=== PATIENT | male | born 1945 | race Caucasian/White ===

== ENCOUNTER → 2017-10-18 | Outpatient (REF) | payer MEDICARE | LOC: M SMT 17:00 | DX: R97.20 Elevated prostate specific antigen [PSA] (principal); Z79.82 Long term (current) use of aspirin; Z79.899 Other long term (current) drug therapy | CPT/HCPCS: 87086 ==

== ENCOUNTER → 2017-10-29 | Outpatient (CLI) | payer MEDICARE | LOC: M SMT PRO 09:07 | DX: C61 Malignant neoplasm of prostate (principal) | CPT/HCPCS: G0416 ==

== ENCOUNTER → 2017-11-15 | Outpatient (CLI) | payer MEDICARE ==
[~2017-11-15] MED LIST: ISOVUE-370 76% 100ML VIAL (Q9967) As Ordered
== END ==
LOC: M RAD 09:08
DX: C61 Malignant neoplasm of prostate (principal)
CPT/HCPCS: Q9967

== ENCOUNTER 2018-01-08 06:01 | Inpatient (IN) | payer MEDICARE ==
[2018-01-08] MEDS ORDERED: LR 1,000 ML IV (06:15)
[2018-01-08] MEDS ORDERED: ROCURONIUM BROMIDE 50 MG/5 ML VIAL As Ordered ×2 (07:12→09:22)
[2018-01-08] MEDS ORDERED: LIDOCAINE 2% INJ 100 MG/5 ML SDV (FOR ANES.) As Ordered (07:12)
[2018-01-08] MEDS ORDERED: dexameTHASONE 4 MG/ML 1ML VIAL (J1100) As Ordered (07:12)
[2018-01-08] MEDS ORDERED: PROPOFOL 200 MG/20 ML VIAL As Ordered (07:12)
[2018-01-08] MEDS ORDERED: fentaNYL 250 MCG/5 ML INJECTION (J3010) As Ordered (07:13)
[2018-01-08] MEDS ORDERED: MIDAZOLAM INJ 2 MG/2 ML VIAL (J2250) As Ordered ×2 (07:15→08:55)
[2018-01-08] MEDS ORDERED: ETOMIDATE INJ 20MG/10ML VIAL As Ordered (07:26)
[2018-01-08] MEDS ORDERED: LABETALOL HCL 100 MG/20 ML VIAL As Ordered (07:41)
[2018-01-08] MEDS: HEPARIN SOD (PORCINE) 5000 UNITS/ML VIAL SQ (07:46)
[2018-01-08] MEDS ORDERED: PERCOCET 5MG/325MG TAB PO (08:00)
[2018-01-08] MEDS ORDERED: MORPHINE 4 MG/ML 1ML VIAL/SYRINGE (J2270) IV (08:00)
[2018-01-08] MEDS ORDERED: NITROGLYCERIN 0.4 MG SUBL TABLET SL (08:00)
[2018-01-08] MEDS ORDERED: ACETAMINOPHEN TAB 650MG DOSE (2X325MG) PO (08:00)
[2018-01-08] MEDS ORDERED: ONDANSETRON 4MG/2ML VIAL (J2405) IV ×2 (08:00→13:00)
[2018-01-08] MEDS ORDERED: GLYCOPYRROLATE INJ 0.2 MG/ML 2 ML VIAL As Ordered ×2 (08:17→10:06)
[2018-01-08] MEDS: LIDOCAINE 1% SDV INJ 30 ML VIAL As Ordered (08:20)
[2018-01-08] MEDS: BUPIVACAINE HCL 0.25% 30 ML VIAL As Ordered (08:20)
[2018-01-08] MEDS: OXYMETAZOLINE NASAL SPRAY (AFRIN) As Ordered (08:40)
[2018-01-08] MEDS: DOCUSATE SODIUM 100 MG CAP PO ×2 (09:00→20:24)
[2018-01-08] MEDS ORDERED: HYDROmorphone HCL 2 MG/ML 1ML VIAL (J1170) As Ordered (10:06)
[2018-01-08] MEDS ORDERED: NEOSTIGMINE 10 MG/10 ML VIAL (J2710) As Ordered (10:06)
[2018-01-08] MEDS ORDERED: MORPHINE 10 MG/ML 1ML VIAL (J2270) IV (13:00)
[2018-01-08] MEDS: LR 1,000 ML IV (13:00)
[2018-01-08] MEDS ORDERED: fentaNYL 100 MCG/2 ML INJECTION (J3010) IV (13:00)
[2018-01-08 13:21] LABS: HEMATOCRIT 36.9 % (42.0-52.0); HEMOGLOBIN 12.3 g/dl (13.5-17.5); MEAN CORPUSCULAR HEMOGLOBIN 31.9 pg (27.0-33.0); MEAN CORPUSCULAR HGB CONC 33.3 g/dl (32.0-36.5); MEAN CORPUSCULAR VOLUME 95.8 fl (80.0-96.0); PLATELET COUNT, AUTOMATED 324 10^3/uL (150-450); RED BLOOD COUNT 3.85 10^6/uL (4.30-6.10); RED CELL DISTRIBUTION WIDTH 13.3 % (11.5-14.5); WHITE BLOOD COUNT 19.6 10^3/uL (4.0-10.0)
[2018-01-08 13:40] LABS: ANION GAP 7 MEQ/L (8-16); BLOOD UREA NITROGEN 11 MG/DL (7-18); CALCIUM LEVEL 9.1 MG/DL (8.8-10.2); CARBON DIOXIDE LEVEL 24 MEQ/L (21-32); CHLORIDE LEVEL 106 MEQ/L (98-107); GLOMERULAR FILTRATION RATE > 60.0 (>42); GLUCOSE, FASTING 122 MG/DL (70-100); POTASSIUM SERUM 4.3 MEQ/L (3.5-5.1); SODIUM LEVEL 137 MEQ/L (136-145)
[2018-01-08] MEDS: NS 1,000 ML IV ×3 (15:48→23:41)
[2018-01-08] MEDS: CEFAZOLIN SOD 1 GM in APPROPRIATE DILUENT 1 EA IV ×2 (16:40→23:45)
[2018-01-08] MEDS: HEPARIN SOD (PORCINE) 5000 UNITS/ML VIAL SC ×2 (16:41→20:24)
[2018-01-08] MEDS: PERCOCET 5MG/325MG TAB PO (20:24)
[2018-01-09] MEDS: HEPARIN SOD (PORCINE) 5000 UNITS/ML VIAL SC ×2 (05:44→15:05)
[2018-01-09 06:43] LABS: MEAN CORPUSCULAR HEMOGLOBIN 31.3 pg (27.0-33.0); MEAN CORPUSCULAR HGB CONC 33.7 g/dl (32.0-36.5); MEAN CORPUSCULAR VOLUME 92.9 fl (80.0-96.0); PLATELET COUNT, AUTOMATED 280 10^3/uL (150-450); RED BLOOD COUNT 3.23 10^6/uL (4.30-6.10); RED CELL DISTRIBUTION WIDTH 13.3 % (11.5-14.5); WHITE BLOOD COUNT 14.4 10^3/uL (4.0-10.0)
[2018-01-09 06:49] LABS: HEMOGLOBIN 10.1 g/dl (13.5-17.5)
[2018-01-09 07:07] LABS: ANION GAP 7 MEQ/L (8-16); BLOOD UREA NITROGEN 10 MG/DL (7-18); CALCIUM LEVEL 7.8 MG/DL (8.8-10.2); CARBON DIOXIDE LEVEL 22 MEQ/L (21-32); CHLORIDE LEVEL 108 MEQ/L (98-107); CREATININE FOR GFR 0.73 MG/DL (0.70-1.30); GLOMERULAR FILTRATION RATE > 60.0 (>42); GLUCOSE, FASTING 105 MG/DL (70-100); SODIUM LEVEL 137 MEQ/L (136-145)
[2018-01-09] MEDS: NS 1,000 ML IV (07:32)
[2018-01-09] MEDS: ASPIRIN 81 MG ENTERIC TAB PO (08:56)
[2018-01-09] MEDS: LOSARTAN 50 MG TAB PO (08:57)
[2018-01-09] MEDS: amLODIPine 5 MG TAB PO (08:58)
[2018-01-09] MEDS: ATORVASTATIN 10 MG TAB PO (08:58)
[2018-01-09] MEDS: PANTOPRAZOLE 40MG TAB (PROTONIX) PO (08:59)
[2018-01-09] MEDS: hydroCHLOROthiazide 25 MG TAB PO (08:59)
[2018-01-09] MEDS: METOPROLOL TART 25 MG TABLET PO (08:59)
[2018-01-09] MEDS: DOCUSATE SODIUM 100 MG CAP PO (09:00)
== END 2018-01-09 15:50 | disposition home or self-care (01) | DRG 708 ==
LOC: M OR 06:01 → M MS5PR 15:39
PROC: 0VT04ZZ Resection of Prostate, Percutaneous Endoscopic Approach (ICD-10-PCS; principal; 2018-01-08 07:30)
PROC: 07BC4ZX Excision of Pelvis Lymphatic, Percutaneous Endoscopic Approach, Diagnostic (ICD-10-PCS; 2018-01-08 07:30)
PROC: 0VT34ZZ Resection of Bilateral Seminal Vesicles, Percutaneous Endoscopic Approach (ICD-10-PCS; 2018-01-08 07:30)
PROC: 8E0W4CZ Robotic Assisted Procedure of Trunk Region, Percutaneous Endoscopic Approach (ICD-10-PCS; 2018-01-08 07:30)
PROC: 0VBQ4ZZ Excision of Bilateral Vas Deferens, Percutaneous Endoscopic Approach (ICD-10-PCS; 2018-01-08 07:30)
DX: C61 Malignant neoplasm of prostate (principal); I10 Essential (primary) hypertension; E78.5 Hyperlipidemia, unspecified; M06.9 Rheumatoid arthritis, unspecified; Z79.82 Long term (current) use of aspirin; Z79.02 Long term (current) use of antithrombotics/antiplatelets; Z79.899 Other long term (current) drug therapy; Z95.9 Presence of cardiac and vascular implant and graft, unspecified; Z87.891 Personal history of nicotine dependence

== ENCOUNTER → 2018-02-13 | Outpatient (CLI) | payer MEDICARE ==
[2018-02-13 18:48] LABS: PROSTATIC SPECIFIC AG MONITOR 2.78 NG/ML (< 4.0)
== END ==
LOC: M SMT 13:39
DX: C61 Malignant neoplasm of prostate (principal)
CPT/HCPCS: 84153

== ENCOUNTER 2018-02-18 01:25 | Inpatient (IN) | payer MEDICARE ==
[2018-02-18 01:56] LABS: BASO # 0.1 10^3/uL (0.0-0.2); BASO % 0.2 % (0.0-1.0); EOS % 0.1 % (0.0-3.0); HEMATOCRIT 31.8 % (42.0-52.0); HEMOGLOBIN 10.8 g/dl (13.5-17.5); IMMATURE GRANULOCYTE % 2.8 % (0-3.0); LYMPH # 0.3 10^3/uL (1.5-4.5); LYMPH % 0.8 % (24.0-44.0); MEAN CORPUSCULAR HEMOGLOBIN 31.3 pg (27.0-33.0); MEAN CORPUSCULAR VOLUME 92.2 fl (80.0-96.0); NEUTROPHILS % 91.1 % (36.0-66.0); PLATELET COUNT, AUTOMATED 273 10^3/uL (150-450); RED BLOOD COUNT 3.45 10^6/uL (4.30-6.10); RED CELL DISTRIBUTION WIDTH 13.5 % (11.5-14.5)
[2018-02-18 02:25] LABS: ALBUMIN 2.9 GM/DL (3.2-5.2); ALKALINE PHOSPHATASE 55 U/L (45-117); ALT/SGPT 19 U/L (12-78); ANION GAP 10 MEQ/L (8-16); AST/SGOT 22 U/L (7-37); BILIRUBIN,DIRECT 0.7 MG/DL (0.0-0.2); BILIRUBIN,TOTAL 1.4 MG/DL (0.2-1.0); BLOOD UREA NITROGEN 16 MG/DL (7-18); CALCIUM LEVEL 8.5 MG/DL (8.8-10.2); CARBON DIOXIDE LEVEL 21 MEQ/L (21-32); CHLORIDE LEVEL 108 MEQ/L (98-107); CREATININE FOR GFR 0.99 MG/DL (0.70-1.30); GLOMERULAR FILTRATION RATE > 60.0 (>42); GLUCOSE, FASTING 96 MG/DL (70-100); POTASSIUM SERUM 3.2 MEQ/L (3.5-5.1); SODIUM LEVEL 139 MEQ/L (136-145); TOTAL PROTEIN 5.8 GM/DL (6.4-8.2)
[2018-02-18 02:30] LABS: NEUTROPHILS # 36.2 10^3/uL (1.8-7.7); POS COUNT POS FLAG; POSITIVE DIFF POS FLAG; WHITE BLOOD COUNT 39.8 10^3/uL (4.0-10.0)
[2018-02-18] MEDS: ACETAMINOPHEN TAB 650MG DOSE (2X325MG) PO ×4 (03:07→21:08)
[2018-02-18] MEDS: PIPERACILLIN/TAZOBACTAM SOD 3.375 GM in D5W MINI-BAG PLUS 50 ML IV ×4 (03:15→21:08)
[2018-02-18] MEDS ORDERED: ONDANSETRON 4MG/2ML VIAL (J2405) IV (04:30)
[2018-02-18] MEDS: NS 1,000 ML IV ×3 (05:35→14:57)
[2018-02-18 08:16] LABS: REASON FOR REVIEW WBC/LEUKEMIA/BLAST; SLIDE REVIEW Report; SOURCE PERIPHERAL SMEAR
[2018-02-18] MEDS: FOLIC ACID 1 MG TAB PO (09:32)
[2018-02-18] MEDS: VITAMIN D 1,000 INTERNATIONAL UNITS TABLET PO (09:32)
[2018-02-18] MEDS: PANTOPRAZOLE 40MG TAB (PROTONIX) PO (09:32)
[2018-02-18] MEDS ORDERED: PILL CRUSHER/CUTTER 1 EACH XX (10:30)
[2018-02-18] MEDS: traMADol 50 MG TAB PO (14:59)
[2018-02-18] MEDS ORDERED: LIDOCAINE 1% MDV 20ML VIAL As Ordered (15:11)
[2018-02-18] MEDS: ATORVASTATIN 10 MG TAB PO (17:11)
[2018-02-18] MEDS: POTASSIUM CHLORIDE 10 MEQ SR TABLET PO (21:44)
[2018-02-19] MEDS: NS 1,000 ML IV ×2 (01:16→11:58)
[2018-02-19] MEDS: PIPERACILLIN/TAZOBACTAM SOD 3.375 GM in D5W MINI-BAG PLUS 50 ML IV ×4 (03:32→20:56)
[2018-02-19 05:39] LABS: ALBUMIN 2.1 GM/DL (3.2-5.2); ALBUMIN/GLOBULIN RATIO 0.64 (1.00-1.93); ALKALINE PHOSPHATASE 63 U/L (45-117); ALT/SGPT 13 U/L (12-78); ANION GAP 8 MEQ/L (8-16); AST/SGOT 18 U/L (7-37); BILIRUBIN,TOTAL 0.8 MG/DL (0.2-1.0); BLOOD UREA NITROGEN 16 MG/DL (7-18); CARBON DIOXIDE LEVEL 23 MEQ/L (21-32); CHLORIDE LEVEL 108 MEQ/L (98-107); CREATININE FOR GFR 0.91 MG/DL (0.70-1.30); GLOMERULAR FILTRATION RATE > 60.0 (>42); GLUCOSE, FASTING 108 MG/DL (70-100); MAGNESIUM LEVEL 1.8 MG/DL (1.8-2.4); POTASSIUM SERUM 3.3 MEQ/L (3.5-5.1); SODIUM LEVEL 139 MEQ/L (136-145); TOTAL PROTEIN 5.4 GM/DL (6.4-8.2)
[2018-02-19 06:02] LABS: BASO # 0.1 10^3/uL (0.0-0.2); BASO % 0.2 % (0.0-1.0); EOS # 0.4 10^3/uL (0.0-0.50); EOS % 1.2 % (0.0-3.0); HEMATOCRIT 28.7 % (42.0-52.0); HEMOGLOBIN 9.8 g/dl (13.5-17.5); IMMATURE GRANULOCYTE % 4.9 % (0-3.0); LYMPH # 0.3 10^3/uL (1.5-4.5); LYMPH % 0.9 % (24.0-44.0); MEAN CORPUSCULAR HEMOGLOBIN 31.4 pg (27.0-33.0); MEAN CORPUSCULAR HGB CONC 34.1 g/dl (32.0-36.5); MONO # 0.8 10^3/uL (0.0-0.8); MONO % 2.4 % (0.0-5.0); NEUTROPHILS % 90.4 % (36.0-66.0); PLATELET COUNT, AUTOMATED 260 10^3/uL (150-450); RED BLOOD COUNT 3.12 10^6/uL (4.30-6.10); RED CELL DISTRIBUTION WIDTH 13.5 % (11.5-14.5)
[2018-02-19 06:03] LABS: NEUTROPHILS # 30.6 10^3/uL (1.8-7.7); POS COUNT POS FLAG; POSITIVE DIFF POS FLAG; WHITE BLOOD COUNT 33.8 10^3/uL (4.0-10.0)
[2018-02-19] MEDS: VITAMIN D 1,000 INTERNATIONAL UNITS TABLET PO (08:37)
[2018-02-19] MEDS: ACETAMINOPHEN TAB 650MG DOSE (2X325MG) PO (08:37)
[2018-02-19] MEDS: FOLIC ACID 1 MG TAB PO (08:37)
[2018-02-19] MEDS: POTASSIUM CHLORIDE 10 MEQ SR TABLET PO (08:38)
[2018-02-19] MEDS: PANTOPRAZOLE 40MG TAB (PROTONIX) PO (08:38)
[2018-02-19] MEDS: ATORVASTATIN 10 MG TAB PO (17:28)
[2018-02-20] MEDS ORDERED: SLF 3 ML SYR IV (01:30)
[2018-02-20] MEDS: PIPERACILLIN/TAZOBACTAM SOD 3.375 GM in D5W MINI-BAG PLUS 50 ML IV (03:08)
[2018-02-20 05:42] LABS: BASO % 0.2 % (0.0-1.0); EOS # 0.6 10^3/uL (0.0-0.50); EOS % 2.8 % (0.0-3.0); HEMATOCRIT 27.3 % (42.0-52.0); HEMOGLOBIN 9.4 g/dl (13.5-17.5); IMMATURE GRANULOCYTE % 1.8 % (0-3.0); LYMPH % 4.2 % (24.0-44.0); MEAN CORPUSCULAR HEMOGLOBIN 31.4 pg (27.0-33.0); MEAN CORPUSCULAR HGB CONC 34.4 g/dl (32.0-36.5); MEAN CORPUSCULAR VOLUME 91.3 fl (80.0-96.0); MONO # 1.1 10^3/uL (0.0-0.8); MONO % 4.7 % (0.0-5.0); NEUTROPHILS # 19.4 10^3/uL (1.8-7.7); NEUTROPHILS % 86.3 % (36.0-66.0); PLATELET COUNT, AUTOMATED 261 10^3/uL (150-450); RED BLOOD COUNT 2.99 10^6/uL (4.30-6.10); RED CELL DISTRIBUTION WIDTH 13.7 % (11.5-14.5); WHITE BLOOD COUNT 22.5 10^3/uL (4.0-10.0)
[2018-02-20] MEDS: SLF 3 ML SYR IV ×3 (05:51→21:09)
[2018-02-20 06:02] LABS: ALBUMIN 2.1 GM/DL (3.2-5.2); ALBUMIN/GLOBULIN RATIO 0.62 (1.00-1.93); ALKALINE PHOSPHATASE 70 U/L (45-117); ALT/SGPT 14 U/L (12-78); ANION GAP 7 MEQ/L (8-16); AST/SGOT 19 U/L (7-37); BILIRUBIN,TOTAL 0.8 MG/DL (0.2-1.0); BLOOD UREA NITROGEN 14 MG/DL (7-18); CALCIUM LEVEL 8.4 MG/DL (8.8-10.2); CARBON DIOXIDE LEVEL 21 MEQ/L (21-32); CHLORIDE LEVEL 112 MEQ/L (98-107); CREATININE FOR GFR 0.68 MG/DL (0.70-1.30); GLOMERULAR FILTRATION RATE > 60.0 (>42); GLUCOSE, FASTING 93 MG/DL (70-100); MAGNESIUM LEVEL 2.2 MG/DL (1.8-2.4); POTASSIUM SERUM 3.3 MEQ/L (3.5-5.1); SODIUM LEVEL 140 MEQ/L (136-145); TOTAL PROTEIN 5.5 GM/DL (6.4-8.2)
[2018-02-20] MEDS: VITAMIN D 1,000 INTERNATIONAL UNITS TABLET PO (08:55)
[2018-02-20] MEDS: PANTOPRAZOLE 40MG TAB (PROTONIX) PO (08:55)
[2018-02-20] MEDS: FOLIC ACID 1 MG TAB PO (08:55)
[2018-02-20] MEDS: VANCOMYCIN HCL 1,000 MG, VIAL MATE ADAPTER 1 EACH in D5W 250 ML IV ×3 (08:56→21:09)
[2018-02-20] MEDS: ASPIRIN 81 MG ENTERIC TAB PO (10:53)
[2018-02-20] MEDS: hydroCHLOROthiazide 25 MG TAB PO (10:53)
[2018-02-20] MEDS: ATORVASTATIN 10 MG TAB PO (17:07)
[2018-02-20] MEDS: METOPROLOL SUCC *XL* 25MG TAB (TopROL *XL*) PO (21:07)
[2018-02-20] MEDS: LOSARTAN 50 MG TAB PO (21:08)
[2018-02-20] MEDS: amLODIPine 5 MG TAB PO (21:08)
[2018-02-21] MEDS: SLF 3 ML SYR IV ×2 (05:00→13:44)
[2018-02-21 07:24] LABS: BASO # 0.1 10^3/uL (0.0-0.2); BASO % 0.3 % (0.0-1.0); EOS # 0.6 10^3/uL (0.0-0.50); EOS % 4.1 % (0.0-3.0); HEMATOCRIT 29.1 % (42.0-52.0); HEMOGLOBIN 9.9 g/dl (13.5-17.5); IMMATURE GRANULOCYTE % 0.9 % (0-3.0); LYMPH % 6.7 % (24.0-44.0); MEAN CORPUSCULAR HEMOGLOBIN 30.7 pg (27.0-33.0); MEAN CORPUSCULAR VOLUME 90.1 fl (80.0-96.0); MONO # 1.7 10^3/uL (0.0-0.8); MONO % 11.2 % (0.0-5.0); NEUTROPHILS # 11.4 10^3/uL (1.8-7.7); NEUTROPHILS % 76.8 % (36.0-66.0); PLATELET COUNT, AUTOMATED 324 10^3/uL (150-450); RED BLOOD COUNT 3.23 10^6/uL (4.30-6.10); RED CELL DISTRIBUTION WIDTH 13.7 % (11.5-14.5); WHITE BLOOD COUNT 14.8 10^3/uL (4.0-10.0)
[2018-02-21 07:48] LABS: ALBUMIN 2.2 GM/DL (3.2-5.2); ALBUMIN/GLOBULIN RATIO 0.58 (1.00-1.93); ALKALINE PHOSPHATASE 92 U/L (45-117); ALT/SGPT 21 U/L (12-78); ANION GAP 8 MEQ/L (8-16); AST/SGOT 23 U/L (7-37); BLOOD UREA NITROGEN 9 MG/DL (7-18); CALCIUM LEVEL 8.1 MG/DL (8.8-10.2); CARBON DIOXIDE LEVEL 23 MEQ/L (21-32); CHLORIDE LEVEL 108 MEQ/L (98-107); CREATININE FOR GFR 0.66 MG/DL (0.70-1.30); GLOMERULAR FILTRATION RATE > 60.0 (>42); GLUCOSE, FASTING 87 MG/DL (70-100); SODIUM LEVEL 139 MEQ/L (136-145)
[2018-02-21] MEDS: ASPIRIN 81 MG ENTERIC TAB PO (08:09)
[2018-02-21] MEDS: FOLIC ACID 1 MG TAB PO (08:09)
[2018-02-21] MEDS: PANTOPRAZOLE 40MG TAB (PROTONIX) PO (08:09)
[2018-02-21] MEDS: hydroCHLOROthiazide 25 MG TAB PO (08:09)
[2018-02-21] MEDS: VITAMIN D 1,000 INTERNATIONAL UNITS TABLET PO (08:10)
[2018-02-21] MEDS: VANCOMYCIN HCL 1,000 MG, VIAL MATE ADAPTER 1 EACH in D5W 250 ML IV (08:36)
[2018-02-21] MEDS: POTASSIUM CHLORIDE 10 MEQ SR TABLET PO ×2 (11:13→14:32)
== END 2018-02-21 14:50 | disposition home or self-care (01) | DRG 872 ==
LOC: M MSPAV 02-20 14:05 → M ED 01:25 → M ED INP 03:08 → M PCU 13:50
PROVIDERS: Urology
PROC: 079 Lymphatic and Hemic Systems, Drainage (ICD-10-PCS; principal; 2018-02-18)
DX: A41.9 Sepsis, unspecified organism (principal); L04.8 Acute lymphadenitis of other sites; B95.62 Methicillin resistant Staphylococcus aureus infection as the cause of diseases classified elsewhere; E78.5 Hyperlipidemia, unspecified; M06.9 Rheumatoid arthritis, unspecified; I10 Essential (primary) hypertension; Z79.02 Long term (current) use of antithrombotics/antiplatelets; Z79.899 Other long term (current) drug therapy; Z95.9 Presence of cardiac and vascular implant and graft, unspecified; Z98.41 Cataract extraction status, right eye; Z87.891 Personal history of nicotine dependence; Z85.46 Personal history of malignant neoplasm of prostate; I25.2 Old myocardial infarction

== ENCOUNTER 2018-03-14 22:22 | Inpatient (IN) | payer MEDICARE ==
[2018-03-14] MEDS: NS 1,000 ML IV (20:00)
[2018-03-14 20:26] LABS: BASO % 0.3 % (0.0-1.0); EOS # 0.2 10^3/uL (0.0-0.50); HEMATOCRIT 32.7 % (42.0-52.0); HEMOGLOBIN 10.7 g/dl (13.5-17.5); IMMATURE GRANULOCYTE % 0.6 % (0-3.0); LYMPH # 0.6 10^3/uL (1.5-4.5); LYMPH % 3.7 % (24.0-44.0); MEAN CORPUSCULAR HEMOGLOBIN 30.1 pg (27.0-33.0); MEAN CORPUSCULAR HGB CONC 32.7 g/dl (32.0-36.5); MEAN CORPUSCULAR VOLUME 92.1 fl (80.0-96.0); MONO # 1.1 10^3/uL (0.0-0.8); MONO % 7.1 % (0.0-5.0); NEUTROPHILS # 13.8 10^3/uL (1.8-7.7); NEUTROPHILS % 87.3 % (36.0-66.0); PLATELET COUNT, AUTOMATED 354 10^3/uL (150-450); RED BLOOD COUNT 3.55 10^6/uL (4.30-6.10); RED CELL DISTRIBUTION WIDTH 14.8 % (11.5-14.5); WHITE BLOOD COUNT 15.8 10^3/uL (4.0-10.0)
[2018-03-14 20:41] LABS: LACTIC ACID SEPSIS PROTOCOL 0.8 MMOL/L (0.4-2.0)
[2018-03-14 20:42] LABS: ALBUMIN/GLOBULIN RATIO 0.68 (1.00-1.93); ALKALINE PHOSPHATASE 103 U/L (45-117); ALT/SGPT 19 U/L (12-78); ANION GAP 11 MEQ/L (8-16); AST/SGOT 19 U/L (7-37); BILIRUBIN,DIRECT 0.4 MG/DL (0.0-0.2); BILIRUBIN,TOTAL 0.9 MG/DL (0.2-1.0); BLOOD UREA NITROGEN 16 MG/DL (7-18); CALCIUM LEVEL 9.3 MG/DL (8.8-10.2); CARBON DIOXIDE LEVEL 25 MEQ/L (21-32); CHLORIDE LEVEL 101 MEQ/L (98-107); CREATININE FOR GFR 0.74 MG/DL (0.70-1.30); GLOMERULAR FILTRATION RATE > 60.0 (>42); GLUCOSE, FASTING 95 MG/DL (70-100); LIPASE 105 U/L (73-393); POTASSIUM SERUM 3.5 MEQ/L (3.5-5.1); SODIUM LEVEL 137 MEQ/L (136-145); TOTAL PROTEIN 7.4 GM/DL (6.4-8.2)
[2018-03-14 20:43] LABS: INR 1.06; PROTHROMBIN TIME 13.9 SECONDS (12.1-14.4)
[2018-03-14 20:44] LABS: PARTIAL THROMBOPLASTIN TIME 32.6 SECONDS (25.4-37.6)
[2018-03-14 22:04] LABS: KETONE, URINE AUTO RFX TRACE mg/dL (NEGATIVE); LEUKOCYTE ESTERASE UR AUTO RFX NEGATIVE (NEGATIVE); NITRITE, URINE AUTO RFX NEGATIVE (NEGATIVE); RBC, URINE AUTO RFX 3 /HPF (0-3); SPECIFIC GRAVITY UR AUTO RFX 1.039 (1.002-1.035); SQUAM EPITHELIAL CELL UR AURFX 0 /HPF (0-6); WBC, URINE AUTO RFX 3 /HPF (0-3)
[2018-03-14] MEDS: ACETAMINOPHEN TAB 650MG DOSE (2X325MG) PO (22:53)
[2018-03-15] MEDS: LOSARTAN 50 MG TAB PO ×2 (01:11→20:46)
[2018-03-15] MEDS: NS 1,000 ML IV ×2 (01:11→15:36)
[2018-03-15] MEDS: METOPROLOL TART 25 MG TABLET PO ×2 (01:11→20:46)
[2018-03-15] MEDS: VANCOMYCIN HCL 1,000 MG, VIAL MATE ADAPTER 1 EACH in D5W 250 ML IV ×3 (01:11→20:45)
[2018-03-15] MEDS: ATORVASTATIN 10 MG TAB PO ×2 (01:12→20:46)
[2018-03-15] MEDS: amLODIPine 5 MG TAB PO ×2 (01:12→20:46)
[2018-03-15 06:05] LABS: BASO % 0.3 % (0.0-1.0); EOS # 0.3 10^3/uL (0.0-0.50); EOS % 2.7 % (0.0-3.0); HEMATOCRIT 29.7 % (42.0-52.0); HEMOGLOBIN 9.9 g/dl (13.5-17.5); IMMATURE GRANULOCYTE % 0.5 % (0-3.0); LYMPH # 0.8 10^3/uL (1.5-4.5); LYMPH % 6.4 % (24.0-44.0); MEAN CORPUSCULAR HEMOGLOBIN 30.7 pg (27.0-33.0); MEAN CORPUSCULAR HGB CONC 33.3 g/dl (32.0-36.5); MONO # 1.2 10^3/uL (0.0-0.8); MONO % 9.1 % (0.0-5.0); NEUTROPHILS # 10.3 10^3/uL (1.8-7.7); PLATELET COUNT, AUTOMATED 326 10^3/uL (150-450); RED BLOOD COUNT 3.23 10^6/uL (4.30-6.10); RED CELL DISTRIBUTION WIDTH 14.8 % (11.5-14.5); WHITE BLOOD COUNT 12.8 10^3/uL (4.0-10.0)
[2018-03-15 06:29] LABS: ANION GAP 11 MEQ/L (8-16); BLOOD UREA NITROGEN 11 MG/DL (7-18); CALCIUM LEVEL 8.9 MG/DL (8.8-10.2); CARBON DIOXIDE LEVEL 24 MEQ/L (21-32); CHLORIDE LEVEL 103 MEQ/L (98-107); GLOMERULAR FILTRATION RATE > 60.0 (>42); GLUCOSE, FASTING 84 MG/DL (70-100); POTASSIUM SERUM 3.5 MEQ/L (3.5-5.1); SODIUM LEVEL 138 MEQ/L (136-145)
[2018-03-15] MEDS ORDERED: LACTASE ENZYME 9000 UNIT PO (07:00)
[2018-03-15] MEDS: MULTIVITAMINS/MINERALS THERAP 1 TAB PO (09:04)
[2018-03-15] MEDS: hydroCHLOROthiazide 25 MG TAB PO (09:04)
[2018-03-15] MEDS: ENOXAPARIN 40 MG/0.4 ML SYRINGE (J1650) SC (09:04)
[2018-03-15] MEDS: ASCORBIC ACID 500 MG TAB PO (09:04)
[2018-03-15] MEDS: PANTOPRAZOLE 40MG TAB (PROTONIX) PO (09:05)
[2018-03-15] MEDS: VITAMIN D 1,000 INTERNATIONAL UNITS TABLET PO (09:05)
[2018-03-15] MEDS: FOLIC ACID 1 MG TAB PO (09:05)
[2018-03-15] MEDS: ASPIRIN 81 MG ENTERIC TAB PO (09:05)
[2018-03-15] MEDS: ACETAMINOPHEN TAB 650MG DOSE (2X325MG) PO ×2 (14:07→20:50)
[2018-03-16] MEDS: NS 1,000 ML IV (00:25)
[2018-03-16 07:09] LABS: BASO % 0.2 % (0.0-1.0); EOS # 0.5 10^3/uL (0.0-0.50); EOS % 4.6 % (0.0-3.0); HEMATOCRIT 29.4 % (42.0-52.0); HEMOGLOBIN 9.8 g/dl (13.5-17.5); IMMATURE GRANULOCYTE % 0.5 % (0-3.0); LYMPH # 0.9 10^3/uL (1.5-4.5); LYMPH % 7.9 % (24.0-44.0); MEAN CORPUSCULAR HEMOGLOBIN 30.5 pg (27.0-33.0); MEAN CORPUSCULAR HGB CONC 33.3 g/dl (32.0-36.5); MEAN CORPUSCULAR VOLUME 91.6 fl (80.0-96.0); MONO # 1.2 10^3/uL (0.0-0.8); MONO % 11.2 % (0.0-5.0); NEUTROPHILS # 8.3 10^3/uL (1.8-7.7); NEUTROPHILS % 75.6 % (36.0-66.0); PLATELET COUNT, AUTOMATED 371 10^3/uL (150-450); RED BLOOD COUNT 3.21 10^6/uL (4.30-6.10); RED CELL DISTRIBUTION WIDTH 14.8 % (11.5-14.5)
[2018-03-16 07:33] LABS: ANION GAP 10 MEQ/L (8-16); BLOOD UREA NITROGEN 10 MG/DL (7-18); CALCIUM LEVEL 8.7 MG/DL (8.8-10.2); CARBON DIOXIDE LEVEL 23 MEQ/L (21-32); CHLORIDE LEVEL 108 MEQ/L (98-107); GLOMERULAR FILTRATION RATE > 60.0 (>42); GLUCOSE, FASTING 85 MG/DL (70-100); POTASSIUM SERUM 3.2 MEQ/L (3.5-5.1); SODIUM LEVEL 141 MEQ/L (136-145)
[2018-03-16] MEDS: PANTOPRAZOLE 40MG TAB (PROTONIX) PO (09:22)
[2018-03-16] MEDS: VITAMIN D 1,000 INTERNATIONAL UNITS TABLET PO (09:22)
[2018-03-16] MEDS: FOLIC ACID 1 MG TAB PO (09:22)
[2018-03-16] MEDS: VANCOMYCIN HCL 1,000 MG, VIAL MATE ADAPTER 1 EACH in D5W 250 ML IV ×2 (09:22→20:17)
[2018-03-16] MEDS: ASCORBIC ACID 500 MG TAB PO (09:22)
[2018-03-16] MEDS: hydroCHLOROthiazide 25 MG TAB PO (09:23)
[2018-03-16] MEDS: MULTIVITAMINS/MINERALS THERAP 1 TAB PO (09:24)
[2018-03-16] MEDS: POTASSIUM CHLORIDE 10 MEQ SR TABLET PO (14:43)
[2018-03-16] MEDS: ATORVASTATIN 10 MG TAB PO (21:54)
[2018-03-16] MEDS: LOSARTAN 50 MG TAB PO (21:54)
[2018-03-16] MEDS: METOPROLOL TART 25 MG TABLET PO (21:54)
[2018-03-16] MEDS: amLODIPine 5 MG TAB PO (21:55)
[2018-03-17 07:07] LABS: BASO % 0.2 % (0.0-1.0); EOS # 0.4 10^3/uL (0.0-0.50); EOS % 4.3 % (0.0-3.0); HEMATOCRIT 28.3 % (42.0-52.0); HEMOGLOBIN 9.5 g/dl (13.5-17.5); IMMATURE GRANULOCYTE % 0.5 % (0-3.0); LYMPH % 10.7 % (24.0-44.0); MEAN CORPUSCULAR HEMOGLOBIN 30.1 pg (27.0-33.0); MEAN CORPUSCULAR HGB CONC 33.6 g/dl (32.0-36.5); MEAN CORPUSCULAR VOLUME 89.6 fl (80.0-96.0); MONO # 1.5 10^3/uL (0.0-0.8); MONO % 16.4 % (0.0-5.0); NEUTROPHILS % 67.9 % (36.0-66.0); PLATELET COUNT, AUTOMATED 401 10^3/uL (150-450); RED BLOOD COUNT 3.16 10^6/uL (4.30-6.10); RED CELL DISTRIBUTION WIDTH 14.7 % (11.5-14.5); WHITE BLOOD COUNT 8.9 10^3/uL (4.0-10.0)
[2018-03-17 07:29] LABS: ANION GAP 9 MEQ/L (8-16); BLOOD UREA NITROGEN 7 MG/DL (7-18); CALCIUM LEVEL 8.6 MG/DL (8.8-10.2); CARBON DIOXIDE LEVEL 25 MEQ/L (21-32); CHLORIDE LEVEL 106 MEQ/L (98-107); CREATININE FOR GFR 0.68 MG/DL (0.70-1.30); GLOMERULAR FILTRATION RATE > 60.0 (>42); GLUCOSE, FASTING 85 MG/DL (70-100); POTASSIUM SERUM 3.1 MEQ/L (3.5-5.1); SODIUM LEVEL 140 MEQ/L (136-145)
[2018-03-17] MEDS: VANCOMYCIN HCL 1,000 MG, VIAL MATE ADAPTER 1 EACH in D5W 250 ML IV ×2 (08:54→20:51)
[2018-03-17] MEDS: ASCORBIC ACID 500 MG TAB PO (09:08)
[2018-03-17] MEDS: MULTIVITAMINS/MINERALS THERAP 1 TAB PO (09:08)
[2018-03-17] MEDS: VITAMIN D 1,000 INTERNATIONAL UNITS TABLET PO (09:09)
[2018-03-17] MEDS: FOLIC ACID 1 MG TAB PO (09:09)
[2018-03-17] MEDS: PANTOPRAZOLE 40MG TAB (PROTONIX) PO (09:09)
[2018-03-17] MEDS: hydroCHLOROthiazide 25 MG TAB PO (10:11)
[2018-03-17] MEDS: POTASSIUM CHLORIDE 10 MEQ SR TABLET PO (10:11)
[2018-03-17] MEDS ORDERED: LIDOCAINE 1% MDV 20ML VIAL As Ordered ×2 (13:52→15:18)
[2018-03-17] MEDS: METOPROLOL TART 25 MG TABLET PO (21:35)
[2018-03-17] MEDS: LOSARTAN 50 MG TAB PO (21:35)
[2018-03-17] MEDS: amLODIPine 5 MG TAB PO (21:35)
[2018-03-17] MEDS: ATORVASTATIN 10 MG TAB PO (21:35)
[2018-03-18 07:42] LABS: HEMATOCRIT 30.4 % (42.0-52.0); MEAN CORPUSCULAR HEMOGLOBIN 29.9 pg (27.0-33.0); MEAN CORPUSCULAR HGB CONC 32.9 g/dl (32.0-36.5); PLATELET COUNT, AUTOMATED 499 10^3/uL (150-450); RED BLOOD COUNT 3.34 10^6/uL (4.30-6.10); RED CELL DISTRIBUTION WIDTH 14.7 % (11.5-14.5)
[2018-03-18 08:12] LABS: ANION GAP 6 MEQ/L (8-16); BLOOD UREA NITROGEN 7 MG/DL (7-18); CALCIUM LEVEL 9.2 MG/DL (8.8-10.2); CARBON DIOXIDE LEVEL 28 MEQ/L (21-32); CHLORIDE LEVEL 105 MEQ/L (98-107); CREATININE FOR GFR 0.61 MG/DL (0.70-1.30); GLOMERULAR FILTRATION RATE > 60.0 (>42); GLUCOSE, FASTING 81 MG/DL (70-100); SODIUM LEVEL 139 MEQ/L (136-145)
[2018-03-18] MEDS: VANCOMYCIN HCL 1,000 MG, VIAL MATE ADAPTER 1 EACH in D5W 250 ML IV (08:44)
[2018-03-18] MEDS: MULTIVITAMINS/MINERALS THERAP 1 TAB PO (08:45)
[2018-03-18] MEDS: hydroCHLOROthiazide 25 MG TAB PO (08:45)
[2018-03-18] MEDS: PANTOPRAZOLE 40MG TAB (PROTONIX) PO (08:45)
[2018-03-18] MEDS: ASCORBIC ACID 500 MG TAB PO (08:45)
[2018-03-18] MEDS: VITAMIN D 1,000 INTERNATIONAL UNITS TABLET PO (08:45)
[2018-03-18] MEDS: FOLIC ACID 1 MG TAB PO (08:45)
== END 2018-03-18 11:45 | disposition home or self-care (01) | DRG 862 ==
LOC: M ED INP 23:50 → M MS5PR 03-15 00:44 → M ED 22:22
PROC: 0W9J3ZZ Drainage of Pelvic Cavity, Percutaneous Approach (ICD-10-PCS; principal; 2018-03-17)
DX: T81.4XXA Infection following a procedure, initial encounter (principal); K65.1 Peritoneal abscess; E87.6 Hypokalemia; I10 Essential (primary) hypertension; I25.10 Atherosclerotic heart disease of native coronary artery without angina pectoris; E55.9 Vitamin D deficiency, unspecified; M06.9 Rheumatoid arthritis, unspecified; C61 Malignant neoplasm of prostate; Z79.899 Other long term (current) drug therapy; E78.5 Hyperlipidemia, unspecified; I73.9 Peripheral vascular disease, unspecified; Z95.2 Presence of prosthetic heart valve; I88.0 Nonspecific mesenteric lymphadenitis; Y83.8 Other surgical procedures as the cause of abnormal reaction of the patient, or of later complication, without mention of misadventure at the time of the procedure

== ENCOUNTER → 2018-03-26 | Outpatient (CLI) | payer MEDICARE ==
[2018-03-26 18:37] LABS: ANION GAP 7 MEQ/L (8-16); BLOOD UREA NITROGEN 15 MG/DL (7-18); CALCIUM LEVEL 9.7 MG/DL (8.8-10.2); CARBON DIOXIDE LEVEL 27 MEQ/L (21-32); CHLORIDE LEVEL 104 MEQ/L (98-107); CREATININE FOR GFR 0.98 MG/DL (0.70-1.30); GLOMERULAR FILTRATION RATE > 60.0 (>42); GLUCOSE, FASTING 87 MG/DL (70-100); SODIUM LEVEL 138 MEQ/L (136-145)
[2018-03-26 18:40] LABS: HEMATOCRIT 34.3 % (42.0-52.0); MEAN CORPUSCULAR HEMOGLOBIN 30.2 pg (27.0-33.0); MEAN CORPUSCULAR HGB CONC 32.1 g/dl (32.0-36.5); MEAN CORPUSCULAR VOLUME 94.2 fl (80.0-96.0); PLATELET COUNT, AUTOMATED 596 10^3/uL (150-450); RED BLOOD COUNT 3.64 10^6/uL (4.30-6.10); RED CELL DISTRIBUTION WIDTH 15.9 % (11.5-14.5); WHITE BLOOD COUNT 5.7 10^3/uL (4.0-10.0)
== END ==
LOC: M SMT 14:52
DX: Z01.818 Encounter for other preprocedural examination (principal); I89.8 Other specified noninfective disorders of lymphatic vessels and lymph nodes
CPT/HCPCS: 80048

== ENCOUNTER 2018-04-02 10:20 | Inpatient (IN) | payer MEDICARE ==
[2018-04-02] MEDS: ASPIRIN 81 MG ENTERIC TAB PO (09:00)
[2018-04-02] MEDS: LR 1,000 ML IV ×2 (11:55→18:15)
[2018-04-02] MEDS: VANCOMYCIN HCL 1,000 MG, VIAL MATE ADAPTER 1 EACH in D5W 250 ML IV (14:20)
[2018-04-02] MEDS ORDERED: ONDANSETRON 4MG/2ML VIAL (J2405) As Ordered (15:28)
[2018-04-02] MEDS ORDERED: PROPOFOL 200 MG/20 ML VIAL As Ordered (15:28)
[2018-04-02] MEDS ORDERED: dexameTHASONE 4 MG/ML 1ML VIAL (J1100) As Ordered (15:28)
[2018-04-02] MEDS ORDERED: LIDOCAINE 2% INJ 100 MG/5 ML SDV (FOR ANES.) As Ordered (15:28)
[2018-04-02] MEDS ORDERED: KETOROLAC 60 MG/2 ML VIAL (J1885) As Ordered (15:28)
[2018-04-02] MEDS ORDERED: NEOSTIGMINE 10 MG/10 ML VIAL (J2710) As Ordered (15:28)
[2018-04-02] MEDS ORDERED: GLYCOPYRROLATE INJ 0.2 MG/ML 2 ML VIAL As Ordered (15:28)
[2018-04-02] MEDS ORDERED: ROCURONIUM BROMIDE 50 MG/5 ML VIAL As Ordered (15:28)
[2018-04-02] MEDS ORDERED: MIDAZOLAM INJ 2 MG/2 ML VIAL (J2250) As Ordered (15:29)
[2018-04-02] MEDS ORDERED: fentaNYL 100 MCG/2 ML INJECTION (J3010) As Ordered ×2 (15:29→16:46)
[2018-04-02] MEDS: GENTAMICIN 80 MG in APPROPRIATE DILUENT 1 EA IV (15:54)
[2018-04-02] MEDS: HEPARIN SOD (PORCINE) 5000 UNITS/ML VIAL SQ (16:07)
[2018-04-02] MEDS ORDERED: MORPHINE 4 MG/ML 1ML VIAL/SYRINGE (J2270) IV (16:15)
[2018-04-02] MEDS ORDERED: ACETAMINOPHEN TAB 650MG DOSE (2X325MG) PO (16:15)
[2018-04-02] MEDS ORDERED: PERCOCET 5MG/325MG TAB PO (16:15)
[2018-04-02] MEDS ORDERED: ONDANSETRON 4MG/2ML VIAL (J2405) IV ×2 (16:15→18:15)
[2018-04-02] MEDS: BUPIVACAINE HCL 0.25% 30 ML VIAL As Ordered (16:45)
[2018-04-02] MEDS: LIDOCAINE 1% SDV INJ 30 ML VIAL As Ordered (16:45)
[2018-04-02] MEDS ORDERED: HYDROMORPHONE HCL 0.5 MG/ 0.5 ML SYRINGE (J1170 PER 1) IV (18:15)
[2018-04-02] MEDS ORDERED: fentaNYL 100 MCG/2 ML INJECTION (J3010) IV (18:15)
[2018-04-02 18:27] LABS: HEMATOCRIT 33.1 % (42.0-52.0); HEMOGLOBIN 10.9 g/dl (13.5-17.5); MEAN CORPUSCULAR HEMOGLOBIN 30.8 pg (27.0-33.0); MEAN CORPUSCULAR HGB CONC 32.9 g/dl (32.0-36.5); MEAN CORPUSCULAR VOLUME 93.5 fl (80.0-96.0); PLATELET COUNT, AUTOMATED 319 10^3/uL (150-450); RED BLOOD COUNT 3.54 10^6/uL (4.30-6.10); RED CELL DISTRIBUTION WIDTH 16.3 % (11.5-14.5)
[2018-04-02] MEDS: PERCOCET 5MG/325MG TAB PO ×2 (18:37→20:05)
[2018-04-02 18:46] LABS: ANION GAP 9 MEQ/L (8-16); BLOOD UREA NITROGEN 11 MG/DL (7-18); CALCIUM LEVEL 9.6 MG/DL (8.8-10.2); CARBON DIOXIDE LEVEL 26 MEQ/L (21-32); CHLORIDE LEVEL 105 MEQ/L (98-107); CREATININE FOR GFR 0.91 MG/DL (0.70-1.30); GLOMERULAR FILTRATION RATE > 60.0 (>42); GLUCOSE, FASTING 91 MG/DL (70-100); POTASSIUM SERUM 4.6 MEQ/L (3.5-5.1); SODIUM LEVEL 140 MEQ/L (136-145)
[2018-04-02] MEDS: DOCUSATE SODIUM 100 MG CAP PO (22:05)
[2018-04-02] MEDS: NS 1,000 ML IV (22:05)
[2018-04-02] MEDS: amLODIPine 5 MG TAB PO (22:06)
[2018-04-02] MEDS: HEPARIN SOD (PORCINE) 5000 UNITS/ML VIAL SC (22:06)
[2018-04-02] MEDS: ATORVASTATIN 10 MG TAB PO (22:06)
[2018-04-03] MEDS: GENTAMICIN 80 MG in APPROPRIATE DILUENT 1 EA IV ×2 (00:42→07:51)
[2018-04-03] MEDS: VANCOMYCIN HCL 1,000 MG, VIAL MATE ADAPTER 1 EACH in D5W 250 ML IV (03:18)
[2018-04-03] MEDS: HEPARIN SOD (PORCINE) 5000 UNITS/ML VIAL SC (05:26)
[2018-04-03] MEDS: PERCOCET 5MG/325MG TAB PO (05:26)
[2018-04-03 06:19] LABS: HEMATOCRIT 30.1 % (42.0-52.0); HEMOGLOBIN 9.9 g/dl (13.5-17.5); MEAN CORPUSCULAR HEMOGLOBIN 30.4 pg (27.0-33.0); MEAN CORPUSCULAR HGB CONC 32.9 g/dl (32.0-36.5); MEAN CORPUSCULAR VOLUME 92.3 fl (80.0-96.0); PLATELET COUNT, AUTOMATED 283 10^3/uL (150-450); RED BLOOD COUNT 3.26 10^6/uL (4.30-6.10); RED CELL DISTRIBUTION WIDTH 16.2 % (11.5-14.5); WHITE BLOOD COUNT 6.8 10^3/uL (4.0-10.0)
[2018-04-03 06:37] LABS: ANION GAP 9 MEQ/L (8-16); BLOOD UREA NITROGEN 17 MG/DL (7-18); CALCIUM LEVEL 8.9 MG/DL (8.8-10.2); CARBON DIOXIDE LEVEL 23 MEQ/L (21-32); CHLORIDE LEVEL 103 MEQ/L (98-107); CREATININE FOR GFR 0.87 MG/DL (0.70-1.30); GLOMERULAR FILTRATION RATE > 60.0 (>42); GLUCOSE, FASTING 114 MG/DL (70-100); POTASSIUM SERUM 4.7 MEQ/L (3.5-5.1); SODIUM LEVEL 135 MEQ/L (136-145)
[2018-04-03] MEDS: DOCUSATE SODIUM 100 MG CAP PO (09:47)
[2018-04-03] MEDS: PANTOPRAZOLE 40MG TAB (PROTONIX) PO (09:48)
[2018-04-03] MEDS: METOPROLOL SUCC *XL* 25MG TAB (TopROL *XL*) PO (09:48)
[2018-04-03] MEDS: LOSARTAN 50 MG TAB PO (09:49)
[2018-04-03] MEDS: ASPIRIN 81 MG ENTERIC TAB PO (09:49)
[2018-04-03] MEDS: hydroCHLOROthiazide 25 MG TAB PO (09:50)
== END 2018-04-03 14:31 | disposition home or self-care (01) | DRG 862 ==
LOC: M OR 10:20 → M MS5PR 21:06
PROC: 0W9J3ZZ Drainage of Pelvic Cavity, Percutaneous Approach (ICD-10-PCS; principal; 2018-04-02 12:00)
DX: T81.4XXA Infection following a procedure, initial encounter (principal); K65.1 Peritoneal abscess; Z85.46 Personal history of malignant neoplasm of prostate; I89.8 Other specified noninfective disorders of lymphatic vessels and lymph nodes; Y82.9 Unspecified medical devices associated with adverse incidents

== ENCOUNTER → 2018-04-24 | Outpatient (CLI) | payer MEDICARE ==
[2018-04-24 16:02] LABS: PROSTATIC SPECIFIC AG MONITOR 1.05 NG/ML (< 4.0)
== END ==
LOC: M ONCR 13:06
DX: C61 Malignant neoplasm of prostate (principal)
CPT/HCPCS: 84153

== ENCOUNTER 2018-05-28 10:45 | Day surgery (SDC) | payer MEDICARE ==
[~2018-05-28 10:45] MED LIST changes: +ACETAMINOPHEN 325 MG TAB PO; -ISOVUE-370 76% 100ML VIAL (Q9967) As Ordered; +PHENYLEPHRINE HCL 10 % OPHTH. SOL 5ML OS
[2018-05-28] MEDS: TROPICAMIDE 1% OPHTH SOLN 2ML OS (11:56)
[2018-05-28] MEDS: CYCLOPENTOLATE 2% OPHTH SOLN 2ML BTL OS (11:56)
[2018-05-28] MEDS: PHENYLEPHRINE 2.5% OPHTH SOL 2ML OS (11:56)
[2018-05-28] MEDS: OFLOXACIN 0.3 % (OCUFLOX) OPTH SOL 5ML OS (11:56)
[2018-05-28] MEDS: LIDOCAINE 3.5 % 1ML OPHTH TOPICAL GEL OU (11:56)
[2018-05-28] MEDS ORDERED: METOPROLOL SUCC *XL* 25MG TAB (TopROL *XL*) As Ordered (12:51)
[2018-05-28] MEDS: METOPROLOL SUCC *XL* 25MG TAB (TopROL *XL*) PO (12:54)
[2018-05-28] MEDS ORDERED: MIDAZOLAM INJ 2 MG/2 ML VIAL (J2250) As Ordered (13:14)
[2018-05-28] MEDS ORDERED: fentaNYL 100 MCG/2 ML INJECTION (J3010) As Ordered (13:14)
[2018-05-28] MEDS: POVIDONE-IODINE 5% OPHTH PREP SOL 30ML As Ordered (13:16)
[2018-05-28] MEDS: HEALON DUET (HEALON 10MG/ML 0.55ML & HEALON ENDOCOAT 30MG/ML 0.85ML) As Ordered (13:17)
[2018-05-28] MEDS: LIDOCAINE 2% W/EPIN INJ 20ML **PRES FREE XX (13:18)
[2018-05-28] MEDS: LIDOCAINE 1% SDV 5 ML VIAL As Ordered (13:18)
[2018-05-28] MEDS: MOXIFLOXACIN IN BSS 0.25MG/0.25ML INTRACAMERAL INJ (OR EYE ONLY)(J2280) As Ordered (13:18)
[2018-05-28] MEDS: BSS with VANC/TOB/EPI for EYE CASES IR (13:18)
[2018-05-28] MEDS: TRIAMCINOLONE PRES FR 40 MG/ML 1ML(TRIESENCE)(OR EYE ONLY)(J3300 PER 1MG) As Ordered (13:18)
[2018-05-28] MEDS ORDERED: TRIMETHOBENZAMIDE 300 MG CAP PO (13:45)
[2018-05-28] MEDS: AcetaZOLAMIDE 500 MG ER CAP PO (13:48)
== END 2018-05-28 13:56 | disposition home or self-care (01) ==
LOC: M SDC 10:45
DX: H25.9 Unspecified age-related cataract (principal); I25.10 Atherosclerotic heart disease of native coronary artery without angina pectoris; I10 Essential (primary) hypertension; E78.5 Hyperlipidemia, unspecified; M81.0 Age-related osteoporosis without current pathological fracture; Z85.46 Personal history of malignant neoplasm of prostate; Z79.899 Other long term (current) drug therapy; Z79.02 Long term (current) use of antithrombotics/antiplatelets; Z98.61 Coronary angioplasty status
CPT/HCPCS: 66984

== ENCOUNTER → 2018-06-10 | Outpatient (CLI) | payer MEDICARE | LOC: M ONCR 13:03 | DX: C61 Malignant neoplasm of prostate (principal) | CPT/HCPCS: G0463 ==

== ENCOUNTER → 2018-07-28 | Outpatient (CLI) | payer MEDICARE ==
[2018-07-28 13:42] LABS: PROSTATIC SPECIFIC AG MONITOR < 0.0 NG/ML (< 4.0)
== END ==
LOC: M SMT 10:28
DX: C61 Malignant neoplasm of prostate (principal)
CPT/HCPCS: 84153

== ENCOUNTER → 2018-08-05 | Outpatient (CLI) | payer MEDICARE | LOC: M ONCR 13:25 | DX: C61 Malignant neoplasm of prostate (principal) | CPT/HCPCS: G0463 ==

== ENCOUNTER → 2018-08-27 | Outpatient (CLI) | payer MEDICARE ==
[2018-08-27 13:34] LABS: BASO % 0.3 % (0.0-1.0); EOS # 0.2 10^3/uL (0.0-0.50); EOS % 1.7 % (0.0-3.0); HEMATOCRIT 36.8 % (42.0-52.0); HEMOGLOBIN 12.1 g/dl (13.5-17.5); IMMATURE GRANULOCYTE % 0.5 % (0-3.0); LYMPH # 1.1 10^3/uL (1.5-4.5); LYMPH % 12.3 % (24.0-44.0); MEAN CORPUSCULAR HEMOGLOBIN 31.8 pg (27.0-33.0); MEAN CORPUSCULAR HGB CONC 32.9 g/dl (32.0-36.5); MEAN CORPUSCULAR VOLUME 96.6 fl (80.0-96.0); MONO # 0.9 10^3/uL (0.0-0.8); MONO % 10.1 % (0.0-5.0); NEUTROPHILS # 6.5 10^3/uL (1.8-7.7); NEUTROPHILS % 75.1 % (36.0-66.0); PLATELET COUNT, AUTOMATED 336 10^3/uL (150-450); RED BLOOD COUNT 3.81 10^6/uL (4.30-6.10); RED CELL DISTRIBUTION WIDTH 13.9 % (11.5-14.5); WHITE BLOOD COUNT 8.7 10^3/uL (4.0-10.0)
[2018-08-27 14:29] LABS: ERYTHROCYTE SEDIMENTATION RATE 12 mm/hr (0-20)
[2018-08-27 15:04] LABS: ALBUMIN 3.8 GM/DL (3.2-5.2); ALBUMIN/GLOBULIN RATIO 1.15 (1.00-1.93); ALKALINE PHOSPHATASE 54 U/L (45-117); ALT/SGPT 35 U/L (12-78); ANION GAP 8 MEQ/L (8-16); AST/SGOT 40 U/L (7-37); BILIRUBIN,TOTAL 0.7 MG/DL (0.2-1.0); BLOOD UREA NITROGEN 20 MG/DL (7-18); C REACTIVE PROTEIN QUANTITATIV < 0.30 MG/DL (0.00-0.30); CALCIUM LEVEL 9.7 MG/DL (8.8-10.2); CARBON DIOXIDE LEVEL 25 MEQ/L (21-32); CHLORIDE LEVEL 108 MEQ/L (98-107); CREATININE FOR GFR 0.88 MG/DL (0.70-1.30); FERRITIN 320 NG/ML (26-388); FOLATE > 24.0 NG/ML (>5.4); GLOMERULAR FILTRATION RATE > 60.0 (>42); GLUCOSE, FASTING 87 MG/DL (70-100); HEPATITIS B SURFACE ANTIBODY NEGATIVE (POSITIVE); HEPATITIS B SURFACE ANTIGEN NEGATIVE (NEGATIVE); HEPATITIS C VIRUS ABY INDEX 0.1 INDEX (<0.8); IRON (FE) 126 UG/DL (65-175); PERCENT SATURATION 45.3 % (19.7-50.0); POTASSIUM SERUM 4.3 MEQ/L (3.5-5.1); SODIUM LEVEL 141 MEQ/L (136-145); TOTAL IRON BINDING CAPACITY 278 UG/DL (250-450); TOTAL PROTEIN 7.1 GM/DL (6.4-8.2); VITAMIN B12 LEVEL 954 PG/ML (247-911)
[2018-08-28 08:06] LABS: HEPATITIS B CORE ANTIBODY IGG Negative (Negative)
[2018-08-30 00:07] LABS: QuantiFERON-TB Gold Plus Negative (Negative)
== END ==
LOC: M SMT 11:01
DX: M06.9 Rheumatoid arthritis, unspecified (principal)
CPT/HCPCS: 82746

== ENCOUNTER → 2018-11-11 | Outpatient (CLI) | payer MEDICARE ==
[~2018-11-11] MED LIST changes: +ACET650T3 PO; -ACETAMINOPHEN 325 MG TAB PO; +ASPI1TAB PO; +CALC600T57 PO; +CALCTAB88 PO; +CHON150C PO; +CIPR-249 PO; +CLOP75TA2 PO; +COLA100C5 PO; +COZA100T2 PO; +FISH1200 PO; +FISH120012 PO; +FLAX10008 PO; +FOLI1TAB11 PO; +FOLI400T PO; +FOLI800C PO; +GLUC15009 PO; +GLUC1CAP10 PO; +HYDR25TAB PO; +LACT3000 PO; +LEFL1TAB4 PO; +LIPI10TA PO; +METH5INJ SC; +METO1TAB32 PO; +METO1TAB87 PO; +NITR4TASL SL; +NORV5TAB PO; +OMEG100011 PO; +OXYC1TAB23 PO; +PERC5TAB12 PO; -PHENYLEPHRINE HCL 10 % OPHTH. SOL 5ML OS; +PLAV1TAB2 PO; +PROB250C PO; +PROT1TAB2 PO; +TYLE325T5 PO; +VITA-112 PO; +VITA10006 PO; +VITA200016 PO; +VITMTA PO; +ZYVO1TAB PO; +[UNRECOGNIZED DRUG - CODE] INJ; +[UNRECOGNIZED DRUG - CODE] PO; +[UNRECOGNIZED DRUG - CODE] SC
== END ==
LOC: M LAB 13:29
PROVIDERS: ATTEND Urology
DX: C61 Malignant neoplasm of prostate (principal)

== ENCOUNTER → 2018-12-03 | Outpatient (CLI) | payer MEDICARE ==
--- NOTE | 2018-12-04 10:02 | RADONC ---
RADIATION ONCOLOGY PROGRESS NOTE DATE: 12/03/2018 CHART NUMBER: [id number] DIAGNOSIS: Prostate cancer. STAGE: Stage III C, [id number], poorly differentiated [place] score 9 (4+5), grade group 5, PSA 6.77. ECOG PERFORMANCE STATUS: 0. PROGRESS NOTE: Mr. Renee is a 72-year-old white male with the diagnosis of a stage III C, [id number], [place] score 9 (4+5) grade group 5 with initial PSA of 6.77 prostatic adenocarcinoma who initially presented to us back on April 24, 2018 for a lengthy discussion with the possibility of postoperative radiation therapy. At that time, I spent an extensive amount of time with him answering multiple questions, and the patient has continued to have great hesitancy and was concerned with his urinary incontinence. We spent well over an hour going through pluses and minuses of radiation, its potential side effects, and other issues. The patient then could not make up his mind and after speaking with his urologist on multiple occasions, made another appointment with me on 06/10/2018. At that time, once again we spent an extensive period of time talking about the pluses and minuses of radiation and once again going through all the issues exhaustively. The patient was still concerned and wanted to continue doing his Kegel exercises. Two months later on 08/05/2018 the patient once again returned for another consultation and once again we spent well over an hour going through the pluses and minuses of radiation, the logic behind the treatment, the reasoning to offer the treatment, the risks of no treatment, etc., etc., etc. The patient once again wanted to wait until after the winter to consider radiation. We therefore set him up with an appointment to return today to give me his final decision on radiation one way or the other. The patient presented today and began asking the same questions that we have discussed to exhaustion on all his previous visit. I made clear to this gentleman at this point he has one question the needs to be answered, Do you want radiation or not? I noted that on the previous visit he was going to see Dr. Telles and discuss all these issues as well. I asked him if he did so and he did say yes. I let him know that I do not think I can answer any further questions or be of any further assistance than we have already done at this point and that it is either time for a decision or he can continue his followup and management with his urologist. After that short discussion, the patient still had questions and did not make up his mind yet. In light of this, I have discharged him from my followup. I let him know specifically and repeatedly that I am available to him at anytime. If he decides he wishes to undergo radiation we are more than glad to see him at any time whatsoever. If Dr. Telles or one of his other physicians wishes to refer him back for radiation, we are more than glad to see him then if he could make a decision. At this point, I do not think further hours of discussion will help. Indeed the few general questions I asked him today clearly led me to believe that he is not able to make a decision at this time either. He was quite hesitant to began asking about is urinary incontinence all over again. Once again, I have discharge this gentleman from our followup. He cannot apparently commit even after all these months to a treatment decision. He will continue his follow up with his urologist Dr. Telles and continue with hormonal therapy there. cc: MD Edin Staples MD MTDD
== END ==
LOC: M ONCR 12:59
PROVIDERS: ATTEND Radiology Radiation Oncology
DX: C61 Malignant neoplasm of prostate (principal)

== ENCOUNTER → 2019-01-20 | Outpatient (CLI) | payer MEDICARE ==
[~2019-01-20] MED LIST changes: -ASPI1TAB PO; +ASPI81TA26 PO
[2019-01-20 13:54] LABS: HEMATOCRIT 35.1 % (42.0-52.0); HEMOGLOBIN 11.5 g/dl (13.5-17.5); LYMPH % 20.7 % (24.0-44.0); MEAN CORPUSCULAR HEMOGLOBIN 32.3 pg (27.0-33.0); MEAN CORPUSCULAR HGB CONC 32.8 g/dl (32.0-36.5); MEAN CORPUSCULAR VOLUME 98.5 fl (80.0-96.0); NEUTROPHILS # 13.8 10^3/uL (1.8-7.7); NEUTROPHILS % 70.3 % (36.0-66.0); RED BLOOD COUNT 3.56 10^6/uL (4.30-6.10)
[2019-01-20 14:00] LABS: WHITE BLOOD COUNT 19.6 10^3/uL (4.0-10.0)
--- NOTE | 2019-01-20 19:26 | RADONC ---
RADIATION ONCOLOGY CONSULTATION NOTE DATE: 01/20/2019 CHART NUMBER: [id number] DIAGNOSIS: Prostate cancer. STAGE: IIIC, T3a, N0, M0, Shara score 9 (4-5), grade group 5, PSA 6.77. ECOG PERFORMANCE STATUS: 0 CONSULTATION NOTE: Mr. Renee is a 73-year-old white male with a diagnosis of a stage IIIC, T3a, N0, M0, poorly differentiated, [place] score 9 (4-5) adenocarcinoma of the prostate who initially presented to me on April 24, 2018 for consideration of postoperative radiation therapy in attempt to increase the likelihood of achieving local control and cure. After spending a very lengthy amount of time going over his questions at that time, he could not make up his mind. He represented on multiple occasions for re-consultation, including in May of that year as well as July, and again in November of this year. I had not set up any more consultations with this gentleman, but we received a phone call within the last few days as he is saying he changed his mind and he does wish to undergo radiation. In light of this, we are now seeing him again for another discussion and initiation of treatment. At this time, the patient does say he wishes to undergo radiation, and we, therefore, will be scheduling his treatments. For his history, please see my multiple previous history and physical notes on this patient. REVIEW OF SYSTEMS: The patient's review of systems continues to be positive for urinary incontinency, which is unchanged basically since surgery. He also has impotency. His review of systems is otherwise noncontributory. He denies nausea, vomiting, fevers, chills, night sweats, diplopia, headaches, anxiety or depression, anorexia, weight loss, visual disturbances, chest pain, urinary or bowel difficulties, bone pain, or neurological problems. PHYSICAL EXAMINATION: The patient is a well-developed, well-nourished male in no acute distress. HEENT exam is normocephalic, atraumatic. Extraocular movements are intact. There is no palpable cervical, supraclavicular, infraclavicular, axillary, or inguinal lymphadenopathy present. Lungs are clear to auscultation and percussion. Heart has a regular rate and rhythm. Abdomen is benign with no hepatosplenomegaly, masses, or tenderness. The patient has a normal anal sphincter tone. His prostate bed is smooth with no evidence of nodularity. Skeletal examination reveals no tenderness to pressure or percussion of the bony skeleton. Extremities reveal no clubbing, cyanosis, or edema. Neurologic exam is grossly intact, as is the remainder of the physical examination. The patient has now decided that he does wish to undergo radiation. I did discuss with him in detail the potential benefits as well as possible acute and chronic sequelae of external beam radiation therapy. We discussed the logistics of treatment planning, simulation and subsequent fractionated daily radiation treatments. I have scheduled the patient for the next available simulation slot and radiation treatments will begin subsequently. Thank you for allowing us to participate in the care of this very pleasant gentleman. Hopefully the patient will come back to us as scheduled for radiation treatments. cc: MD Edin Staples MD
== END ==
LOC: M ONCR 12:39
PROVIDERS: ATTEND Radiology Radiation Oncology
DX: C61 Malignant neoplasm of prostate (principal)
CPT/HCPCS: 36415; 84153; 85027; G0463

== ENCOUNTER → 2019-02-06 | Outpatient (CLI) | payer MEDICARE | LOC: M SMT 12:59 | PROVIDERS: ATTEND Urology | DX: C61 Malignant neoplasm of prostate (principal) ==

== ENCOUNTER → 2019-02-13 | Outpatient (RCR) | payer MEDICARE ==
--- NOTE | 2019-01-22 16:31 | RADONC ---
RADIATION ONCOLOGY SIMULATION NOTE DATE: 01/22/2019 CHART NUMBER: [id number] SIMULATION NOTE: Mr. Renee was taken to the CT scan for CT simulation of his prostate bed field. CT was accomplished without difficulty or discomfort. Radiation treatment planning is underway and radiation treatments will begin subsequently. An immobilization device was created and used throughout the course of treatment. It was created without difficulty or discomfort. I was physically present throughout the course CT simulation.
--- NOTE | 2019-02-10 15:23 | RADONC ---
RADIATION ONCOLOGY PROGRESS NOTE DATE: 02/10/2019 CHART NUMBER: [id number] Mr. Renee is presently at a dose of 720 cGy to his prostate bed and is tolerating treatments quite well at this point with no complaints related to his radiation therapy. He is having no urinary or bowel difficulties. No bone pain. REVIEW OF SYSTEMS: The patient's review of systems is noncontributory. Denies nausea, vomiting, fevers, chills, night sweats, diplopia, headaches, anxiety or depression, anorexia, weight loss, visual disturbances, chest pain, urinary or bowel difficulties, bone pain, or neurological problems. PHYSICAL EXAMINATION: The patient's skin is in good condition with no evidence of radiation change present. There is no moist or dry desquamation. The remainder of his physical exam remains unchanged. Mr. Renee is tolerating treatments quite well, and radiation will continue as scheduled.
== END ==
LOC: M ONCR 01-22 12:43
PROVIDERS: ATTEND Radiology Radiation Oncology
DX: C61 Malignant neoplasm of prostate (principal)

== ENCOUNTER → 2019-02-23 | Outpatient (CLI) | payer MEDICARE ==
[2019-02-23 15:58] LABS: BASO % 0.4 % (0.0-1.0); EOS # 0.4 10^3/uL (0.0-0.50); EOS % 4.6 % (0.0-3.0); HEMATOCRIT 32.9 % (42.0-52.0); HEMOGLOBIN 11.1 g/dl (13.5-17.5); LYMPH # 0.9 10^3/uL (1.5-4.5); MEAN CORPUSCULAR HEMOGLOBIN 32.5 pg (27.0-33.0); MEAN CORPUSCULAR HGB CONC 33.7 g/dl (32.0-36.5); MEAN CORPUSCULAR VOLUME 96.2 fl (80.0-96.0); MONO # 0.8 10^3/uL (0.0-0.8); MONO % 9.6 % (0.0-5.0); NEUTROPHILS # 6.2 10^3/uL (1.8-7.7); NEUTROPHILS % 73.8 % (36.0-66.0); PLATELET COUNT, AUTOMATED 266 10^3/uL (150-450); RED BLOOD COUNT 3.42 10^6/uL (4.30-6.10); WHITE BLOOD COUNT 8.3 10^3/uL (4.0-10.0)
[2019-02-23 16:09] LABS: BLOOD UREA NITROGEN 11 MG/DL (7-18); CALCIUM LEVEL 9.8 MG/DL (8.8-10.2); CARBON DIOXIDE LEVEL 27 MEQ/L (21-32); CHLORIDE LEVEL 96 MEQ/L (98-107); CREATININE FOR GFR 0.82 MG/DL (0.70-1.30); GLOMERULAR FILTRATION RATE > 60.0 (>42); GLUCOSE, FASTING 89 MG/DL (70-100); POTASSIUM SERUM 4.4 MEQ/L (3.5-5.1); SODIUM LEVEL 131 MEQ/L (136-145)
== END ==
LOC: M LAB 15:14
PROVIDERS: ATTEND Surgery Vascular Surgery
DX: I70.213 Atherosclerosis of native arteries of extremities with intermittent claudication, bilateral legs (principal)

== ENCOUNTER 2019-03-13 12:58 | Outpatient (RCR) | payer MEDICARE ==
--- NOTE | 2019-02-16 14:04 | RADONC ---
RADIATION ONCOLOGY PROGRESS NOTE: DATE: 02/16/2019 CHART NUMBER: [id number] Mr. Renee, with a diagnosis of adenocarcinoma of the prostate, is currently receiving local regional radiotherapy to the prostate bed. He is currently at a dose of 1440 cGy 1440 of an anticipated 6660 cGy and treatments are going well. REVIEW OF SYSTEMS: He denies any nausea, vomiting, diarrhea, dysuria, hematuria or blood per rectum. His energy level is such that he is able to maintain many day-to-day activities without any alteration of his lifestyle. Skin irritation is denied. EXAMINATION FINDINGS: Skin within the irradiated volume shows no evidence of erythema and certainly no focal desquamation. Lymphatics: No palpable peripheral lymphadenopathy is appreciated. The remainder of the physical examination is unchanged. IMPRESSION: Tolerating therapy well. PLAN: Treatment is to continue.
--- NOTE | 2019-02-24 07:00 | RADONC ---
RADIATION ONCOLOGY PROGRESS NOTE DATE: 02/23/2019 CHART NUMBER: [id number] Mr. Renee is presently at a dose of 2160 cGy to his prostate bed and is tolerating treatments quite well at this point with no complaints related to his radiation therapy. He is having no urinary or bowel difficulties, other than his normal urinary incontinence. REVIEW OF SYSTEMS: The patient's review of systems is unchanged. He continues to have urinary incontinence, but it is otherwise unremarkable. He denies nausea, vomiting, fevers, chills, night sweats, diplopia, headaches, anxiety or depression, anorexia, weight loss, visual disturbances, chest pain, urinary or bowel difficulties, bone pain or neurological problems. PHYSICAL EXAMINATION: The patient's skin is in good condition with no evidence of radiation change present. There is no moist or dry desquamation. The remainder of his physical exam remains unchanged. Mr. Renee is tolerating treatments quite well and radiation will continue as scheduled.
--- NOTE | 2019-03-03 07:34 | RADONC ---
RADIATION ONCOLOGY PROGRESS NOTE DATE: 03/02/2019 CHART #: [id number] Mr. Renee is presently at a dose of 3060 cGy to his prostate bed and is tolerating treatments quite well at this point with no significant difficulties related to his radiation therapy. He did tell me he had some loose bowel movements, but upon further questioning he is taking laxatives daily. REVIEW OF SYSTEMS: The patient's review of systems is noncontributory. Denies nausea, vomiting, fevers, chills, night sweats, diplopia, headaches, anxiety or depression, anorexia, weight loss, visual disturbances, chest pain, urinary or bowel difficulties, bone pain, or neurological problems. PHYSICAL EXAMINATION: The patient's skin is in good condition with no evidence of radiation change present. There is no moist or dry desquamation. The remainder of his physical exam remains unchanged. Mr. Renee is tolerating treatments quite well and radiation will continue as scheduled.
--- NOTE | 2019-03-10 12:01 | RADONC ---
RADIATION ONCOLOGY PROGRESS NOTE: DATE OF SERVICE: 03/09/2019 CHART NUMBER: [id number] Mr. Renee with a diagnosis of prostate cancer is currently receiving local regional radiotherapy to the prostate bed to prevent a local regional recurrence. Thus far he has achieved a dose of 3960 cGy of an anticipated 4500 cGy. After the completion of 4500 cGy he is scheduled to receive a field reduction and an additional 2160 cGy bringing the ultimate dose to 6660 cGy. Thus far he has no complaints referable to his disease or to his treatments. He is complaining of a great deal of generalized pain. The patient has rheumatoid arthritis and has generalized pains as he was most recently taken off of his methotrexate. He has been placed on oral steroids as well as Plaquenil. REVIEW OF SYSTEMS: He denies any nausea, vomiting, diarrhea, dysuria, hematuria or blood per rectum. His energy level is significantly diminished as he finds it hard to sleep secondary to his arthritic pain. The remainder of the review of systems is unchanged. PHYSICAL EXAMINATION: Skin within the irradiated volume shows no evidence of erythema and certainly no focal desquamation. There is no palpable peripheral lymphadenopathy. The remainder of the physical examination is unchanged. IMPRESSION: Tolerating therapy reasonably well. PLAN: Treatments to continue.
== END 2019-03-15 ==
LOC: M ONCR 12:58
PROVIDERS: ATTEND Radiology Radiation Oncology
DX: C61 Malignant neoplasm of prostate (principal)

== ENCOUNTER → 2019-03-17 | Outpatient (CLI) | payer MEDICARE ==
[~2019-03-17] MED LIST changes: +ACET650T15 PO; +AUGM875T28 PO; +BORAGE OIL PO; +BUPIVACAINE HCL 0.5% 10 ML VIAL As Ordered ONE; +CALC1TAB9 PO; +COQ-100C5 PO; +CVS1500T PO; +CVS1CAP2 PO; +HEPARIN 1,000 UNITS/ML 10ML VIAL (FOR RADIOLOGY& DIALYSIS ONLY) As Ordered ONE; +ISOVUE-300 61% 50ML VIAL (Q9967) As Ordered ONE; +LEVO500T3 PO; +LIDOCAINE 2% MDV 20 ML VIAL As Ordered ONE; +METH5INJ IJ; +MIDAZOLAM INJ 2 MG/2 ML VIAL (J2250) As Ordered ONE; +MIRA3350 PO; +OPTI400C PO; +PLAQ200T4 PO; +PRED10TA2 PO; +PRED5PAK PO; +VALS1TAB68 PO; +VITA500T PO; +diphenhydrAMINE INJ 50MG/ML VIAL (J1200) As Ordered ONE; +fentaNYL 100 MCG/2 ML INJECTION (J3010) As Ordered ONE
--- NOTE | 2019-03-17 10:44 | ROOPDOC ---
[facility] Report Of Operation Report of Operation Shun Treviño MD Mar 17, 2019 10:44
--- NOTE | 2019-03-25 14:52 | REPIR ---
DATE OF PROCEDURE: 03/17/2019 ATTENDING SURGEON: Dr. Bhavya Treviño ASSISTANTS: Quynh Rice and Brenda Monae. PREOPERATIVE DIAGNOSIS: Left foot discoloration and pain. POSTOPERATIVE DIAGNOSIS: Left foot discoloration and pain. PROCEDURE: Aortogram, iliofemoral angiogram, selective left common femoral artery catheter placement with left lower extremity angiogram, Mynx closure of the right common femoral arteriotomy. INDICATION: The patient is a 73-year-old male with left foot pain and nonpalpable pulses who will undergo an angiogram with possible angioplasty stent and/or atherectomy. ANESTHESIA: Local sedation. FLUOROSCOPY TIME: 2.0 minutes. CONTRAST: 16.5 mL. HEPARIN: None. COMPLICATIONS: None. DRAINS: None. SPECIMENS: None. IMPLANTS: None. DESCRIPTION OF PROCEDURE: The patient was taken to the angiography suite, placed supine on the angiography table, and then prepped and draped in a standard surgical fashion. The right common femoral artery was cannulated. A catheter placed in the aorta and aortogram performed. Catheter was pulled down level of the bifurcation iliac arteries and an iliofemoral angiogram was performed. Catheter was directed over the bifurcation iliac arteries and a left lower extremity angiogram was performed. Catheter was then removed and a Mynx closure was used close the arteriotomy in the right common femoral artery with an additional 10 minutes of adjunctive pressure applied for hemostasis. Dressings were then applied. The patient tolerated procedure well. All instrument, sponge, and needle counts were correct at the end the case. There were no complications. Dr. Treviño was present for and directed the entire case. The patient was transferred to the holding area and subsequently discharged in stable condition.
== END ==
LOC: M IRPRO 09:00
PROVIDERS: ATTEND Surgery Vascular Surgery
DX: M79.672 Pain in left foot (principal); L81.9 Disorder of pigmentation, unspecified; I10 Essential (primary) hypertension; E78.5 Hyperlipidemia, unspecified; M06.9 Rheumatoid arthritis, unspecified; C61 Malignant neoplasm of prostate; H40.9 Unspecified glaucoma
CPT/HCPCS: 36246; C1760; C1769; C1887; C1894; G0269; J1200; J2250; J3010; Q9967

== ENCOUNTER 2019-04-02 13:04 | Outpatient (RCR) | payer MEDICARE ==
--- NOTE | 2019-03-16 17:22 | RADONC ---
RADIATION ONCOLOGY PROGRESS NOTE DATE OF SERVICE: 03/16/2019 CHART NUMBER: [id number] Mr. Renee with a diagnosis of adenocarcinoma of prostate is currently receiving local regional radiotherapy to the prostate bed to prevent a local regional recurrence. Thus far, he has achieved a dose of 4860 CGY of an anticipated 6660 CGY. He has no problems related to his disease or to his treatment as he denies any nausea, vomiting, diarrhea, dysuria, hematuria or blood per rectum. He has intermittent diarrhea and intermittent constipation. His energy level is diminished but primarily because of the multiple array of rheumatoid medicines he is taking. He has generalized pains when he was removed from his methotrexate. REVIEW OF SYSTEMS: He denies any nausea, vomiting, diarrhea, dysuria, hematuria or blood per rectum. His energy level is diminished as stated above. The remainder of the review of systems is unchanged. EXAMINATION FINDINGS: He is a well-nourished, well-developed male in no acute distress. Skin within the irradiated volume shows no changes. There is no palpable peripheral lymphadenopathy. The remainder of the physical examination is unchanged. IMPRESSION: Tolerating therapy reasonably well. PLAN: Treatments to continue. MTDD
--- NOTE | 2019-03-23 16:26 | RADONC ---
RADIATION ONCOLOGY PROGRESS NOTE DATE: 03/23/2019 CHART NUMBER: [id number] PROGRESS NOTE: Mr. Renee is presently at a dose of 5220 cGy to his prostate bed and is tolerating treatments quite well at this point with no significant difficulties related to his radiation therapy other than some rectal bleeding. He does not know whether or not there are clots in the toilet. He reports that the bleeding, however is worse than it was last week. He has otherwise no significant complaints related to his radiation therapy. PHYSICAL EXAMINATION: The patient's skin is in good condition with no evidence of moist or dry desquamation. The remainder of his physical exam remains unchanged. Mr. Renee is tolerating his treatments quite well. I have ordered a CBC to further evaluate his bleeding issue.
[2019-03-24 11:01] LABS: APPEARANCE, URINE CLEAR (CLEAR); BACTERIA, URINE AUTO NEGATIVE (NEGATIVE); BILIRUBIN, URINE AUTO NEGATIVE (NEGATIVE); BLOOD, URINE BLOOD NEGATIVE (NEGATIVE); COLOR, URINE YELLOW (YELLOW); GLUCOSE, URINE (UA) AUTO NEGATIVE (NEGATIVE); KETONE, URINE AUTO NEGATIVE (NEGATIVE); LEUKOCYTE ESTERASE, URINE AUTO NEGATIVE (NEGATIVE); NITRITE, URINE AUTO NEGATIVE (NEGATIVE); PROTEIN, URINE AUTO NEGATIVE (NEGATIVE); RBC, URINE AUTO 1 /HPF (0-3); SPECIFIC GRAVITY URINE AUTO 1.013 (1.002-1.035); SQUAMOUS EPITHELIAL CELL UR AU 0 /HPF (0-6); UROBILINOGEN, URINE AUTO 0.2 mg/dL (0.0-2.0); WBC, URINE AUTO 0 /HPF (0-3)
--- NOTE | 2019-03-25 10:09 | RADONC ---
RADIATION ONCOLOGY PROGRESS NOTE DATE: 03/24/2019 CHART NUMBER: [id number] PROGRESS NOTE: Mr. Renee had complaints yesterday about some rectal bleeding and I ordered a CBC to be undertaken. The CBC did show an elevated white count and some slight anemia. The white count was 14.6. The patient has been under care for an infection involving his left foot and is scheduled to see his physician who has been managing this today. I gave the patient a copy of the new blood test. Apparently, he had been on antibiotics which he reported that he completed on Saturday. In addition, I ordered a urinalysis and culture and sensitivity. The urinalysis came back with no signs of infection at this time. We await the culture and sensitivity, however. We will continue to follow and I have recommended a repeat blood test next week to see if there is any change in his low grade anemia. His hemoglobin is 12.1 and his hematocrit is 36.5.
--- NOTE | 2019-03-31 08:56 | RADONC ---
RADIATION ONCOLOGY PROGRESS NOTE DATE OF SERVICE: 03/30/2019 CHART NUMBER: [id number]. PROGRESS NOTE: Mr. Renee is presently at a dose of 6120 cGy to his prostate bed and is tolerating treatments quite well at this point with no significant complaints related to his radiation therapy. Overall, he has been doing quite well throughout the course of treatment. REVIEW OF SYSTEMS: The patient's review of systems is largely noncontributory. He denies nausea, vomiting, fevers, chills, night sweats, diplopia, headaches, anxiety or depression, anorexia, weight loss, visual disturbances, chest pain, urinary or bowel difficulties, bone pain, or neurological problems. PHYSICAL EXAMINATION: The patient's skin is in good condition with no evidence of moist or dry desquamation. The remainder of his physical exam remains unchanged. Mr. Renee is tolerating treatments quite well, and radiation will continue as scheduled.
[~2019-04-02 13:04] MED LIST changes: -ACET650T15 PO; -AUGM875T28 PO; -BORAGE OIL PO; -BUPIVACAINE HCL 0.5% 10 ML VIAL As Ordered ONE; -CALC1TAB9 PO; -COQ-100C5 PO; -CVS1500T PO; -CVS1CAP2 PO; -HEPARIN 1,000 UNITS/ML 10ML VIAL (FOR RADIOLOGY& DIALYSIS ONLY) As Ordered ONE; -ISOVUE-300 61% 50ML VIAL (Q9967) As Ordered ONE; -LEVO500T3 PO; -LIDOCAINE 2% MDV 20 ML VIAL As Ordered ONE; -METH5INJ IJ; -MIDAZOLAM INJ 2 MG/2 ML VIAL (J2250) As Ordered ONE; -MIRA3350 PO; -OPTI400C PO; -PLAQ200T4 PO; -PRED10TA2 PO; -PRED5PAK PO; -VALS1TAB68 PO; -VITA500T PO; -diphenhydrAMINE INJ 50MG/ML VIAL (J1200) As Ordered ONE; -fentaNYL 100 MCG/2 ML INJECTION (J3010) As Ordered ONE
--- NOTE | 2019-04-06 15:25 | RADONC ---
RADIATION ONCOLOGY TREATMENT SUMMARY DATE: 04/02/2019 CHART NUMBER: [id number] DIAGNOSIS: Prostate cancer. STAGE: Stage III C, [id number] [place] score 9 (4+5), grade group 5, PSA 6.77. ECOG performance status 0. TREATMENT SUMMARY: Mr. Renee is a 73-year-old white male with the diagnosis of a stage III C, [id number] poorly differentiated [place] score 9 (4+5) adenocarcinoma of prostate who presented to me for consideration of postoperative radiation therapy in an attempt to increase the likelihood of achieving local control and cure. We treated the patient to his prostate bed for a dose of 6660 cGy delivered in 37 fractions of 180 cGy each over 56 elapsed days from 02/04/2019 through 04/02/2019. The patient's prostate bed was treated on the linear accelerator utilizing a 15 MV photon beam. We initially treated larger lawrence with a dose of 4500 cGy and subsequently coned down to deliver the remaining 2160 cGy in order to maintain the small bowel and other structures within their tolerance limits. Mr. Renee tolerated his treatments fairly well and was able complete therapy as prescribed. I have scheduled the patient to see me again in 1 month for further followup. He will also continue to be followed by his other physicians as well. cc: MD Edin Staples MD
== END 2019-04-15 ==
LOC: M ONCR 13:04
PROVIDERS: ATTEND Radiology Radiation Oncology
DX: C61 Malignant neoplasm of prostate (principal)

== ENCOUNTER 2019-04-14 12:00 | Outpatient (CLI) | payer MEDICARE ==
[~2019-04-14 12:00] MED LIST changes: +BUPIVACAINE HCL 0.5% 10 ML VIAL As Ordered ONE; +HEPARIN 1,000 UNITS/ML 10ML VIAL (FOR RADIOLOGY& DIALYSIS ONLY) As Ordered ONE; +ISOVUE-300 61% 50ML VIAL (Q9967) As Ordered ONE; +LIDOCAINE 2% INJ 100 MG/5 ML SDV (FOR ANES.) As Ordered ONE; +LIDOCAINE 2% MDV 20 ML VIAL As Ordered ONE; +MIDAZOLAM INJ 2 MG/2 ML VIAL (J2250) As Ordered ONE; +PROPOFOL 200 MG/20 ML VIAL As Ordered ONE; +fentaNYL 100 MCG/2 ML INJECTION (J3010) As Ordered ONE
[2019-04-14 12:18] LABS: HEMATOCRIT 33.7 % (42.0-52.0); HEMOGLOBIN 11.4 g/dl (13.5-17.5); MEAN CORPUSCULAR HEMOGLOBIN 32.1 pg (27.0-33.0); MEAN CORPUSCULAR HGB CONC 33.8 g/dl (32.0-36.5); MEAN CORPUSCULAR VOLUME 94.9 fl (80.0-96.0); PLATELET COUNT, AUTOMATED 409 10^3/uL (150-450); RED BLOOD COUNT 3.55 10^6/uL (4.30-6.10); WHITE BLOOD COUNT 10.6 10^3/uL (4.0-10.0)
[2019-04-14 12:43] LABS: BLOOD UREA NITROGEN 12 MG/DL (7-18); CARBON DIOXIDE LEVEL 26 MEQ/L (21-32); CHLORIDE LEVEL 96 MEQ/L (98-107); CREATININE FOR GFR 0.76 MG/DL (0.70-1.30); GLOMERULAR FILTRATION RATE > 60.0 (>42); GLUCOSE, FASTING 77 MG/DL (70-100); POTASSIUM SERUM 4.6 MEQ/L (3.5-5.1); SODIUM LEVEL 129 MEQ/L (136-145)
[2019-04-14] MEDS ORDERED: PROTAMINE SULF INJ 50 MG/5 ML VIAL (J2720) As Ordered ONE (13:17)
[2019-04-14] MEDS ORDERED: ONDANSETRON 4MG/2ML VIAL (J2405) IV PRN (14:15)
[2019-04-14] MEDS ORDERED: LR 1,000 ML IV SCH (14:15)
[2019-04-14] MEDS ORDERED: PERCOCET 5MG/325MG TAB PO PRN (14:15)
[2019-04-14] MEDS ORDERED: fentaNYL 100 MCG/2 ML INJECTION (J3010) IV PRN (14:15)
[2019-04-14 17:20] VITALS: BP 128/62
--- NOTE | 2019-04-30 13:20 | REPIR ---
DATE OF PROCEDURE: 04/14/2019 ATTENDING SURGEON: Dr. Raya Treviño REFINERY TECHNICIAN: Brenda Phillips and Quynh Rice PREOPERATIVE DIAGNOSES: Left foot pain. Left first toe pain. Left first toe nonhealing ulcer. POSTOPERATIVE DIAGNOSES: Left foot pain. Left first toe pain. Left first toe nonhealing ulcer. PROCEDURE: Right common femoral arterial cannulation. Selective left common femoral artery catheter placement with left lower extremity angiogram. Selective left superficial femoral artery catheter placement with left lower extremity angiogram. Selective left popliteal artery catheter placement with left lower extremity angiogram. Selective left anterior tibial artery catheter placement with left lower extremity angiogram. Selective left tibioperoneal trunk catheter placement with angiogram. MYNX closure of the right common femoral arteriotomy. INDICATION: Patient is a 73-year-old male with left toe and foot pain and left toe ulceration who will undergo angiogram and possible angioplasty, stent and/or atherectomy. Risks, benefits and alternative options were discussed with the patient. ANESTHESIA: Local monitored anesthesia care (MAC). ESTIMATED BLOOD LOSS: Minimal. IV FLUIDS: 150 mL. FLUORO TIME: 8.7 minutes. CONTRAST: 17 mL. HEPARIN: None. SPECIMENS: None. IMPLANT: Right common femoral arteriotomy closure with a MYNX closure device. PROCEDURE: Patient was taken to the angiography suite, placed supine on the angiography room table and then prepped and draped in a standard surgical fashion. The right common femoral artery was cannulated, catheter was placed in the left common femoral artery and a left lower extremity angiogram was performed. Catheter was advanced in the superficial femoral artery with angiography performed. Catheter was advanced in the popliteal artery with angiography performed. This showed occlusion of the anterior tibial and tibioperoneal trunk. The left anterior tibial artery was selectively cannulated with attempts at recanalization without success. The left tibioperoneal trunk was selectively cannulated with angiography and attempts at recanalization without success. Catheters and wires were removed. The sheath was removed and a MYNX closure device used to close the arteriotomy in the right common femoral artery with an additional 10 minutes of adjunctive pressure applied for hemostasis. Dressings were then applied. The patient tolerated the procedure well. All instrument, sponge, and needle counts were correct at the end of the case. There were no complications. Dr. Treviño was present for and directed the entire case. The patient was transferred to the holding area and subsequently discharged in stable condition.
== END 2019-04-14 17:05 ==
LOC: EDSTATUS 12:00 → M IRPOV 12:00
PROVIDERS: ATTEND Surgery Vascular Surgery
DX: I70.202 Unspecified atherosclerosis of native arteries of extremities, left leg (principal); M79.672 Pain in left foot; M79.675 Pain in left toe(s); L97.529 Non-pressure chronic ulcer of other part of left foot with unspecified severity; I10 Essential (primary) hypertension; I25.10 Atherosclerotic heart disease of native coronary artery without angina pectoris; E78.5 Hyperlipidemia, unspecified; M06.9 Rheumatoid arthritis, unspecified; C61 Malignant neoplasm of prostate; Z72.0 Tobacco use
CPT/HCPCS: 36247; 75710; 80048; 85027; C1760; C1769; C1887; C1894; G0269; J2250; J2720; J3010; Q9967

== ENCOUNTER 2019-04-19 00:13 | Inpatient (IN) | payer MEDICARE ==
[~2019-04-19] VITALS: Ht 182.9 cm; Wt 84.9 kg
[~2019-04-19 00:13] MED LIST changes: -BUPIVACAINE HCL 0.5% 10 ML VIAL As Ordered ONE; -HEPARIN 1,000 UNITS/ML 10ML VIAL (FOR RADIOLOGY& DIALYSIS ONLY) As Ordered ONE; -ISOVUE-300 61% 50ML VIAL (Q9967) As Ordered ONE; -LIDOCAINE 2% INJ 100 MG/5 ML SDV (FOR ANES.) As Ordered ONE; -LIDOCAINE 2% MDV 20 ML VIAL As Ordered ONE; -MIDAZOLAM INJ 2 MG/2 ML VIAL (J2250) As Ordered ONE; -PROPOFOL 200 MG/20 ML VIAL As Ordered ONE; -fentaNYL 100 MCG/2 ML INJECTION (J3010) As Ordered ONE
[2019-04-19] MEDS ORDERED: METH5INJ SC (00:48)
[2019-04-19] MEDS ORDERED: PLAQ200T4 PO (00:48)
[2019-04-19] MEDS ORDERED: CVS1CAP2 PO (00:48)
[2019-04-19] MEDS ORDERED: PRED5PAK PO (00:48)
[2019-04-19] MEDS ORDERED: VALS1TAB68 PO (00:48)
[2019-04-19] MEDS ORDERED: METH5INJ IJ (00:48)
[2019-04-19] MEDS ORDERED: ISOVUE-370 76% 100ML VIAL (Q9967) As Ordered ONE (01:49)
--- NOTE | 2019-04-19 03:58 | REPVR ---
EXAM: CT Angiography Pelvis With Contrast EXAM DATE/TIME: 04/19/2019 2:12 AM CLINICAL HISTORY: 73 years old, male; Other: Extensive bruising; Prior surgery; Surgery date: <1 month; Surgery type: Right sided catheterization of fem art; Additional info: Recent right sided catheterization of fem art, R/O pseudo an TECHNIQUE: Imaging protocol: Axial computed tomographic angiography images of the pelvis with intravenous contrast material, including non-contrast images if performed. Coronal and sagittal reformatted images were created and reviewed. 3D rendering: MIP reconstructed images were created and reviewed. Radiation optimization: All CT scans at this facility use at least one of these dose optimization techniques: automated exposure control; mA and/or kV adjustment per patient size (includes targeted exams where dose is matched to clinical indication); or iterative reconstruction. Contrast material: ISOVUE 370;Contrast volume: 100 ml;Contrast route: IV; COMPARISON: CT ABD/PEL W/IV CONTRAST ONLY 03/14/2018 8:42 PM FINDINGS: VASCULATURE: Aorta: Visualized aorta is unremarkable. Renal arteries: Suggestion of mild stenosis of the proximal right renal artery. Right iliac arteries: No occlusion or significant stenosis. Right femoral/popliteal arteries: There is anterior extension of contrast from the right common femoral artery into an area of confluence consistent with pseudoaneurysm. Active bleeding is not excluded. Left iliac arteries: No occlusion or significant stenosis. PELVIS: Stomach and bowel: Visualized small bowel and colon are unremarkable. Appendix: A normal appendix is seen. Bladder: Normal. No mass. Reproductive: Unremarkable as visualized. Intraperitoneal space: Unremarkable. No free air. No significant fluid collection. Bones/joints: Unremarkable. No acute fracture. No dislocation. Soft tissues: Right inguinal subcutaneous infiltration which extends across midline in the mons pubis. There are some localized areas of confluence in the right inguinal region. Lymph nodes: Unremarkable. No enlarged lymph nodes. IMPRESSION: 1. Subcutaneous infiltration centered in the right inguinal region with some focal areas of confluence which may reflect areas of subcutaneous hematoma. 2. Anterior extension of vascular contrast from the right common femoral artery into one of the small areas of confluence consistent with a pseudoaneurysm. Active bleeding is not excluded. Electronically signed by: Chaz Garcia On 04/19/2019 03:58:12 AM
[2019-04-19] MEDS ORDERED: BORAGE OIL PO (05:36)
[2019-04-19] MEDS ORDERED: VITA500T PO (05:36)
[2019-04-19] MEDS ORDERED: OPTI400C PO (05:36)
[2019-04-19] MEDS ORDERED: CVS1500T PO (05:36)
[2019-04-19] MEDS ORDERED: COQ-100C5 PO (05:36)
[2019-04-19] MEDS ORDERED: CALC1TAB9 PO (05:36)
[2019-04-19] MEDS ORDERED: MIRA3350 PO (05:36)
[2019-04-19] MEDS ORDERED: PRED10TA2 PO (05:36)
[2019-04-19] MEDS ORDERED: D5W/0.9% SODIUM CHLORIDE 1,000 ML IV SCH (05:45)
--- NOTE | 2019-04-19 05:58 | HPEPDOC ---
General Date of Admission 04/19/19 Date of Service: Apr 19, 2019 Chief Complaint The patient is a 73-year-old male admitted with a reason for visit of General Medical Complaint. History of Present Illness 73 year old male with PMH of CAD s/p stenting, PAD with blockage in the left lower leg, Metastatic prostate cancer s/p surgery and RT, Rheumatoid arthritis, hypertension, hyperlipidemia, Glaucoma, presented to the ED with complaints of swelling , bruising of the right groin which he noticed beginning yesterday afternoon and spread rapidly to the lower abdomen and laterally to the right buttock with flucualant swelling of the area. He had a lower extremity a ngiography x 2 done over a period of 3 weeks both were accessed through the right femoral artery. The second one was done of 04/14/19. In ED he had CT angiography of pelvis which shows 1. Subcutaneous infiltration centered in the right inguinal region with some focal areas of confluence which may reflect areas of subcutaneous hematoma. 2. Anterior extension of vascular contrast from the right common femoral artery into one of the small areas of confluence consistent with a pseudoaneurysm. Active bleeding is not excluded. 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 Vascular was contacted and his is planned for a procedure later in the day for repair of the aneurysm. He denied any pain or discomfort in the area. Home Medications Scheduled Ascorbic Acid (Vitamin C) 500 Mg Tablet, 1,000 MG PO DAILY, (Reported) Aspirin (Aspirin EC) 81 Mg Tab, 81 MG PO DAILY, (Reported) Atorvastatin Calcium (Lipitor) 10 Mg Tab, 10 MG PO QHS, (Reported) Calcium Citrate (Calcitrate) 200 Mg Tablet, 315 MG PO BID, (Reported) Cholecalciferol (Vitamin D3) (Vitamin D3) 2,000 Unit Cap, 2,000 UNIT PO DAILY, (Reported) Chondroitin Sulfate A Sodium (Optiflex-C) 400 Mg Capsule, 1,200 MG PO BID, (Reported) Flaxseed Oil (Flaxseed Oil) 1,000 Mg Cap, 540 MG PO BID, (Reported) Folic Acid (Folic Acid) 1 Mg Tab, 2 MG PO DAILY, (Reported) Glucosamine HCl (Glucosamine HCl) 1,500 Mg Tablet, 1,500 MG PO BID, (Reported) Hydrochlorothiazide (Hydrochlorothiazide) 25 Mg Tab, 25 MG PO DAILY, (Reported) Hydroxychloroquine Sulfate (Plaquenil) 200 Mg Tablet, 200 MG PO BID, (Reported) Lactase (Lactaid) 3,000 Unit Tab, 3,000 UNIT PO PRN, (Reported) [facility] DAIRY Lactobacillus Combo No.10 (Probiotic) 1 Each Capsule, 1 CAP PO DAILY, (Reported) Methotrexate Sodium (Methotrexate) 25 Mg/1 Ml Vial, 0.7 ML SC QWEEK, (Reported) TUESDAYS Metoprolol Succinate (Metoprolol Succinate) 25 Mg Tab, 25 MG PO QPM, (Reported) Multivitamins (Thera M Plus Tablet) 1 Tab Tab, 1 TAB PO DAILY, (Reported) [place]-3 Fatty Acids/Fish Oil (Fish Oil 1,200 mg Softgel) 1 Cap Cap, 1 CAP PO BID, (Reported) Pantoprazole Sodium (Protonix) 40 Mg Tab, 40 MG PO DAILY, (Reported) Prednisone (Prednisone) 10 Mg Tablet, 5 MG PO DAILY, (Reported) Ubidecarenone (Coq-10) 100 Mg Capsule, 100 MG PO DAILY, (Reported) Valsartan (Valsartan) 320 Mg Tablet, 320 MG PO QPM, (Reported) [Borage Oil] 1,000 MG CAP, 1,000 MG PO BID, (Reported) Scheduled PRN Acetaminophen (Pain Reliever) 650 Mg Tab, 1,300 MG PO TID PRN for PAIN, (Reported) Nitroglycerin (Nitrostat) 0.4 Mg Subl, 0.4 MG SL NITRO PRN for CHEST PAIN, (Reported) Polyethylene Glycol 3350 (Miralax) 119 Gm Powder, 17 GM PO DAILY PRN for CONSTIPATION, (Reported) Allergies Coded Allergies: No Known Allergies (Unverified , 05/16/18) Past Medical History Medical History CAD s/p stenting, Metastatic prostate cancer s/p surgery and RT, Rheumatoid arthritis, hypertension, hyperlipidemia, Glaucoma Surgical History STENT PLACED IN CIRCUMFLEX ARTERY 05/29/2017 CATARACT RIGHT EYE 2007 WRIST RIGHT SX DUE TO INJURY 1986 TONSILLECTOMY 1950S PROSTATECTOMY - RALP W/ BPLND 01/08/2018 LAP PERITONEAL DRAINAGE 04/02/2018 LEFT CATARACT SURGERY 05/2018 Family History Significant Family History: Cancer FATHER: , PROSTATE CA MOTHER: SIBLINGS: BROTHER: PROSTATE CA AND HAD PROTATECTOMY. 1 BROTHER(S) , 1 SISTER(S) . 1 SON(S) , 1 DAUGHTER(S) - HEALTHY. MOTHER- RA SISTER- RA. Social History * Smoker: former Smoker Alcohol: Denies Drugs: denies A-FIB/CHADSVASC A-FIB History Current/History of A-Fib/PAF?: No Review of Systems Constitutional: Denies: Chills, Fever, Night Sweats Eyes: Denies: Pain, Vision change ENT: Denies: Head Aches, Ear Pain, Dysphagia Skin: Reports: Bruising; Denies: Rash, Lesions, Breakdown Pulmonary: Denies: Dyspnea, Cough Cardiovascular: Denies: Chest Pain, Palpitations, Orthopnea, Paroxysmal Noc. Dyspnea, Lt Headedness Gastrointestinal: Reports: Diarrhea (from RT), Constipation (From RT); Denies: Nausea, Vomiting, Abdominal Pain Genitourinary: Reports: Frequency (from RT) Hematologic: Reports: Bruising (in the right groin) Musculoskeletal: Denies: Neck Pain, Back Pain, Joint Pain, Muscle Pain, Spasms Neurological: Denies: Weakness, Numbness, Change in speech, Confusion Physical Examination General Exam: Positive: Alert, Cooperative, No Acute Distress Eye Exam: Positive: PERRLA, Conjunctiva & lids normal, EOMI; Negative: Sclera icteric ENT Exam: Positive: Atraumatic, Mucous membr. moist/pink, Pharynx Normal Neck Exam: Positive: Supple; Negative: JVD, thyromegaly Chest Exam: Positive: Clear to auscultation, Normal air movement Heart Exam: Positive: Rate Normal, Regular Rhythm, Normal S1, Normal S2; Negative: Murmurs, Rubs Telemetry: Positive: No significant arrhythmia Abdomen Exam: Positive: Normal bowel sounds, Soft; Negative: Tenderness, Hepatospenomegaly Extremity Exam: Negative: Clubbing, Cyanosis, Edema Skin Exam: Positive: Other skin issue (huge hematoma in paige right groin involving the lower abdomen an dlateral thigh.) Vital Signs Vital Signs Date Time Temp Pulse Resp B/P (MAP) Pulse Ox O2 Delivery O2 Flow Rate FiO2 04/19/19 04:43 68 18 98 Room Air 04/19/19 04:03 119/59 (79) 04/19/19 00:14 98.6 Laboratory Data Labs 24H Laboratory Tests 2 04/19/19 01:50: POC Glucose (Misc Panel) 92, POC Sodium (Misc Panel) 129L, POC Potassium (Misc Panel) 3.8, POC Chloride (Misc Panel) 94L, POC Total CO2 (Misc Panel) 26.0, POC Blood Urea Nitrogen (Misc Panel 10, POC Ionized Calcium (Misc Panel) 5.1, POC Creatinine (Misc Panel) 0.8, POC Hematocrit (Misc Panel) 30.0L Assessment/Plan 73 year old male with PMH of CAD s/p stenting, PAD with blockage in the left lower leg, Metastatic prostate cancer s/p surgery and RT, Rheumatoid arthritis, hypertension, hyperlipidemia, Glaucoma, presented to the ED with complaints of swelling , bruising of the right groin which he noticed beginning yesterday afternoon and spread rapidly to the lower abdomen and laterally to the right buttock with flucualant swelling of the area. He had a lower extremity angiography x 2 done over a period of 3 weeks both were accessed through the right femoral artery. The second one was done of 04/14/19. In ED he had CT angiography of pelvis which shows 1. Subcutaneous infiltration centered in the right inguinal region with some focal areas of confluence which may reflect areas of subcutaneous hematoma. 2. Anterior extension of vascular contrast from the right common femoral artery into one of the small areas of confluence consistent with a pseudoaneurysm. Active bleeding is not excluded. 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 Vascular was contacted and his is planned for a procedure later in the day for repair of the aneurysm. right femoral pseudoaneurysm s/p angiography planned for OR today NPO IVF. Vascular CAD s/p stenting, continue ASA will continue statin and betablocker Metastatic prostate cancer s/p surgery and RT, just finished RT about 2 weeks ago Rheumatoid arthritis continue methotrexate, prednisone and HCQS Chronic hyponatremia could be related to HCTZ will hold hypertension continue valsartan but hold HCTZ hyperlipidemia continue statin Glaucoma continue eye drops. Plan / VTE VTE Prophylaxis Ordered?: Yes SHERRY PEDERSON MD Apr 19, 2019 05:17
[2019-04-19 06:20] VITALS: BP 132/66
[2019-04-19 07:34] VITALS: BP 160/74
[2019-04-19] MEDS ORDERED: ASPIRIN 81 MG ENTERIC TAB PO SCH (09:00)
[2019-04-19] MEDS ORDERED: HYDROXYCHLOROQUINE 200 MG TAB PO SCH (09:00)
[2019-04-19] MEDS ORDERED: predniSONE 10 MG TAB PO SCH (09:00)
[2019-04-19] MEDS ORDERED: PANTOPRAZOLE 40MG TAB (PROTONIX) PO SCH (09:00)
[2019-04-19 09:01] LABS: BASO # 0.1 10^3/uL (0.0-0.2); BASO % 0.7 % (0.0-1.0); EOS # 0.2 10^3/uL (0.0-0.50); EOS % 1.6 % (0.0-3.0); HEMATOCRIT 28.6 % (42.0-52.0); HEMOGLOBIN 9.8 g/dl (13.5-17.5); LYMPH # 0.7 10^3/uL (1.5-4.5); LYMPH % 6.6 % (24.0-44.0); MEAN CORPUSCULAR HEMOGLOBIN 32.6 pg (27.0-33.0); MEAN CORPUSCULAR HGB CONC 34.3 g/dl (32.0-36.5); MONO # 0.9 10^3/uL (0.0-0.8); MONO % 8.4 % (0.0-5.0); NEUTROPHILS % 77.9 % (36.0-66.0); PLATELET COUNT, AUTOMATED 316 10^3/uL (150-450); RED BLOOD COUNT 3.01 10^6/uL (4.30-6.10); WHITE BLOOD COUNT 10.3 10^3/uL (4.0-10.0)
[2019-04-19 09:26] LABS: BLOOD UREA NITROGEN 9 MG/DL (7-18); CALCIUM LEVEL 9.2 MG/DL (8.8-10.2); CARBON DIOXIDE LEVEL 25 MEQ/L (21-32); CHLORIDE LEVEL 100 MEQ/L (98-107); CREATININE FOR GFR 0.78 MG/DL (0.70-1.30); GLOMERULAR FILTRATION RATE > 60.0 (>42); GLUCOSE, FASTING 88 MG/DL (70-100); MAGNESIUM LEVEL 2.3 MG/DL (1.8-2.4); POTASSIUM SERUM 4.5 MEQ/L (3.5-5.1); SODIUM LEVEL 134 MEQ/L (136-145)
--- NOTE | 2019-04-19 10:12 | IPNPDOC ---
Text Note Date of Service The patient was seen on 04/19/19. NOTE Subjective: Patient is a 73-year-old male with a PMHx of HTN, CAD s/p stent, PAD w/ blockage in LLE, DLP, Metastatic Prostate CA s/p Surgery / Radiation, Rheumatoid Arthritis, Glaucoma who presented to the ER with complaints of right groin swelling, redness/bruising that started 1 day prior. Patient reported that he recently received an angiogram with Dr. Treviño for his left lower extremity peripheral by surgical evaluation on April 14. Imaging via CT angiogram completed in the emergency room was consistent with a right femoral pseudoaneurysm. Patient was admitted to hospitalist service for further evaluation/treatment, and vascular surgery was called on consultation. Patient was seen and examined at the bedside. Currently, patient reports some tenderness of his right groin. He reports that area of demarcation has not changed. Overall redness has become darker. Denies chest pain, shortness of breath or palpitations. Patient denies nausea, vomiting, abdominal pain, constipation, diarrhea, or urinary discomfort. Objective: Vitals (See below) General: Lying in bed, no acute distress, comfortable, AAOx3 HEENT: NC, AT CVS: RRR, +S1S2 Lungs: Fair air entry b/l, -w/r/r Abdomen: Soft, ND, NT Inguina: R inguinal area with area of redness / tenderness, no significant warmth / no drainage Extremities: - Edema, - Calf tenderness Assessment and plan: Right groin redness / tenderness - likely 2/2 right femoral pseudoaneurysm - CTA Pelvis 04/19: 1. Subcutaneous infiltration centered in the right inguinal region with some focal areas of confluence which may reflect areas of subcutaneous hematoma. 2. Anterior extension of vascular contrast from the right common femoral artery into one of the small areas of confluence consistent with a pseudoaneurysm. Active bleeding is not excluded. - s/p angiography recently on 04/14/[address] Zamora - Will be going to OR today - c/w NPO and IV fluids - Vascular surgery on consultation CAD s/p stenting - c/w ASA, Atorvastatin, Metoprolol Metastatic Prostate CA - s/p surgery and radiation - Completed radiation therapy 2 weeks ago RA - No complaints of joint pain at this time - Hold Hydroxychloroquine / Methotrexate; will resume within 24 hours - c/w Prednisone Hyponatremia (Mild) - Sodium appears to be improving - Trending closer toward normal HTN - BP moderately elevated - HCTZ on hold - c/w Valsartan - Will re-evaluate throughout the day DLP - c/w Atorvastatin Glaucoma - c/w eye drops GI prophylaxis - c/w Protonix DVT prophylaxis - c/w [place]/Sequentials VS,Fishbone, I+O VS, Fishbone, I+O Laboratory Tests 04/19/19 08:41 Red Blood Count 3.01 L, Mean Corpuscular Volume 95.0, Mean Corpuscular Hemoglobin 32.6, Mean Corpuscular Hemoglobin Concent 34.3, Red Cell Distribution Width 14.3, Neutrophils (%) (Auto) 77.9 H, Lymphocytes (%) (Auto) 6.6 L, Monocytes (%) (Auto) 8.4 H, Eosinophils (%) (Auto) 1.6, Basophils (%) (Auto) 0.7, Neutrophils # (Auto) 8.0 H, Lymphocytes # (Auto) 0.7 L, Monocytes # (Auto) 0.9 H, Eosinophils # (Auto) 0.2, Basophils # (Auto) 0.1, Calcium Level 9.2 Vital Signs Date Time Temp Pulse Resp B/P (MAP) Pulse Ox O2 Delivery O2 Flow Rate FiO2 04/19/19 07:34 97.4 58 18 160/74 (102) 98 04/19/19 06:01 Room Air BARTOLO WEIR MD Apr 19, 2019 10:12
[2019-04-19] MEDS ORDERED: MIDAZOLAM INJ 2 MG/2 ML VIAL (J2250) As Ordered ONE (11:10)
[2019-04-19] MEDS ORDERED: LIDOCAINE 2% INJ 100 MG/5 ML SDV (FOR ANES.) As Ordered ONE (11:10)
[2019-04-19] MEDS ORDERED: fentaNYL 100 MCG/2 ML INJECTION (J3010) As Ordered ONE (11:10)
[2019-04-19] MEDS ORDERED: propofoL 200 MG/20 ML VIAL As Ordered ONE (11:10)
[2019-04-19] MEDS ORDERED: LIDOCAINE 1% SDV INJ 30 ML VIAL As Ordered ONE (11:18)
[2019-04-19] MEDS ORDERED: BUPIVACAINE HCL 0.5% 30 ML VIAL As Ordered ONE (11:18)
[2019-04-19] MEDS ORDERED: THROMBIN SOLN 5,000 UNITS VIAL As Ordered ONE (11:24)
[2019-04-19] MEDS ORDERED: METOCLOPRAMIDE INJ 10MG/2ML VIAL (J2765) IV PRN (12:15)
[2019-04-19] MEDS ORDERED: fentaNYL 100 MCG/2 ML INJECTION (J3010) IV PRN (12:15)
[2019-04-19] MEDS ORDERED: LR 1,000 ML IV SCH (12:15)
[2019-04-19] MEDS ORDERED: PERCOCET 5MG/325MG TAB PO PRN (12:15)
[2019-04-19] MEDS ORDERED: ONDANSETRON 4MG/2ML VIAL (J2405) IV PRN (12:15)
[2019-04-19 12:36] VITALS: BP 135/69
[2019-04-19 15:21] VITALS: BP 158/69
--- NOTE | 2019-04-19 18:23 | DS.PDOC ---
Discharge Summary General Date of Admission Apr 19, 2019 at 05:33 Date of Discharge 04/19/2019 Discharge Summary PROCEDURES PERFORMED DURING STAY: Right femoral pseudoaneurysm repair with Dr. Treviño 04/19/2019 ADMITTING DIAGNOSES / DISCHARGE DIAGNOSES: Right groin redness / tenderness - likely 2/2 right femoral pseudoaneurysm CAD s/p stenting Metastatic Prostate CA RA Hyponatremia (Mild) HTN DLP Glaucoma GI prophylaxis DVT prophylaxis COMPLICATIONS/CHIEF COMPLAINT: Right groin pain HISTORY OF PRESENT ILLNESS: Patient is a 73-year-old male with a PMHx of HTN, CAD s/p stent, PAD w/ blockage in LLE, DLP, Metastatic Prostate CA s/p Surgery / Radiation, Rheumatoid Arthritis, Glaucoma who presented to the ER with complaints of right groin swelling, redness/bruising that started 1 day prior. Patient reported that he recently received an angiogram with Dr. Treviño for his left lower extremity peripheral by surgical evaluation on April 14. Imaging via CT angiogram completed in the emergency room was consistent with a right femoral pseudoaneurysm. Patient was admitted to hospitalist service for further evaluation/treatment, and vascular surgery was called on consultation. HOSPITAL COURSE: Right groin redness / tenderness - likely 2/2 right femoral pseudoaneurysm - CTA Pelvis 04/19: 1. Subcutaneous infiltration centered in the right inguinal region with some focal areas of confluence which may reflect areas of subcutaneous hematoma. 2. Anterior extension of vascular contrast from the right common femoral artery into one of the small areas of confluence consistent with a pseudoaneurysm. Active bleeding is not excluded. - s/p angiography recently on 04/14/[address] Zamora - Patient has received repair of his right femoral pseudoaneurysm with Dr. Treviño on 04/19/2019 - Subsequent ultrasound was acquired post procedure to ensure adequate repair - Vascular surgery on consultation - Patient has been advised to follow up with his primary care provider as well as Dr. Treviño within the next 7 days CAD s/p stenting - c/w ASA, Atorvastatin, Metoprolol Metastatic Prostate CA - s/p surgery and radiation - Completed radiation therapy 2 weeks ago RA - No complaints of joint pain at this time - Hold Hydroxychloroquine / Methotrexate; will resume within 24 hours - c/w Prednisone Hyponatremia (Mild) - Sodium appears to be improving - Trending closer toward normal HTN - BP moderately elevated - HCTZ on hold - c/w Valsartan - Will re-evaluate throughout the day DLP - c/w Atorvastatin Glaucoma - c/w eye drops GI prophylaxis - c/w Protonix DVT prophylaxis - c/w [place]/Sequentials DISCHARGE MEDICATIONS: Please see below. ALLERGIES: Please see below. PHYSICAL EXAMINATION ON DISCHARGE: Vitals (See below) General: Lying in bed, no acute distress, comfortable, AAOx3 HEENT: NC, AT CVS: +S1S2 Lungs: Fair air entry b/l, -w/r/r Abdomen: Soft, ND, NT Inguina: R inguinal area with area of redness / tenderness, no significant warmth / no drainage Extremities: - Edema, - Calf tenderness LABORATORY DATA: Please see below. ACTIVITY: [As tolerated]. DISCHARGE PLAN: Follow-up with Dr. Martinez and Dr. Treviño within 7 days Remain compliant with treatment plan and medications Return to the ER if you experience any problems DISPOSITION: Home DISCHARGE CONDITION: [Stable]. TIME SPENT ON DISCHARGE: 37 minutes Vital Signs/I&Os Vital Signs Date Time Temp Pulse Resp B/P (MAP) Pulse Ox O2 Delivery O2 Flow Rate FiO2 04/19/19 15:21 97.6 54 18 158/69 (98) 99 04/19/19 06:01 Room Air Laboratory Data Labs 24H Laboratory Tests 2 04/19/19 01:50: POC Glucose (Misc Panel) 92, POC Sodium (Misc Panel) 129L, POC Potassium (Misc Panel) 3.8, POC Chloride (Misc Panel) 94L, POC Total CO2 (Misc Panel) 26.0, POC Blood Urea Nitrogen (Misc Panel 10, POC Ionized Calcium (Misc Panel) 5.1, POC Creatinine (Misc Panel) 0.8, POC Hematocrit (Misc Panel) 30.0L 04/19/19 08:41: Immature Granulocyte % (Auto) 4.8H, White Blood Count 10.3H, Red Blood Count 3.01L, Hemoglobin 9.8L, Hematocrit 28.6L, Mean Corpuscular Volume 95.0, Mean Corpuscular Hemoglobin 32.6, Mean Corpuscular Hemoglobin Concent 34.3, Red Cell Distribution Width 14.3, Platelet Count 316, Neutrophils (%) (Auto) 77.9H, Lymphocytes (%) (Auto) 6.6L, Monocytes (%) (Auto) 8.4H, Eosinophils (%) (Auto) 1.6, Basophils (%) (Auto) 0.7, Neutrophils # (Auto) 8.0H, Lymphocytes # (Auto) 0.7L, Monocytes # (Auto) 0.9H, Eosinophils # (Auto) 0.2, Basophils # (Auto) 0.1, Nucleated Red Blood Cells % (auto) 0.0, Anion Gap 9, Glomerular Filtration Rate > 60.0, Blood Urea Nitrogen 9, Creatinine 0.78, Sodium Level 134L, Potassium Level 4.5, Chloride Level 100, Carbon Dioxide Level 25, Calcium Level 9.2, Magnesium Level 2.3 CBC/BMP Laboratory Tests 04/19/19 08:41 Red Blood Count 3.01 L, Mean Corpuscular Volume 95.0, Mean Corpuscular Hemoglobin 32.6, Mean Corpuscular Hemoglobin Concent 34.3, Red Cell Distribution Width 14.3, Neutrophils (%) (Auto) 77.9 H, Lymphocytes (%) (Auto) 6.6 L, Monocytes (%) (Auto) 8.4 H, Eosinophils (%) (Auto) 1.6, Basophils (%) (Auto) 0.7, Neutrophils # (Auto) 8.0 H, Lymphocytes # (Auto) 0.7 L, Monocytes # (Auto) 0.9 H, Eosinophils # (Auto) 0.2, Basophils # (Auto) 0.1, Calcium Level 9.2 Discharge Medications Scheduled Ascorbic Acid (Vitamin C) 500 Mg Tablet, 1,000 MG PO DAILY, (Reported) Aspirin (Aspirin EC) 81 Mg Tab, 81 MG PO DAILY, (Reported) Atorvastatin Calcium (Lipitor) 10 Mg Tab, 10 MG PO QHS, (Reported) Calcium Citrate (Calcitrate) 200 Mg Tablet, 315 MG PO BID, (Reported) Cholecalciferol (Vitamin D3) (Vitamin D3) 2,000 Unit Cap, 2,000 UNIT PO DAILY, (Reported) Chondroitin Sulfate A Sodium (Optiflex-C) 400 Mg Capsule, 1,200 MG PO BID, (Reported) Flaxseed Oil (Flaxseed Oil) 1,000 Mg Cap, 540 MG PO BID, (Reported) Folic Acid (Folic Acid) 1 Mg Tab, 2 MG PO DAILY, (Reported) Glucosamine HCl (Glucosamine HCl) 1,500 Mg Tablet, 1,500 MG PO BID, (Reported) Hydrochlorothiazide (Hydrochlorothiazide) 25 Mg Tab, 25 MG PO DAILY, (Reported) Hydroxychloroquine Sulfate (Plaquenil) 200 Mg Tablet, 200 MG PO BID, (Reported) Lactase (Lactaid) 3,000 Unit Tab, 3,000 UNIT PO PRN, (Reported) [facility] DAIRY Lactobacillus Combo No.10 (Probiotic) 1 Each Capsule, 1 CAP PO DAILY, (Reported) Methotrexate Sodium (Methotrexate) 25 Mg/1 Ml Vial, 0.7 ML SC QWEEK, (Reported) TUESDAYS Metoprolol Succinate (Metoprolol Succinate) 25 Mg Tab, 25 MG PO QPM, (Reported) Multivitamins (Thera M Plus Tablet) 1 Tab Tab, 1 TAB PO DAILY, (Reported) [place]-3 Fatty Acids/Fish Oil (Fish Oil 1,200 mg Softgel) 1 Cap Cap, 1 CAP PO BID, (Reported) Pantoprazole Sodium (Protonix) 40 Mg Tab, 40 MG PO DAILY, (Reported) Prednisone (Prednisone) 10 Mg Tablet, 5 MG PO DAILY, (Reported) Ubidecarenone (Coq-10) 100 Mg Capsule, 100 MG PO DAILY, (Reported) Valsartan (Valsartan) 320 Mg Tablet, 320 MG PO QPM, (Reported) [Borage Oil] 1,000 MG CAP, 1,000 MG PO BID, (Reported) Scheduled PRN Acetaminophen (Pain Reliever) 650 Mg Tab, 1,300 MG PO TID PRN for PAIN, (Reported) Nitroglycerin (Nitrostat) 0.4 Mg Subl, 0.4 MG SL NITRO PRN for CHEST PAIN, (Reported) Polyethylene Glycol 3350 (Miralax) 119 Gm Powder, 17 GM PO DAILY PRN for CONSTIPATION, (Reported) Allergies Coded Allergies: No Known Allergies (Unverified , 05/16/18) BARTOLO WEIR MD Apr 19, 2019 18:23
--- NOTE | 2019-04-19 18:50 | REPVR ---
EXAM: US Right Non-Vascular Joint or Other Extremity Structure, Limited Lower Extremity EXAM DATE/TIME: 04/19/2019 5:31 PM CLINICAL HISTORY: 73 years old, male; Injury or trauma; Injury history: Procedure; Follow-up exam; Swelling (edema); Upper leg; Right; Prior surgery; Surgery date: Post-operative (0-2 days); Additional info: Right psa S/P thrombin injection TECHNIQUE: Imaging protocol: Right US Non-Vascular Joint or Other Extremity Structure. Limited exam of the lower extremity. COMPARISON: No relevant prior studies available. FINDINGS: Soft tissues: At the right groin, an ill-defined hypoechoic area, 3.3 x 1.4 x 1.9 cm, is consistent with a hematoma (images 2 and 9). Its volume is ~5 mL. On the color Doppler images, a central area of the blood flow is consistent with a pseudoaneurysm (image 13). An ill-defined more superficial hematoma is 3.9 x 2.6 x 2.3 cm (images 18 and 22). Its volume is ~12 mL. Vasculature: The right common femoral and superficial femoral arteries are patent. IMPRESSION: 1. At the right groin, an ill-defined hypoechoic area, 3.3 x 1.4 x 1.9 cm, is consistent with a hematoma (images 2 and 9). Its volume is approximately ~5 mL. On the color Doppler images, a central area of the blood flow is consistent with a pseudoaneurysm (image 13). 2. An ill-defined more superficial hematoma is 3.9 x 2.6 x 2.3 cm (images 18 and 22). Its volume is ~12 mL. Electronically signed by: Devante De Leon On 04/19/2019 18:49:36 PM
[2019-04-19] MEDS ORDERED: VALSARTAN 80 MG TAB (DIOVAN) PO SCH (21:00)
[2019-04-19] MEDS ORDERED: ATORVASTATIN 10 MG TAB PO SCH (21:00)
[2019-04-19] MEDS ORDERED: METOPROLOL SUCC *XL* 25MG TAB (TopROL *XL*) PO SCH (21:00)
--- NOTE | 2019-04-30 13:21 | RO ---
DATE OF PROCEDURE: 04/19/2019 ATTENDING SURGEON: Dr. Bhavya Treviño GRANULATOR MACHINE OPERATOR: None. PREOPERATIVE DIAGNOSIS: Right femoral pseudoaneurysm. POSTOPERATIVE DIAGNOSIS: Right femoral pseudoaneurysm. PROCEDURE: Ultrasound-guided right femoral pseudoaneurysm thrombin injection. INDICATION: The patient is a 73-year-old male who underwent an angiogram of the left lower extremity through a right femoral approach and then developed swelling and pain in the right groin and underwent CT angiogram which showed right femoral pseudoaneurysm. The patient will undergo ultrasound-guided right femoral pseudoaneurysm injection. ANESTHESIA: Local MAC. ESTIMATED BLOOD LOSS: Minimal. IV FLUIDS: None. COMPLICATIONS: DRAINS: None. SPECIMENS: None. IMPLANTS: DESCRIPTION OF PROCEDURE: The patient was taken to the operating room, placed supine on the operating room table and then prepped and draped in a standard surgical fashion. Ultrasound was used to evaluate the right femoral pseudoaneurysm which was identified and a spinal needle was inserted into the pseudoaneurysm and 1 mL of thrombus injected with no further flow noted in the pseudoaneurysm. The needle was removed and manual compression applied for hemostasis. Dressings were then applied. The patient tolerated the procedure well. All instrument, sponge and needle counts were correct at the end of case. There were no complications. Dr. Treviño was present for and directed the entire case. The patient was transferred to the recovery room and to the floor in stable condition.
== END 2019-04-19 19:41 | disposition home or self-care (01) | DRG 300 ==
LOC: M ED 00:13 → M ED INP 05:33 → M PCU 06:18
PROVIDERS: ADMIT Internal Medicine Nephrology; ATTEND Internal Medicine
PROC: 3E053GC Introduction of Other Therapeutic Substance into Peripheral Artery, Percutaneous Approach (ICD-10-PCS; principal; 2019-04-19 11:04)
DX: T81.718A Complication of other artery following a procedure, not elsewhere classified, initial encounter (principal); I97.89 Other postprocedural complications and disorders of the circulatory system, not elsewhere classified; L76.32 Postprocedural hematoma of skin and subcutaneous tissue following other procedure; E87.1 Hypo-osmolality and hyponatremia; I72.4 Aneurysm of artery of lower extremity; I25.10 Atherosclerotic heart disease of native coronary artery without angina pectoris; Z95.2 Presence of prosthetic heart valve; I10 Essential (primary) hypertension; M06.9 Rheumatoid arthritis, unspecified; H40.9 Unspecified glaucoma; Z79.82 Long term (current) use of aspirin; Z79.899 Other long term (current) drug therapy; E78.5 Hyperlipidemia, unspecified; Z87.891 Personal history of nicotine dependence; Y84.8 Other medical procedures as the cause of abnormal reaction of the patient, or of later complication, without mention of misadventure at the time of the procedure

== ENCOUNTER 2019-04-25 17:49 | Inpatient (IN) | payer MEDICARE ==
[~2019-04-25] VITALS: Ht 182.9 cm; Wt 79.9 kg
[~2019-04-25 17:49] MED LIST changes: +BORAGE OIL PO; +CALC1TAB9 PO; +COQ-100C5 PO; +CVS1500T PO; +CVS1CAP2 PO; +METH5INJ IJ; +MIRA3350 PO; +OPTI400C PO; +PLAQ200T4 PO; +PRED10TA2 PO; +PRED5PAK PO; +VALS1TAB68 PO; +VITA500T PO
[2019-04-25] MEDS ORDERED: ACETAMINOPHEN 325 MG TAB PO ONE (18:15)
[2019-04-25] MEDS ORDERED: NS 1,000 ML IV ONE (18:15)
[2019-04-25 18:42] LABS: BASO % 0.1 % (0.0-1.0); HEMATOCRIT 28.7 % (42.0-52.0); HEMOGLOBIN 9.8 g/dl (13.5-17.5); LYMPH # 0.4 10^3/uL (1.5-4.5); MEAN CORPUSCULAR HEMOGLOBIN 31.9 pg (27.0-33.0); MEAN CORPUSCULAR HGB CONC 34.1 g/dl (32.0-36.5); MEAN CORPUSCULAR VOLUME 93.5 fl (80.0-96.0); MONO % 6.9 % (0.0-5.0); NEUTROPHILS # 12.9 10^3/uL (1.8-7.7); NEUTROPHILS % 89.2 % (36.0-66.0); PLATELET COUNT, AUTOMATED 328 10^3/uL (150-450); RED BLOOD COUNT 3.07 10^6/uL (4.30-6.10); WHITE BLOOD COUNT 14.4 10^3/uL (4.0-10.0)
[2019-04-25 18:45] LABS: VENOUS BASE EXCESS -1.4 (-2.0-2.0); VENOUS HCO3 22.5 MEQ/L (23.0-27.0); VENOUS O2 SATURATION 90.6 % (60.0-80.0); VENOUS PARTIAL PRESSURE CO2 34.7 mmHg (38.0-50.0); VENOUS PARTIAL PRESSURE O2 57.9 mmHg (30.0-50.0); VENOUS PH 7.429 UNITS (7.330-7.430); VENOUS STANDARD HCO3 23.2 MEQ/L; VENOUS TOTAL CO2 23.5 MEQ/L (24.0-28.0)
[2019-04-25 18:47] LABS: APPEARANCE, URINE CLEAR (CLEAR); BACTERIA, URINE AUTO NEGATIVE (NEGATIVE); BILIRUBIN, URINE AUTO NEGATIVE (NEGATIVE); BLOOD, URINE BLOOD 1+ (NEGATIVE); COLOR, URINE YELLOW (YELLOW); GLUCOSE, URINE (UA) AUTO NEGATIVE (NEGATIVE); KETONE, URINE AUTO TRACE mg/dL (NEGATIVE); LEUKOCYTE ESTERASE, URINE AUTO NEGATIVE (NEGATIVE); MUCUS, URINE SMALL (NEGATIVE); NITRITE, URINE AUTO NEGATIVE (NEGATIVE); PROTEIN, URINE AUTO 1+ mg/dL (NEGATIVE); RBC, URINE AUTO 9 /HPF (0-3); SPECIFIC GRAVITY URINE AUTO 1.018 (1.002-1.035); SQUAMOUS EPITHELIAL CELL UR AU 0 /HPF (0-6); UROBILINOGEN, URINE AUTO 0.2 mg/dL (0.0-2.0); WBC, URINE AUTO 2 /HPF (0-3)
[2019-04-25 18:53] LABS: INR 1.1; PROTHROMBIN TIME 13.9 SECONDS (11.8-14.0)
[2019-04-25 18:54] LABS: PARTIAL THROMBOPLASTIN TIME 23.9 SECONDS (25.0-38.4)
[2019-04-25 19:04] LABS: ALBUMIN 3.2 GM/DL (3.2-5.2); ALT/SGPT 22 U/L (12-78); AMYLASE 46 U/L (25-115); BILIRUBIN,DIRECT 0.2 MG/DL (0.0-0.2); BILIRUBIN,TOTAL 0.6 MG/DL (0.2-1.0); BLOOD UREA NITROGEN 11 MG/DL (7-18); CALCIUM LEVEL 9.4 MG/DL (8.8-10.2); CARBON DIOXIDE LEVEL 23 MEQ/L (21-32); CHLORIDE LEVEL 93 MEQ/L (98-107); CK-MB VALUE MASS 1.8 NG/ML (<3.6); CPK CREATINE PHOSPHOKINASE 101 U/L (39-308); GLOMERULAR FILTRATION RATE > 60.0 (>42); GLUCOSE, FASTING 96 MG/DL (70-100); MB/CK RELATIVE INDEX 1.78 (< OR =4); POTASSIUM SERUM 3.9 MEQ/L (3.5-5.1); SODIUM LEVEL 126 MEQ/L (136-145); TOTAL PROTEIN 6.8 GM/DL (6.4-8.2); TROPONIN I 0.05 NG/ML (< 0.10)
[2019-04-25] MEDS ORDERED: VANCOMYCIN HCL 1,000 MG in IV FLUID PLACE HOLDER 1 EA IV ONE (19:15)
--- NOTE | 2019-04-25 19:23 | HPEPDOC ---
[facility] Medical History & Physical Date of Admission Apr 25, 2019 Date of Service: Apr 25, 2019 Primary Care Physician: Adalid Martinez MD Attending Physician: VERNA BURGOS MD History and Physical TIME OF SERVICE 745PM CHIEF COMPLAINT: Rash HISTORY OF PRESENT ILLNESS: Mr. Renee is a 73-year-old male who presented today with complaints of rash. Initially it started out with a red, raised lesion at the mid upper left leg that was about 2 inches in diameter, a few days ago. Over the last few days, he also developed redness , warmth and swelling involving the left anterior and lateral aspect of the upper leg. Associated symptoms include nausea, non-bloody, emesis one time today, fever, chills, and poor appetite. According to his he has lost a lot of weight over the last few weeks. Of note, on April 19 he had left lower extremity angiogram gram without stenting; the entry point was at the right femoral artery. The procedure was complicated by development of a right sided pseudoaneurysm which is healing well. Per discussion with the ED attending his temperature was 101.0 and WBC count was 14; Dr. Treviño vascular surgeon was consulted and he recommended vancomycin and Zosyn. REVIEW OF SYSTEMS: 12 point review systems negative except as listed in HPI PAST MEDICAL / SURGICAL HISTORY: 1. Chronic HTN 2. Chronic CAD status post stenting to the left circumflex in May 2017 /Dyslipidemia 3. Left lower extremity PAD, status post angiogram in April 2019 4. Metastatic prostate cancer s/p prostatectomy in 2018 (last session of radiation therapy was 2.5- 3 weeks ago) 5. Rheumatoid arthritis 6. Glaucoma 7. Bilateral cataract surgery 8. Right wrist surgery. 9. Tonsillectomy SOCIAL HISTORY: Smoking Denies alcohol use. Denies alcohol use FAMILY HISTORY: Prostate cancer affecting his father, and brother ALLERGIES: Please see below. HOME MEDICATIONS: Please see below. PHYSICAL EXAMINATION: VITAL SIGNS: Temperature 101.0, pulse 91, respiratory rate 16, blood pressure 191/88, pulse oximetry 99% on room air GENERAL APPEARANCE: Well-nourished, well-developed, does not appear toxic HEENT: Normocephalic, atraumatic, mucous members moist and pink, lips acyanotic CARDIOVASCULAR: Heart has a regular rate and rhythm, there are no murmurs, rubs or gallops, the radial pulses are bounding, dorsalis pedis pulses are diminished but palpable, there is no lower extremity edema LUNGS: There is equal air entry bilaterally, and lungs are clear to auscultation bilaterally ABDOMEN: Bowel sounds are hypoactive MUSCULOSKELETAL: Range of motion is intact in all 4 extremities INTEGUMENT: There is a resolving pseudoaneurysm at the right groin area. The s kin surrounding the area. Has some bruising. There are 2 distinct lesions that are red, warm and swollen. The first is at the medial aspect of the left upper leg it is about 4" x 3". The second area of redness is much larger and extends from the mid left upper thigh to the lateral aspect of the upper thigh. NEUROLOGICAL: Cranial nerves II-12 grossly intact, speech is not dysarthric PSYCHIATRIC: The patient is alert and oriented to person, place and time, able to understand and follow commands, has a flat affect LABORATORY DATA: CBC is remarkable for WBC count of 14.4, hemoglobin 9.8, with an MCV of 93.5. The chemistry is remarkable for sodium 126, chloride of 93, and CRP of 11.3 IMAGING: The chest x-ray appears unremarkable but the final read is pending. MICROBIOLOGY: Please see below. ASSESSMENT: Mr. Renee is a 73-year-old male with a past medical history of metastatic prostate cancer, chronic hypertension, chronic CAD, or if arterial disease, and rheumatoid arthritis who will be admitted for management of sepsis, possibly secondary to cellulitis. PLAN: 1. Sepsis 2/2 left leg Cellulits ? Left lower extremity PAD, status post angiogram in April 2019 SIRS criteria include Temp >101 and WBC >12 The CRP is elevated NEW2S Score = 2.6 = low risk ALT-70 Score to diagnose LE Cellulitis = 7 points =>82.2% likelihood of to cellulitis, therefore, treat Plan: admit to PCU (in-pt status) / sepsis protocol / f/u blood cx / d/c levofloxacin / c/w Zosyn & Vancomycin / f/u w to determine if pt needs CTA / c/w IVF / Consulted , the day time team can f/u with him on whether the patient will also need a CTA of the aorta w run off this admission 2. Uncontrolled hypertension Plan: Continue with home meds/add IV metoprolol when necessary for systolic blood pressure greater than 160 3. Normocytic normochromic anemia Likely secondary to anemia of chronic disease. Plan: Follow-up CBC/keep hemoglobin > 7 4 Acute on chronic hyponatremia Likely hypotonic hyponatremia due to diuretic use Patient does not appear to have acute neurological symptoms Plan: Neuro checks /IVF / follow-up chemistry in the morning 5. Chronic CAD / Dyslipidemia status post stenting to the left circumflex in May 2017 Plan: Continue with home meds 5. Rheumatoid arthritis Plan: Continue with home meds 6. Metastatic prostate cancer s/p prostatectomy in 2018 (last session of radiation therapy was 2.5- 3 weeks ago) Plan: Follow up with oncologist on an outpatient basis DVT px w Heparin Dispo: pending clinical course Laboratory Data CBC/BMP Laboratory Tests 04/25/19 18:26 Red Blood Count 3.07 L, Mean Corpuscular Volume 93.5, Mean Corpuscular Hemoglobin 31.9, Mean Corpuscular Hemoglobin Concent 34.1, Red Cell Distribution Width 14.6 H, Neutrophils (%) (Auto) 89.2 H, Lymphocytes (%) (Auto) 3.0 L, Monocytes (%) (Auto) 6.9 H, Eosinophils (%) (Auto) 0.0, Basophils (%) (Auto) 0.1, Neutrophils # (Auto) 12.9 H, Lymphocytes # (Auto) 0.4 L, Monocytes # (Auto) 1.0 H, Eosinophils # (Auto) 0.0, Basophils # (Auto) 0.0 Microbiology Microbiology 04/25/19 Blood Culture, Received Pending 04/25/19 Blood Culture, Received Pending 04/25/19 Urine Culture, Received Pending Home Medications Scheduled Acetaminophen (Acetaminophen ER) 650 Mg Tablet.er, 1,950 MG PO BID TAKES IN THE MORNING AND WITH LUNCH Ascorbic Acid (Vitamin C) 500 Mg Tablet, 1,000 MG PO DAILY Aspirin (Aspirin EC) 81 Mg Tab, 81 MG PO DAILY Atorvastatin Calcium (Lipitor) 10 Mg Tab, 10 MG PO QHS Calcium Citrate (Calcitrate) 200 Mg Tablet, 315 MG PO BID Cholecalciferol (Vitamin D3) (Vitamin D3) 2,000 Unit Cap, 2,000 UNIT PO DAILY Chondroitin Sulfate A Sodium (Optiflex-C) 400 Mg Capsule, 1,200 MG PO BID Flaxseed Oil (Flaxseed Oil) 1,000 Mg Cap, 540 MG PO BID Folic Acid (Folic Acid) 1 Mg Tab, 2 MG PO DAILY Glucosamine HCl (Glucosamine HCl) 1,500 Mg Tablet, 1,500 MG PO BID Hydrochlorothiazide (Hydrochlorothiazide) 25 Mg Tab, 25 MG PO DAILY Hydroxychloroquine Sulfate (Plaquenil) 200 Mg Tablet, 200 MG PO BID Lactase (Lactaid) 3,000 Unit Tab, 3,000 UNIT PO PRN WTIH DAIRY Lactobacillus Combo No.10 (Probiotic) 1 Each Capsule, 1 CAP PO DAILY Levofloxacin (Levofloxacin) 500 Mg Tablet, 500 MG PO DAILY Methotrexate Sodium (Methotrexate) 25 Mg/1 Ml Vial, 0.7 ML SC QWEEK TUESDAYS Metoprolol Succinate (Metoprolol Succinate) 25 Mg Tab, 25 MG PO QPM Multivitamins (Thera M Plus Tablet) 1 Tab Tab, 1 TAB PO DAILY [place]-3 Fatty Acids/Fish Oil (Fish Oil 1,200 mg Softgel) 1 Cap Cap, 1 CAP PO BID Pantoprazole Sodium (Protonix) 40 Mg Tab, 40 MG PO DAILY Polyethylene Glycol 3350 (Miralax) 119 Gm Powder, 17 GM PO DAILY Prednisone (Prednisone) 10 Mg Tablet, 5 MG PO DAILY Ubidecarenone (Coq-10) 100 Mg Capsule, 100 MG PO DAILY Valsartan (Valsartan) 320 Mg Tablet, 320 MG PO QPM [Borage Oil] 1,000 MG CAP, 1,000 MG PO BID Scheduled PRN Acetaminophen (Acetaminophen ER) 650 Mg Tablet.er, 1,950 MG PO QPM PRN for PAIN Nitroglycerin (Nitrostat) 0.4 Mg Subl, 0.4 MG SL NITRO PRN for CHEST PAIN Allergies Coded Allergies: No Known Allergies (Unverified , 05/16/18) A-FIB/CHADSVASC A-FIB History Current/History of A-Fib/PAF?: No Current PO Anticoag Therapy: No VERNA BURGOS MD Apr 25, 2019 19:23
[2019-04-25] MEDS ORDERED: VANCOMYCIN HCL 1,000 MG, VIAL MATE ADAPTER 1 EACH in D5W 250 ML IV ONE (19:30)
[2019-04-25] MEDS ORDERED: SODIUM CHLORIDE 0.9% 1000ML IV SCH (19:30)
[2019-04-25] MEDS ORDERED: ACET650T15 PO ×2 (20:01)
[2019-04-25] MEDS ORDERED: LEVO500T3 PO (20:10)
[2019-04-25] MEDS ORDERED: NITROGLYCERIN 0.4 MG SUBL TABLET SL PRN (20:30)
[2019-04-25] MEDS ORDERED: PIPERACILLIN/TAZOBACTAM SOD 3.375 GM in D5W MINI-BAG PLUS 50 ML IV ONE (21:00)
[2019-04-25] MEDS ORDERED: METOPROLOL 5 MG/5 ML VIAL IV PRN (21:00)
[2019-04-25 21:59] VITALS: BP 138/65
[2019-04-25] MEDS: VALSARTAN 80 MG TAB (DIOVAN) PO SCH (22:50)
[2019-04-25] MEDS: ATORVASTATIN 10 MG TAB PO SCH (22:50)
[2019-04-25] MEDS: HEPARIN SOD (PORCINE) 5000 UNITS/ML VIAL SC SCH (22:51)
[2019-04-25] MEDS: METOPROLOL SUCC *XL* 25MG TAB (TopROL *XL*) PO SCH (22:51)
[2019-04-25] MEDS: PIPERACILLIN/TAZOBACTAM SOD 3.375 GM in D5W MINI-BAG PLUS 50 ML IV SCH (23:15)
[2019-04-25 23:59] VITALS: BP 97/50
[2019-04-26] MEDS ORDERED: VANCOMYCIN HCL 1,000 MG, VIAL MATE ADAPTER 1 EACH in D5W/0.2% SODIUM CHLORIDE 250 ML IV ONE ×3
[2019-04-26 04:00] VITALS: BP 153/68
--- NOTE | 2019-04-26 04:44 | PHACANCOPD ---
PHARMACY VANCOMYCIN DOSING Pt Demographics Demographics Patient Age:73 , Weight:84.090 , Gender: male Adjusted Body Weight Events Past 24 Hours Events Past 24 Hours: NO: Dialysis, Diuretic Therapy, Change in CrCl, Fever, Elevation in WBC, Pending Diagnostics, Pending Procedures, Other Vancomycin Vancomycin indication: SEPSIS Vancomycin Target Ranges: 15-20 mcg/ml Vancomycin Load Y/N: Yes Load Dose Date Time Vancomycin Load Dose: 2 GRAM LOAD Vancomycin Dose Date: 04/26/19. Current Vancomycin Dose: Intermittent Dosing?: No Labs Labs Laboratory Tests 04/25/19 18:26 Red Blood Count 3.07 L, Mean Corpuscular Volume 93.5, Mean Corpuscular Hemoglobin 31.9, Mean Corpuscular Hemoglobin Concent 34.1, Red Cell Distribution Width 14.6 H, Neutrophils (%) (Auto) 89.2 H, Lymphocytes (%) (Auto) 3.0 L, Monocytes (%) (Auto) 6.9 H, Eosinophils (%) (Auto) 0.0, Basophils (%) (Auto) 0.1, Neutrophils # (Auto) 12.9 H, Lymphocytes # (Auto) 0.4 L, Monocytes # (Auto) 1.0 H, Eosinophils # (Auto) 0.0, Basophils # (Auto) 0.0 Micro Microbiology 04/25/19 Blood Culture, Received Pending 04/25/19 Blood Culture, Received Pending 04/25/19 Urine Culture, Received Pending Creatinine Clearance Date:04/26/19. Creatinine Clearance: CALCULATED 76 Pending Labs BC AND UC PENDING Assessment and Plan Maintaining Current Dose?: Yes Reason for dose change: No Dose Change Pharmacist Note Pharmacist Note Date: 04/26/19. Pharmacist note: Patient presented to ED with redness , warmth and swelling involving the left anterior and lateral aspect of the upper leg. Pt admitted with sepsis indication. Patient does have a history of vancomycin IV usage here at [facility]. Patient also placed on Zosyn 3.375g q6h. Blood culture and urine culture pending. Current CrCl calculated to be 76 ml/min. Based on history of IV vancomycin usage and current condition, I loaded the patient with 2 grams (received 1 gram @2000 and 1 gram at 0100) and then scheduled a maintenance dose of 1250mg q12h starting at 0700. I have scheduled a trough before the 4th dose tomorrow 04/27 @0600. We will continue to monitor patient and adjust dose as needed. XAVI [facility] Apr 26, 2019 04:44
[2019-04-26] MEDS: HEPARIN SOD (PORCINE) 5000 UNITS/ML VIAL SC SCH ×3 (05:01→20:03)
[2019-04-26] MEDS: PIPERACILLIN/TAZOBACTAM SOD 3.375 GM in D5W MINI-BAG PLUS 50 ML IV SCH ×4 (05:01→23:26)
[2019-04-26 05:31] LABS: HEMATOCRIT 25.5 % (42.0-52.0); HEMOGLOBIN 8.7 g/dl (13.5-17.5); MEAN CORPUSCULAR HEMOGLOBIN 31.1 pg (27.0-33.0); MEAN CORPUSCULAR HGB CONC 34.1 g/dl (32.0-36.5); MEAN CORPUSCULAR VOLUME 91.1 fl (80.0-96.0); PLATELET COUNT, AUTOMATED 327 10^3/uL (150-450); WHITE BLOOD COUNT 12.5 10^3/uL (4.0-10.0)
[2019-04-26 05:55] LABS: BLOOD UREA NITROGEN 9 MG/DL (7-18); CALCIUM LEVEL 9.3 MG/DL (8.8-10.2); CARBON DIOXIDE LEVEL 25 MEQ/L (21-32); CHLORIDE LEVEL 99 MEQ/L (98-107); CREATININE FOR GFR 0.74 MG/DL (0.70-1.30); GLOMERULAR FILTRATION RATE > 60.0 (>42); GLUCOSE, FASTING 89 MG/DL (70-100); POTASSIUM SERUM 3.5 MEQ/L (3.5-5.1); SODIUM LEVEL 130 MEQ/L (136-145)
[2019-04-26] MEDS: VANCOMYCIN HCL 750 MG, VIAL MATE ADAPTER 1 EACH in D5W 250 ML IV SCH ×2 (07:10→18:29)
[2019-04-26 08:00] VITALS: BP 129/61
[2019-04-26] MEDS: LACTOBACILLUS ACIDOPHILUS CAP (BACID) PO SCH (08:15)
[2019-04-26] MEDS: VANCOMYCIN HCL 500 MG in D5W MINI-BAG PLUS 100 ML IV SCH ×2 (08:15→19:53)
[2019-04-26] MEDS: FOLIC ACID 1 MG TAB PO SCH (08:15)
[2019-04-26] MEDS: predniSONE 5 MG TAB PO SCH (08:16)
[2019-04-26] MEDS: PANTOPRAZOLE 40MG TAB (PROTONIX) PO SCH (08:16)
[2019-04-26] MEDS: hydroCHLOROthiazide 25 MG TAB PO SCH (08:16)
[2019-04-26] MEDS: ASPIRIN 81 MG ENTERIC TAB PO SCH (08:16)
[2019-04-26] MEDS: MULTIVITAMINS/MINERALS THERAP 1 TAB PO SCH (08:16)
[2019-04-26] MEDS: MIRALAX *UNIT DOSE* 17GM PACKET PO SCH (08:17)
--- NOTE | 2019-04-26 09:23 | REP ---
HISTORY: Septic shock. COMPARISON: 03/14/2018 The technique utilized in obtaining the radiograph has magnified the cardiac silhouette and accentuated the interstitial markings. Chronic changes are seen in the left lung base, status quo. There are no acute patchy parenchymal opacities or pleural effusions. The cardiac silhouette is accentuated by technique. There is no change in the osseous structures. IMPRESSION: Stable appearing chronic changes without evidence of acute cardiopulmonary disease. Electronically Signed by José Miguel Waldron DO 04/26/2019 10:03 A
[2019-04-26 11:58] VITALS: BP 132/64
[2019-04-26 16:00] VITALS: BP 133/61
[2019-04-26 20:00] VITALS: BP 150/70
[2019-04-26] MEDS ORDERED: VANCOMYCIN HCL 1,000 MG, VIAL MATE ADAPTER 1 EACH in D5W/0.2% SODIUM CHLORIDE 250 ML IV SCH (20:00)
[2019-04-26] MEDS: ATORVASTATIN 10 MG TAB PO SCH (20:02)
[2019-04-26] MEDS: METOPROLOL SUCC *XL* 25MG TAB (TopROL *XL*) PO SCH (20:02)
[2019-04-26] MEDS: VALSARTAN 80 MG TAB (DIOVAN) PO SCH (20:03)
--- NOTE | 2019-04-26 21:32 | ECGEPIP ---
[facility] - ED Test Date: 2019-04-25 Pat Name: YOJANA PERSAUD Department: Room: [place] [address] Gender: Male Commercial Carpenter: KACIE : 1945 Requested By: JEAN KUHN Order Number: [id number] Reading MD: Adelina Mcclain Measurements Intervals [place] Rate: 82 P: 63 MD: 164 QRS: 5 QRSD: 86 T: 5 QT: 343 QTc: 402 Interpretive Statements SINUS RHYTHM WITH OCCASIONAL SUPRAVENTRICULAR PREMATURE COMPLEXES POSSIBLE RIGHT VENTRICULAR CONDUCTION DELAY NONSPECIFIC ST & T-WAVE ABNORMALITY NO PRIOR Electronically Signed on 04-26-2019 21:31:46 EDT by Adelina Mcclain
[2019-04-26 23:59] VITALS: BP 125/60
[2019-04-27 04:00] VITALS: BP 134/61
[2019-04-27] MEDS: PIPERACILLIN/TAZOBACTAM SOD 3.375 GM in D5W MINI-BAG PLUS 50 ML IV SCH ×4 (05:09→22:24)
[2019-04-27] MEDS: HEPARIN SOD (PORCINE) 5000 UNITS/ML VIAL SC SCH ×3 (05:09→20:12)
[2019-04-27] MEDS: VANCOMYCIN HCL 750 MG, VIAL MATE ADAPTER 1 EACH in D5W 250 ML IV SCH ×2 (07:06→18:34)
[2019-04-27 08:00] VITALS: BP 143/65
[2019-04-27] MEDS ORDERED: SLF 3 ML SYR IV PRN (08:15)
[2019-04-27] MEDS: VANCOMYCIN HCL 500 MG in D5W MINI-BAG PLUS 100 ML IV SCH ×2 (09:28→19:46)
[2019-04-27] MEDS: ASPIRIN 81 MG ENTERIC TAB PO SCH (09:29)
[2019-04-27] MEDS: hydroCHLOROthiazide 25 MG TAB PO SCH (09:29)
[2019-04-27] MEDS: FOLIC ACID 1 MG TAB PO SCH (09:29)
[2019-04-27] MEDS: LACTOBACILLUS ACIDOPHILUS CAP (BACID) PO SCH (09:29)
[2019-04-27] MEDS: PANTOPRAZOLE 40MG TAB (PROTONIX) PO SCH (09:29)
[2019-04-27] MEDS: MULTIVITAMINS/MINERALS THERAP 1 TAB PO SCH (09:29)
[2019-04-27] MEDS: MIRALAX *UNIT DOSE* 17GM PACKET PO SCH (09:30)
[2019-04-27] MEDS: predniSONE 5 MG TAB PO SCH (09:30)
--- NOTE | 2019-04-27 11:13 | IPNPDOC ---
Subjective Date Seen The patient was seen on 04/27/19. Subjective Chief Complaint/HPI Complaining of pain and redness at the left thigh General: Denies: ROS Unobtainable, Chills, Night Sweats, Fatigue, Malaise, Normal Appetite, Other Symptoms Constitutional: Denies: Chills, Fever, Malaise, Night Sweats, Weakness, Fatigue, Weight Loss, Lethargy, Other Eyes: Denies: Pain, Vision change, Conjunctivae inflammation, Eyelid inflammation, Redness, Other ENT: Denies: Head Aches, Ear Pain, Dysphagia, Sinus Congestion, Post Nasal Drip, Sore Throat, Epistaxis, Other Symptoms Skin: Reports: Rash Pulmonary: Denies: Dyspnea, Cough, Pleuritic Chest Pain, Other Symptoms Cardiovascular: Denies: Chest Pain, Palpitations, Orthopnea, Paroxysmal Noc. Dyspnea, Edema, Lt Headedness, Other Symptoms Musculoskeletal: Denies: Neck Pain, Back Pain, Shoulder Pain, Arm Pain, Hand Pain, Leg Pain, Foot Pain, Joint Pain, Muscle Pain, Spasms, Other Symptoms Neurological: Denies: Weakness, Numbness, Incoordination, Change in speech, Confusion, Seizures, Other Symptoms Psych: Denies: Mood Normal, Anxiety, Depression, Memory Issues, Thoughts of Self Harm, Anger, Thoughts of Harming Other, Other Psych Objective Physical Examination General Exam: Positive: Alert, Cooperative Eye Exam: Positive: PERRLA, Conjunctiva & lids normal ENT Exam: Positive: Atraumatic Neck Exam: Positive: Supple Chest Exam: Positive: Clear to auscultation Heart Exam: Positive: Rate Normal, Normal S1, Normal S2 Abdomen Exam: Positive: Normal bowel sounds, Soft Extremity Exam: Positive: Normal pulses Skin Exam: Positive: Nl turgor and temperature Neuro Exam: Positive: Normal Speech, Strength at 5/5 X4 ext, Sensation Intact Psych Exam: Positive: Mental status NL, Mood NL Assessment /Plan Problems (1) Cellulitis Status: Acute Problem Text: Sepsis 2/2 left leg Cellulits ? Left lower extremity PAD, status post angiogram in April 2019 SIRS criteria include Temp >101 and WBC >12 The CRP is elevated NEW2S Score = 2.6 = low risk ALT-70 Score to diagnose LE Cellulitis = 7 points =>82.2% likelihood of to cellulitis, therefore, treat Admitted to PCU with telemetry Continue Charleen Continue IV fluids Blood cultures pending (2) Femoral artery pseudo-aneurysm, right Status: Chronic Problem Text: Patient seen by surgical service Further recommendations as per Dr. Treviño Plan/VTE VTE Prophylaxis Ordered?: Yes VS, I&O, 24H, Fishbone Vital Signs/I&O Vital Signs Date Time Temp Pulse Resp B/P (MAP) Pulse Ox O2 Delivery O2 Flow Rate FiO2 04/27/19 08:00 98.0 57 18 143/65 (91) 99 04/25/19 21:52 Room Air I&O- Last 24 Hours up to 6 AM 04/27/19 06:00 Intake Total 1380 ml Output Total 1650 ml Balance -270 ml Laboratory Data 24H LABS Laboratory Tests 2 04/27/19 05:57: Vancomycin Level Trough 17.8 Microbiology Microbiology 04/25/19 Blood Culture - Preliminary, Resulted No growth after 24 hours . All specim... 04/25/19 Blood Culture - Preliminary, Resulted No growth after 24 hours . All specim... 04/25/19 Urine Culture - Final, Complete JOVANY TOMLINSON MD Apr 27, 2019 11:13
[2019-04-27 12:00] VITALS: BP 159/63
--- NOTE | 2019-04-27 12:58 | CR.PDOC ---
General Date of Consultation: Apr 27, [address] Treviño HPI: Mr. Renee is a 73-year-old male admitted to hospitalist service with LUE cellulitis. April 19 he had left lower extremity angiogram as per Dr Treviño, the procedure was complicated by development of a right sided pseudoaneurysm s/p right fe moral pseudoaneurysm repair was per Dr. Treviño 04/19/2019. This Am the pt denies any groin or LE pain. Has erythema and rash LLE with warmth to touch. PAST MEDICAL / SURGICAL HISTORY: HTN CAD status post stenting 05/2017 Dyslipidemia Left lower extremity PAD, status post angiogram in April 2019 Metastatic prostate cancer s/p prostatectomy in 2018 (last session of radiation therapy was 2.5- 3 weeks ago) Glaucoma RA Bilateral cataract surgery Right wrist surgery. Tonsillectomy SOCIAL HISTORY: Smoking Denies alcohol use. FAMILY HISTORY: Prostate cancer affecting his father, and brother ROS: As noted in HPI, otherwise 11pt ROS of systems reviewed and unremarkable. PE: GEN: 73yoM, appears stated age. Alert and oriented x 3. HEENT: Normocephalic, atraumatic. No facial asymmetry. Moist mucous membranes. CHEST: Regular rate and rhythm, +S1, +S2 LUNGS: Clear to auscultation bilaterally. No wheezes, rales, or rhonchi. Breathing appears symmetric and easy. ABD: Round, soft, non-tender, non-distended. EXT: No lower extremity edema appreciated. erythema and rash inner Lt thigh and upper thigh extending toward hip area, warm to touch. Ecchymosis Rt groin appears to be resolving. NEURO: Alert and oriented x 3. No focal deficits appreciated. A&P: 1. LLE cellulitis. Mgmt as per medicine svc. 2. Rt groin pseudoaneurysm S/P repair as per Dr Treviño 04/19/19. Check Rt groin arterial US to ensure resolution. Monitor. DVT prophylaxis. SQ heparin Vital Signs/I&O Vital Signs Date Time Temp Pulse Resp B/P (MAP) Pulse Ox O2 Delivery O2 Flow Rate FiO2 04/27/19 12:00 98.1 63 18 159/63 (95) 94 04/25/19 21:52 Room Air I&O- Last 24 Hours up to 6 AM 04/27/19 06:00 Intake Total 1380 ml Output Total 1650 ml Balance -270 ml Laboratory Data Labs 24H Laboratory Tests 2 04/27/19 05:57: Vancomycin Level Trough 17.8 Microbiology Microbiology 04/25/19 Blood Culture - Preliminary, Resulted No growth after 24 hours . All specim... 04/25/19 Blood Culture - Preliminary, Resulted No growth after 24 hours . All specim... 04/25/19 Urine Culture - Final, Complete Allergies Coded Allergies: No Known Allergies (Unverified , 05/16/18) Home Medications Scheduled Acetaminophen (Acetaminophen ER) 650 Mg Tablet.er, 1,950 MG PO BID, (Reported) TAKES IN THE MORNING AND WITH LUNCH Ascorbic Acid (Vitamin C) 500 Mg Tablet, 1,000 MG PO DAILY, (Reported) Aspirin (Aspirin EC) 81 Mg Tab, 81 MG PO DAILY, (Reported) Atorvastatin Calcium (Lipitor) 10 Mg Tab, 10 MG PO QHS, (Reported) Calcium Citrate (Calcitrate) 200 Mg Tablet, 315 MG PO BID, (Reported) Cholecalciferol (Vitamin D3) (Vitamin D3) 2,000 Unit Cap, 2,000 UNIT PO DAILY, (Reported) Chondroitin Sulfate A Sodium (Optiflex-C) 400 Mg Capsule, 1,200 MG PO BID, (Reported) Flaxseed Oil (Flaxseed Oil) 1,000 Mg Cap, 540 MG PO BID, (Reported) Folic Acid (Folic Acid) 1 Mg Tab, 2 MG PO DAILY, (Reported) Glucosamine HCl (Glucosamine HCl) 1,500 Mg Tablet, 1,500 MG PO BID, (Reported) Hydrochlorothiazide (Hydrochlorothiazide) 25 Mg Tab, 25 MG PO DAILY, (Reported) Hydroxychloroquine Sulfate (Plaquenil) 200 Mg Tablet, 200 MG PO BID, (Reported) Lactase (Lactaid) 3,000 Unit Tab, 3,000 UNIT PO PRN, (Reported) [facility] DAIRY Lactobacillus Combo No.10 (Probiotic) 1 Each Capsule, 1 CAP PO DAILY, (Reported) Levofloxacin (Levofloxacin) 500 Mg Tablet, 500 MG PO DAILY, (Reported) Methotrexate Sodium (Methotrexate) 25 Mg/1 Ml Vial, 0.7 ML SC QWEEK, (Reported) TUESDAYS Metoprolol Succinate (Metoprolol Succinate) 25 Mg Tab, 25 MG PO QPM, (Reported) Multivitamins (Thera M Plus Tablet) 1 Tab Tab, 1 TAB PO DAILY, (Reported) [place]-3 Fatty Acids/Fish Oil (Fish Oil 1,200 mg Softgel) 1 Cap Cap, 1 CAP PO BID, (Reported) Pantoprazole Sodium (Protonix) 40 Mg Tab, 40 MG PO DAILY, (Reported) Polyethylene Glycol 3350 (Miralax) 119 Gm Powder, 17 GM PO DAILY, (Reported) Prednisone (Prednisone) 10 Mg Tablet, 5 MG PO DAILY, (Reported) Ubidecarenone (Coq-10) 100 Mg Capsule, 100 MG PO DAILY, (Reported) Valsartan (Valsartan) 320 Mg Tablet, 320 MG PO QPM, (Reported) [Borage Oil] 1,000 MG CAP, 1,000 MG PO BID, (Reported) Scheduled PRN Acetaminophen (Acetaminophen ER) 650 Mg Tablet.er, 1,950 MG PO QPM PRN for PAIN, (Reported) Nitroglycerin (Nitrostat) 0.4 Mg Subl, 0.4 MG SL NITRO PRN for CHEST PAIN, (Reported) Estefania Talbert Apr 27, 2019 12:58
[2019-04-27] MEDS: SLF 3 ML SYR IV SCH ×2 (13:03→20:14)
--- NOTE | 2019-04-27 15:08 | REP ---
Right groin Doppler ultrasound: History: History of right-sided pseudoaneurysm, treated with thrombin injection. Findings: No vascular flow is seen within the previously noted pseudoaneurysm. The thrombosed aneurysmal area measures 4.0 x 2.6 x 1.5 cm. Impression: No flow is seen in the previously noted pseudoaneurysm Electronically Signed by Sy Oakes MD 04/27/2019 03:00 P
[2019-04-27 16:00] VITALS: BP 134/66
[2019-04-27 20:00] VITALS: BP 136/63
[2019-04-27] MEDS: METOPROLOL SUCC *XL* 25MG TAB (TopROL *XL*) PO SCH (20:12)
[2019-04-27] MEDS: VALSARTAN 80 MG TAB (DIOVAN) PO SCH (20:13)
[2019-04-27] MEDS: ATORVASTATIN 10 MG TAB PO SCH (20:13)
[2019-04-28 04:00] VITALS: BP 152/82
[2019-04-28] MEDS: HEPARIN SOD (PORCINE) 5000 UNITS/ML VIAL SC SCH ×3 (04:49→21:17)
[2019-04-28] MEDS: PIPERACILLIN/TAZOBACTAM SOD 3.375 GM in D5W MINI-BAG PLUS 50 ML IV SCH ×4 (04:49→23:05)
[2019-04-28] MEDS: SLF 3 ML SYR IV SCH ×3 (04:50→21:18)
[2019-04-28 05:19] LABS: HEMATOCRIT 28.2 % (42.0-52.0); HEMOGLOBIN 9.6 g/dl (13.5-17.5); MEAN CORPUSCULAR HEMOGLOBIN 32.1 pg (27.0-33.0); MEAN CORPUSCULAR VOLUME 94.3 fl (80.0-96.0); PLATELET COUNT, AUTOMATED 366 10^3/uL (150-450); RED BLOOD COUNT 2.99 10^6/uL (4.30-6.10); WHITE BLOOD COUNT 10.5 10^3/uL (4.0-10.0)
[2019-04-28 05:38] LABS: ALBUMIN 2.5 GM/DL (3.2-5.2); ALT/SGPT 26 U/L (12-78); BILIRUBIN,TOTAL 0.5 MG/DL (0.2-1.0); BLOOD UREA NITROGEN 6 MG/DL (7-18); CALCIUM LEVEL 9.3 MG/DL (8.8-10.2); CARBON DIOXIDE LEVEL 25 MEQ/L (21-32); CHLORIDE LEVEL 100 MEQ/L (98-107); CREATININE FOR GFR 0.87 MG/DL (0.70-1.30); GLOMERULAR FILTRATION RATE > 60.0 (>42); GLUCOSE, FASTING 86 MG/DL (70-100); POTASSIUM SERUM 3.4 MEQ/L (3.5-5.1); SODIUM LEVEL 134 MEQ/L (136-145); TOTAL PROTEIN 6.3 GM/DL (6.4-8.2)
[2019-04-28] MEDS: VANCOMYCIN HCL 750 MG, VIAL MATE ADAPTER 1 EACH in D5W 250 ML IV SCH ×2 (06:07→19:54)
[2019-04-28 08:00] VITALS: BP 130/63
[2019-04-28] MEDS: hydroCHLOROthiazide 25 MG TAB PO SCH (08:05)
[2019-04-28] MEDS: FOLIC ACID 1 MG TAB PO SCH (08:05)
[2019-04-28] MEDS: VANCOMYCIN HCL 500 MG in D5W MINI-BAG PLUS 100 ML IV SCH ×2 (08:05→21:16)
[2019-04-28] MEDS: MIRALAX *UNIT DOSE* 17GM PACKET PO SCH (08:05)
[2019-04-28] MEDS: LACTOBACILLUS ACIDOPHILUS CAP (BACID) PO SCH (08:05)
[2019-04-28] MEDS: PANTOPRAZOLE 40MG TAB (PROTONIX) PO SCH (08:06)
[2019-04-28] MEDS: MULTIVITAMINS/MINERALS THERAP 1 TAB PO SCH (08:06)
[2019-04-28] MEDS: predniSONE 5 MG TAB PO SCH (08:06)
[2019-04-28] MEDS: ASPIRIN 81 MG ENTERIC TAB PO SCH (08:06)
--- NOTE | 2019-04-28 09:15 | IPNPDOC ---
Date Seen The patient was seen on 04/28/19. Progress Note Vascular Surgery Dr Treviño HPI: Mr. Renee is a 73-year-old male admitted to hospitalist service with LUE cellulitis. April 19 he had left lower extremity angiogram as per Dr Treviño, the procedure w as complicated by development of a right sided pseudoaneurysm s/p right femoral pseudoaneurysm repair was per Dr. Treviño 04/19/2019. This Am the pt denies any groin or LE pain. Has decreasing erythema and rash LLE. PAST MEDICAL / SURGICAL HISTORY: HTN CAD status post stenting 05/2017 Dyslipidemia Left lower extremity PAD, status post angiogram in April 2019 Metastatic prostate cancer s/p prostatectomy in 2018 (last session of radiation therapy was 2.5- 3 weeks ago) Glaucoma RA Bilateral cataract surgery Right wrist surgery. Tonsillectomy PE: GEN: 73yoM, appears stated age. Alert and oriented x 3. HEENT: Normocephalic, atraumatic. Moist mucous membranes. CHEST: Regular rate and rhythm, +S1, +S2 LUNGS: Clear to auscultation bilaterally. No wheezes, rales, or rhonchi. ABD: Round, soft, non-tender, non-distended. EXT: No lower extremity edema appreciated. erythema and rash inner Lt thigh and upper thigh extending toward hip area decreasing c/w 04/27, decreased warmth to touch. Ecchymosis Rt groin appears to be resolving. NEURO: Alert and oriented x 3. No focal deficits appreciated. Rt groin arterial US No flow is seen in the previously noted pseudoaneurysm Electronically Signed by Sy Oakes MD 04/27/2019 03:00 P A&P: 1. LLE cellulitis. Mgmt as per medicine svc. 2. Rt groin pseudoaneurysm S/P repair as per Dr Treviño 04/19/19. Rt groin arterial US 04/27/19 confirmed resolution. Monitor. DVT prophylaxis. SQ heparin VS, I&O, 24H, Fishbone Vital Signs/I&O Vital Signs Date Time Temp Pulse Resp B/P (MAP) Pulse Ox O2 Delivery O2 Flow Rate FiO2 04/28/19 08:00 97.4 56 18 130/63 (85) 98 04/25/19 21:52 Room Air I&O- Last 24 Hours up to 6 AM 04/28/19 06:00 Intake Total 2205 ml Output Total 1400 ml Balance 805 ml Laboratory Data 24H LABS Laboratory Tests 2 04/28/19 04:52: Nucleated Red Blood Cells % (auto) 0.0, Anion Gap 9, Glomerular Filtration Rate > 60.0, Blood Urea Nitrogen 6L, Creatinine 0.87, Sodium Level 134L, Potassium Level 3.4L, Chloride Level 100, Carbon Dioxide Level 25, Calcium Level 9.3, Aspartate Amino Transf (AST/SGOT) 23, Alanine Aminotransferase (ALT/SGPT) 26, Alkaline Phosphatase 80, Total Bilirubin 0.5, Total Protein 6.3L, Albumin 2.5#L, Albumin/Globulin Ratio 0.66L CBC/BMP Laboratory Tests 04/28/19 04:52 Red Blood Count 2.99 L, Mean Corpuscular Volume 94.3, Mean Corpuscular Hemoglobin 32.1, Mean Corpuscular Hemoglobin Concent 34.0, Red Cell Distribution Width 14.3, Calcium Level 9.3, Aspartate Amino Transf (AST/SGOT) 23, Alanine Aminotransferase (ALT/SGPT) 26, Alkaline Phosphatase 80, Total Bilirubin 0.5, Total Protein 6.3 L, Albumin 2.5 #L Microbiology Microbiology 04/25/19 Blood Culture - Preliminary, Resulted No Growth after 48 hours. All Specime... 04/25/19 Blood Culture - Preliminary, Resulted No Growth after 48 hours. All Specime... 04/25/19 Urine Culture - Final, Complete Estefania Talbert Apr 28, 2019 09:05
[2019-04-28] MEDS ORDERED: POTASSIUM CHLORIDE 10 MEQ SR TABLET PO ONE (10:00)
--- NOTE | 2019-04-28 10:58 | IPNPDOC ---
Subjective Date Seen The patient was seen on 04/28/19. Subjective Chief Complaint/HPI Patient comfortable offers no new complaints at the present time rash is resolving General: Denies: ROS Unobtainable, Chills, Night Sweats, Fatigue, Malaise, Normal Appetite, Other Symptoms Constitutional: Denies: Chills, Fever, Malaise, Night Sweats, Weakness, Fatigue, Weight Loss, Lethargy, Other Eyes: Denies: Pain, Vision change, Conjunctivae inflammation, Eyelid inflammati on, Redness, Other ENT: Denies: Head Aches, Ear Pain, Dysphagia, Sinus Congestion, Post Nasal Drip, Sore Throat, Epistaxis, Other Symptoms Pulmonary: Denies: Dyspnea, Cough, Pleuritic Chest Pain, Other Symptoms Cardiovascular: Denies: Chest Pain, Palpitations, Orthopnea, Paroxysmal Noc. Dyspnea, Edema, Lt Headedness, Other Symptoms Gastrointestinal: Denies: Nausea, Vomiting, Abdominal Pain, Diarrhea, Constipa tion, Melena, Hematochezia, Other Symptoms Musculoskeletal: Denies: Neck Pain, Back Pain, Shoulder Pain, Arm Pain, Hand Pain, Leg Pain, Foot Pain, Joint Pain, Muscle Pain, Spasms, Other Symptoms Neurological: Denies: Weakness, Numbness, Incoordination, Change in speech, Confusion, Seizures, Other Symptoms Objective Physical Examination General Exam: Positive: Alert, Cooperative Eye Exam: Positive: PERRLA, Conjunctiva & lids normal ENT Exam: Positive: Atraumatic Neck Exam: Positive: Supple Chest Exam: Positive: Clear to auscultation Heart Exam: Positive: Rate Normal, Normal S1, Normal S2 Abdomen Exam: Positive: Normal bowel sounds, Soft Extremity Exam: Positive: Normal pulses Skin Exam: Positive: Nl turgor and temperature Neuro Exam: Positive: Normal Speech, Strength at 5/5 X4 ext, Sensation Intact Psych Exam: Positive: Mental status NL, Mood NL Assessment /Plan Problems (1) Cellulitis Status: Acute Problem Text: , Sepsis secondary to left leg cellulitis Improving clinically with resolving rash and tenderness Surgical follow-up appreciated Continue present antibiotics and present care Cleared by physical therapy (2) Femoral artery pseudo-aneurysm, right Status: Chronic Problem Text: Followed by surgery appreciated Thromboses of the pseudoaneurysm was noted on sonogram Further monitor has been recommended by surgery Plan/VTE VTE Prophylaxis Ordered?: Yes VS, I&O, 24H, Fishbone Vital Signs/I&O Vital Signs Date Time Temp Pulse Resp B/P (MAP) Pulse Ox O2 Delivery O2 Flow Rate FiO2 04/28/19 08:00 97.4 56 18 130/63 (85) 98 04/25/19 21:52 Room Air I&O- Last 24 Hours up to 6 AM 04/28/19 05:59 Intake Total 2205 ml Output Total 1675 ml Balance 530 ml Laboratory Data 24H LABS Laboratory Tests 2 04/28/19 04:52: Nucleated Red Blood Cells % (auto) 0.0, Anion Gap 9, Glomerular Filtration Rate > 60.0, Blood Urea Nitrogen 6L, Creatinine 0.87, Sodium Level 134L, Potassium Level 3.4L, Chloride Level 100, Carbon Dioxide Level 25, Calcium Level 9.3, Aspartate Amino Transf (AST/SGOT) 23, Alanine Aminotransferase (ALT/SGPT) 26, Alkaline Phosphatase 80, Total Bilirubin 0.5, Total Protein 6.3L, Albumin 2.5#L, Albumin/Globulin Ratio 0.66L CBC/BMP Laboratory Tests 04/28/19 04:52 Red Blood Count 2.99 L, Mean Corpuscular Volume 94.3, Mean Corpuscular Hemoglobin 32.1, Mean Corpuscular Hemoglobin Concent 34.0, Red Cell Distribution Width 14.3, Calcium Level 9.3, Aspartate Amino Transf (AST/SGOT) 23, Alanine Aminotransferase (ALT/SGPT) 26, Alkaline Phosphatase 80, Total Bilirubin 0.5, Total Protein 6.3 L, Albumin 2.5 #L Microbiology Microbiology 04/25/19 Blood Culture - Preliminary, Resulted No Growth after 48 hours. All Specime... 04/25/19 Blood Culture - Preliminary, Resulted No Growth after 48 hours. All Specime... 04/25/19 Urine Culture - Final, Complete JOVANY TOMLINSON MD Apr 28, 2019 10:57
[2019-04-28 14:00] VITALS: BP 132/54
[2019-04-28] MEDS: ATORVASTATIN 10 MG TAB PO SCH (21:18)
[2019-04-28] MEDS: VALSARTAN 80 MG TAB (DIOVAN) PO SCH (21:18)
[2019-04-28] MEDS: METOPROLOL SUCC *XL* 25MG TAB (TopROL *XL*) PO SCH (21:18)
[2019-04-28 22:00] VITALS: BP 128/62
[2019-04-29] MEDS: HEPARIN SOD (PORCINE) 5000 UNITS/ML VIAL SC SCH ×3 (05:23→20:14)
[2019-04-29] MEDS: SLF 3 ML SYR IV SCH ×3 (05:23→20:16)
[2019-04-29] MEDS: PIPERACILLIN/TAZOBACTAM SOD 3.375 GM in D5W MINI-BAG PLUS 50 ML IV SCH ×4 (05:23→21:50)
[2019-04-29 06:00] VITALS: BP 114/62
[2019-04-29] MEDS: VANCOMYCIN HCL 750 MG, VIAL MATE ADAPTER 1 EACH in D5W 250 ML IV SCH (06:39)
[2019-04-29 07:40] LABS: BLOOD UREA NITROGEN 6 MG/DL (7-18); CALCIUM LEVEL 9.9 MG/DL (8.8-10.2); CARBON DIOXIDE LEVEL 26 MEQ/L (21-32); CHLORIDE LEVEL 102 MEQ/L (98-107); CREATININE FOR GFR 0.99 MG/DL (0.70-1.30); GLOMERULAR FILTRATION RATE > 60.0 (>42); GLUCOSE, FASTING 93 MG/DL (70-100); POTASSIUM SERUM 3.8 MEQ/L (3.5-5.1); SODIUM LEVEL 136 MEQ/L (136-145)
[2019-04-29] MEDS: MIRALAX *UNIT DOSE* 17GM PACKET PO SCH (07:57)
[2019-04-29] MEDS: hydroCHLOROthiazide 25 MG TAB PO SCH (09:00)
[2019-04-29] MEDS: PANTOPRAZOLE 40MG TAB (PROTONIX) PO SCH (09:00)
[2019-04-29] MEDS: LACTOBACILLUS ACIDOPHILUS CAP (BACID) PO SCH (09:00)
[2019-04-29] MEDS: FOLIC ACID 1 MG TAB PO SCH (09:00)
[2019-04-29] MEDS: ASPIRIN 81 MG ENTERIC TAB PO SCH (09:00)
[2019-04-29] MEDS: MULTIVITAMINS/MINERALS THERAP 1 TAB PO SCH (09:00)
[2019-04-29] MEDS: predniSONE 5 MG TAB PO SCH (09:01)
--- NOTE | 2019-04-29 12:46 | IPNPDOC ---
Subjective Date Seen The patient was seen on 04/29/19. Subjective Chief Complaint/HPI Patient is improving very well, rash and tenderness is resolving tremendously General: Denies: ROS Unobtainable, Chills, Night Sweats, Fatigue, Malaise, Normal Appetite, Other Symptoms Constitutional: Denies: Chills, Fever, Malaise, Night Sweats, Weakness, Fatigue, Weight Loss, Lethargy, Other Eyes: Denies: Pain, Vision change, Conjunctivae inflammation, Eyelid inflammation, Redness, Other ENT: Denies: Head Aches, Ear Pain, Dysphagia, Sinus Congestion, Post Nasal Drip, Sore Throat, Epistaxis, Other Symptoms Skin: Denies: Rash, Lesions, Jaundice, Bruising, Itching, Dry, Breakdown, Nail Changes, Other Pulmonary: Denies: Dyspnea, Cough, Pleuritic Chest Pain, Other Symptoms Cardiovascular: Denies: Chest Pain, Palpitations, Orthopnea, Paroxysmal Noc. Dyspnea, Edema, Lt Headedness, Other Symptoms Musculoskeletal: Denies: Neck Pain, Back Pain, Shoulder Pain, Arm Pain, Hand Pain, Leg Pain, Foot Pain, Joint Pain, Muscle Pain, Spasms, Other Symptoms Neurological: Denies: Weakness, Numbness, Incoordination, Change in speech, Confusion, Seizures, Other Symptoms Objective Physical Examination General Exam: Positive: Alert, Cooperative Eye Exam: Positive: PERRLA, Conjunctiva & lids normal ENT Exam: Positive: Atraumatic Neck Exam: Positive: Supple Chest Exam: Positive: Clear to auscultation Heart Exam: Positive: Rate Normal, Normal S1, Normal S2 Abdomen Exam: Positive: Normal bowel sounds, Soft Extremity Exam: Positive: Normal pulses Skin Exam: Positive: Nl turgor and temperature Neuro Exam: Positive: Normal Speech, Strength at 5/5 X4 ext, Sensation Intact Psych Exam: Positive: Mental status NL, Mood NL Assessment /Plan Problems (1) Cellulitis Status: Acute Problem Text: , Sepsis secondary to left leg cellulitis Improving very well with resolving rash and tenderness Surgical follow-up appreciated Continue present antibiotics and present care Cleared by physical therapy Possible DC in a.m. (2) Femoral artery pseudo-aneurysm, right Status: Chronic Problem Text: Followed by surgery appreciated Thromboses of the pseudoaneurysm was noted on sonogram Further monitor has been recommended by surgery Plan/VTE VTE Prophylaxis Ordered?: Yes VS, I&O, 24H, Fishbonharper Vital Signs/I&O Vital Signs Date Time Temp Pulse Resp B/P (MAP) Pulse Ox O2 Delivery O2 Flow Rate FiO2 04/29/19 06:00 96.8 74 15 114/62 (79) 98 04/25/19 21:52 Room Air I&O- Last 24 Hours up to 6 AM 04/29/19 06:00 Intake Total 1145 ml Balance 1145 ml Laboratory Data 24H LABS Laboratory Tests 2 04/29/19 06:36: Anion Gap 8, Glomerular Filtration Rate > 60.0, Blood Urea Nitrogen 6L, Creatinine 0.99, Sodium Level 136, Potassium Level 3.8, Chloride Level 102, Carbon Dioxide Level 26, Calcium Level 9.9, Vancomycin Level Trough 23.0H CBC/BMP Laboratory Tests 04/29/19 06:36 Calcium Level 9.9 Microbiology Microbiology 04/25/19 Blood Culture - Preliminary, Resulted No Growth after 72 hours. All specime... 04/25/19 Blood Culture - Preliminary, Resulted No Growth after 72 hours. All specime... 04/25/19 Urine Culture - Final, Complete JOVANY TOMLINSON MD Apr 29, 2019 12:46
[2019-04-29 14:00] VITALS: BP 122/62
[2019-04-29] MEDS: VANCOMYCIN HCL 1,000 MG, VIAL MATE ADAPTER 1 EACH in D5W 250 ML IV SCH (20:13)
[2019-04-29 20:15] VITALS: BP 106/58
[2019-04-29] MEDS: VALSARTAN 80 MG TAB (DIOVAN) PO SCH (20:15)
[2019-04-29] MEDS: METOPROLOL SUCC *XL* 25MG TAB (TopROL *XL*) PO SCH (20:15)
[2019-04-29] MEDS: ATORVASTATIN 10 MG TAB PO SCH (20:15)
[2019-04-29 22:00] VITALS: BP 106/55
[2019-04-30] MEDS: PIPERACILLIN/TAZOBACTAM SOD 3.375 GM in D5W MINI-BAG PLUS 50 ML IV SCH (05:41)
[2019-04-30] MEDS: HEPARIN SOD (PORCINE) 5000 UNITS/ML VIAL SC SCH (05:41)
[2019-04-30] MEDS: SLF 3 ML SYR IV SCH (05:41)
[2019-04-30 06:00] VITALS: BP 119/57
[2019-04-30] MEDS: PANTOPRAZOLE 40MG TAB (PROTONIX) PO SCH (08:00)
[2019-04-30] MEDS: MULTIVITAMINS/MINERALS THERAP 1 TAB PO SCH (08:00)
[2019-04-30] MEDS: predniSONE 5 MG TAB PO SCH (08:00)
[2019-04-30] MEDS: FOLIC ACID 1 MG TAB PO SCH (08:00)
[2019-04-30] MEDS: LACTOBACILLUS ACIDOPHILUS CAP (BACID) PO SCH (08:00)
[2019-04-30] MEDS: ASPIRIN 81 MG ENTERIC TAB PO SCH (08:00)
[2019-04-30] MEDS: VANCOMYCIN HCL 1,000 MG, VIAL MATE ADAPTER 1 EACH in D5W 250 ML IV SCH (08:00)
[2019-04-30] MEDS: MIRALAX *UNIT DOSE* 17GM PACKET PO SCH ×2 (08:00→08:04)
[2019-04-30] MEDS: hydroCHLOROthiazide 25 MG TAB PO SCH (08:01)
[2019-04-30] MEDS ORDERED: AUGM875T28 PO (11:00)
--- NOTE | 2019-04-30 12:06 | DS.PDOC ---
Discharge Summary General Date of Admission Apr 25, 2019 at 19:28 Date of Discharge 04/30/19 Discharge Summary PROCEDURES PERFORMED DURING STAY: None. ADMITTING DIAGNOSES: 1. Cellulitis of left thigh. DISCHARGE DIAGNOSES: 1. Sepsis secondary to cellulitis of left thigh. COMPLICATIONS/CHIEF COMPLAINT: Cellulitis;Sepsis. HISTORY OF PRESENT ILLNESS: Mr. Renee is a 73-year-old male who presented today with complaints of rash. Initially it started out with a red, raised lesion at the mid upper left leg that was about 2 inches in diameter, a few days ago. Over the last few days, he also developed redness , warmth and swelling involving the left anterior and lateral aspect of the upper leg. Associated symptoms include nausea, non-bloody, emesis one time today, fever, chills, and poor appetite. According to his he has lost a lot of weight over the last few weeks. Of note, on April 19 he had left lower extremity angiogram gram without stenting; the entry point was at the right femoral artery. The procedure was complicated by development of a right sided pseudoaneurysm which is healing well. Per discussion with the ED attending his temperature was 101.0 and WBC count was 14; Dr. Treviño vascular surgeon was consulted and he recommended vancomycin and Zosyn.. HOSPITAL COURSE: Patient was admitted to medical floor with the diagnosis of cellulitis of left thigh and sepsis secondary to cellulitis. Patient was given IV fluids also was covered with broad spectrum antibiotics, such as a l Vanco and Zosyn Patient responded very well to the above antibiotic therapy and his cellulitis is almost completely resolved. Patient also was seen by vascular surgery for pseudoaneurysm of left femoral artery. A follow which no further recommendations were given by vascular surgery. Patient is clinically stable he'll be discharged home on by mouth Augmentin and follow with PCP as an outpatient in one week.. DISCHARGE MEDICATIONS: Please see below. ALLERGIES: Please see below. PHYSICAL EXAMINATION ON DISCHARGE: VITAL SIGNS: Please see below. GENERAL: Normal HEENT: PERRLA. Extraocular muscles intact NECK: Supple CARDIOVASCULAR EXAMINATION: S1, S2, regular RESPIRATORY EXAMINATION: Clear to A&P ABDOMINAL EXAMINATION: Benign EXTREMITIES: No clubbing, cyanosis, edema SKIN: Rash resolved on left thigh NEUROLOGICAL EXAMINATION: nofocal motor sensory deficit PSYCHIATRIC EXAMINATION: LABORATORY DATA: Please see below. IMAGING: Right groin Doppler ultrasound: History: History of right-sided pseudoaneurysm, treated with thrombin injection. Findings: No vascular flow is seen within the previously noted pseudoaneurysm. The thrombosed aneurysmal area measures 4.0 x 2.6 x 1.5 cm. Impression: No flow is seen in the previously noted pseudoaneurysm PROGNOSIS: Good ACTIVITY: As tolerated. DIET: As tolerated DISCHARGE PLAN: Follow with PCP as an outpatient DISPOSITION: . Home DISCHARGE INSTRUCTIONS: 1. As per Discharge instructions. ITEMS TO FOLLOWUP ON ON OUTPATIENT: 1. Follow with PCP in one week. DISCHARGE CONDITION: Stable. TIME SPENT ON DISCHARGE: 45 minutes. Vital Signs/I&Os Vital Signs Date Time Temp Pulse Resp B/P (MAP) Pulse Ox O2 Delivery O2 Flow Rate FiO2 04/30/19 06:00 98.7 61 17 119/57 (77) 99 04/25/19 21:52 Room Air I&O- Last 24 Hours up to 6 AM 04/30/19 06:00 Intake Total 1020 ml Output Total 0 ml Balance 1020 ml Microbiology Microbiology 04/25/19 Blood Culture - Preliminary, Resulted No Growth after 72 hours. All specime... 04/25/19 Blood Culture - Preliminary, Resulted No Growth after 72 hours. All specime... 04/25/19 Urine Culture - Final, Complete Discharge Medications Scheduled Acetaminophen (Acetaminophen ER) 650 Mg Tablet.er, 1,950 MG PO BID, (Reported) TAKES IN THE MORNING AND WITH LUNCH Amoxicillin/Potassium Clav (Augmentin 875-125 Tablet) 1 Each Tablet, 1 TAB PO BID Ascorbic Acid (Vitamin C) 500 Mg Tablet, 1,000 MG PO DAILY, (Reported) Aspirin (Aspirin EC) 81 Mg Tab, 81 MG PO DAILY, (Reported) Atorvastatin Calcium (Lipitor) 10 Mg Tab, 10 MG PO QHS, (Reported) Calcium Citrate (Calcitrate) 200 Mg Tablet, 315 MG PO BID, (Reported) Cholecalciferol (Vitamin D3) (Vitamin D3) 2,000 Unit Cap, 2,000 UNIT PO DAILY, (Reported) Chondroitin Sulfate A Sodium (Optiflex-C) 400 Mg Capsule, 1,200 MG PO BID, (Reported) Flaxseed Oil (Flaxseed Oil) 1,000 Mg Cap, 540 MG PO BID, (Reported) Folic Acid (Folic Acid) 1 Mg Tab, 2 MG PO DAILY, (Reported) Glucosamine HCl (Glucosamine HCl) 1,500 Mg Tablet, 1,500 MG PO BID, (Reported) Hydrochlorothiazide (Hydrochlorothiazide) 25 Mg Tab, 25 MG PO DAILY, (Reported) Hydroxychloroquine Sulfate (Plaquenil) 200 Mg Tablet, 200 MG PO BID, (Reported) Lactase (Lactaid) 3,000 Unit Tab, 3,000 UNIT PO PRN, (Reported) [facility] DAIRY Lactobacillus Combo No.10 (Probiotic) 1 Each Capsule, 1 CAP PO DAILY, (Reported) Methotrexate Sodium (Methotrexate) 25 Mg/1 Ml Vial, 0.7 ML SC QWEEK, (Reported) TUESDAYS Metoprolol Succinate (Metoprolol Succinate) 25 Mg Tab, 25 MG PO QPM, (Reported) Multivitamins (Thera M Plus Tablet) 1 Tab Tab, 1 TAB PO DAILY, (Reported) [place]-3 Fatty Acids/Fish Oil (Fish Oil 1,200 mg Softgel) 1 Cap Cap, 1 CAP PO BID, (Reported) Pantoprazole Sodium (Protonix) 40 Mg Tab, 40 MG PO DAILY, (Reported) Polyethylene Glycol 3350 (Miralax) 119 Gm Powder, 17 GM PO DAILY, (Reported) Prednisone (Prednisone) 10 Mg Tablet, 5 MG PO DAILY, (Reported) Ubidecarenone (Coq-10) 100 Mg Capsule, 100 MG PO DAILY, (Reported) Valsartan (Valsartan) 320 Mg Tablet, 320 MG PO QPM, (Reported) [Borage Oil] 1,000 MG CAP, 1,000 MG PO BID, (Reported) Scheduled PRN Acetaminophen (Acetaminophen ER) 650 Mg Tablet.er, 1,950 MG PO QPM PRN for PAIN, (Reported) Nitroglycerin (Nitrostat) 0.4 Mg Subl, 0.4 MG SL NITRO PRN for CHEST PAIN, (Reported) Allergies Coded Allergies: No Known Allergies (Unverified , 05/16/18) JOVANY TOMLINSON MD Apr 30, 2019 12:06
== END 2019-04-30 12:05 | disposition home or self-care (01) | DRG 872 ==
LOC: M ED 17:49 → M ED INP 19:28 → M PCU 21:59 → M MSPAV 04-28 14:13
PROVIDERS: ADMIT Internal Medicine; ATTEND Internal Medicine
DX: A41.9 Sepsis, unspecified organism (principal); L03.116 Cellulitis of left lower limb; E87.1 Hypo-osmolality and hyponatremia; Z79.899 Other long term (current) drug therapy; Z79.82 Long term (current) use of aspirin; I25.10 Atherosclerotic heart disease of native coronary artery without angina pectoris; Z95.2 Presence of prosthetic heart valve; M06.9 Rheumatoid arthritis, unspecified; E78.5 Hyperlipidemia, unspecified; H40.9 Unspecified glaucoma; D64.9 Anemia, unspecified; I10 Essential (primary) hypertension; Z85.46 Personal history of malignant neoplasm of prostate; I72.4 Aneurysm of artery of lower extremity; F17.200 Nicotine dependence, unspecified, uncomplicated

== ENCOUNTER → 2019-05-06 | Outpatient (CLI) | payer MEDICARE ==
[~2019-05-06] MED LIST changes: +ACET650T15 PO; +AUGM875T28 PO; +LEVO500T3 PO
--- NOTE | 2019-05-08 15:33 | RADONC ---
RADIATION ONCOLOGY FOLLOWUP NOTE DATE: 05/06/2019 CHART NUMBER: DIAGNOSIS: Prostate cancer. STAGE: Stage III C, [id number], Shara score 9 (4+5), grade group five, PSA 6.77. ECOG performance status 0. FOLLOWUP: Mr. 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 The patient presents today reporting that he is doing quite well with no complaints at this time related to his radiation therapy or disease. He is having no urinary or bowel difficulties other than the usual urinary incontinence. He has no new problems at this time. The patient's review of systems is noncontributory. Denies nausea, vomiting, fevers, chills, night sweats, diplopia, headaches, anxiety or depression, anorexia, weight loss, visual disturbances, chest pain, urinary or bowel difficulties, bone pain, or neurological problems. PHYSICAL EXAMINATION: The patient is a well-developed, well-nourished male in no acute distress. HEENT exam is normocephalic, atraumatic. Extraocular movements are intact. There is no palpable cervical, supraclavicular, infraclavicular, axillary, or inguinal lymphadenopathy present. Lungs are clear to auscultation and percussion. Heart has a regular rate and rhythm. Abdomen is benign with no hepatosplenomegaly, masses, or tenderness. Rectal examination reveals a normal anal sphincter tone. His prostate bed is smooth with no evidence of nodularity. Skeletal examination reveals no tenderness to pressure or percussion of the bony skeleton. Extremities reveal no clubbing, cyanosis, or edema. Neurologic exam is grossly intact, as is the remainder of the physical examination. ASSESSMENT: The patient is clinically doing quite well at this time. He reports that he has a followup visit with his urologist Dr. Telles in August. I have therefore scheduled him to see our department in November for further followup as well.
== END ==
LOC: M ONCR 13:26
PROVIDERS: ATTEND Radiology Radiation Oncology
DX: C61 Malignant neoplasm of prostate (principal)

== ENCOUNTER → 2019-08-10 | Outpatient (CLI) | payer MEDICARE | LOC: M PLALAB 15:21 | PROVIDERS: ATTEND Urology | DX: C61 Malignant neoplasm of prostate (principal) ==

== ENCOUNTER → 2019-08-11 | Outpatient (CLI) | payer MEDICARE ==
--- NOTE | 2019-08-11 15:09 | REP ---
BILATERAL LOWER EXTREMITY DUPLEX DOPPLER ARTERIAL ULTRASOUND: Real-time ultrasound evaluation and duplex Doppler interrogation of bilateral lower extremity arterial systems is performed. There is mild to moderate plaquing bilaterally with significant plaque in the bilateral popliteal arteries and bilateral tibioperoneal trunks. There is significant stenosis of the right tibioperoneal trunk. Distal left posterior tibial artery and anterior tibial artery appear occluded, the distal end of the left anterior tibial artery is reconstituted at the dorsalis pedis. Biphasic and triphasic waveforms are seen bilaterally through the popliteal arteries and in the proximal anterior tibial arteries with otherwise monophasic waveforms in the remaining calf arteries. PEAK SYSTOLIC VELOCITY RIGHT LEFT Common femoral artery 106 cm/s 102 cm/s Profunda 87 78 SFA 86 103 Popliteal 30 62 Proximal SIMA 35 59 Tibial/peroneal trunk 391 33 Proximal FURNACE INSTALLER 25 29 Distal FURNACE INSTALLER 12 Occluded Distal SIMA 45 Occluded IMPRESSION: Mild to moderate plaque bilaterally in the common femoral and superficial femoral arteries with more significant plaquing in the popliteal arteries and tibioperoneal trunks, right greater than left. 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 There is occlusion of the distal left anterior and posterior tibial arteries. Electronically Signed by Max De Anda MD 08/11/2019 03:16 P
== END ==
LOC: M RAD 12:17
PROVIDERS: ATTEND Physician Assistant
DX: I70.213 Atherosclerosis of native arteries of extremities with intermittent claudication, bilateral legs (principal)

== ENCOUNTER → 2019-08-26 | Outpatient (CLI) | payer MEDICARE ==
--- NOTE | 2019-08-26 16:52 | REPPI ---
AP pelvis: Single view. History: Rheumatoid arthritis. No comparison views. Findings: Bony pelvic ring is intact. Vascular calcification is noted. There are degenerative disc and facet changes in the lower lumbar spine. Sacrum and SI joints are intact. No erosive change or ankylosis is seen. There are mild osteoarthritic changes at the hip joints bilaterally. Femoral heads are smooth and rounded. Impression: Bilateral mild hip joint osteoarthritis. Vascular calcification. Degenerative spondylosis changes in the lumbar spine. Electronically Signed by Sy Oakes MD 08/26/2019 05:43 P
[2019-08-26 17:52] LABS: BASO # 0.1 10^3/uL (0.0-0.2); BASO % 0.5 % (0.0-1.0); EOS # 0.2 10^3/uL (0.0-0.5); EOS % 1.9 % (0.0-3.0); HEMATOCRIT 37.6 % (42.0-52.0); HEMOGLOBIN 11.9 g/dl (13.5-17.5); LYMPH % 9.3 % (24.0-44.0); MEAN CORPUSCULAR HGB CONC 31.6 g/dl (32.0-36.5); MEAN CORPUSCULAR VOLUME 97.9 fl (80.0-96.0); NEUTROPHILS # 8.5 10^3/uL (1.5-8.5); NEUTROPHILS % 78.8 % (36.0-66.0); PLATELET COUNT, AUTOMATED 360 10^3/uL (150-450); RED BLOOD COUNT 3.84 10^6/uL (4.30-6.10); WHITE BLOOD COUNT 10.8 10^3/uL (4.0-10.0)
[2019-08-26 18:27] LABS: ERYTHROCYTE SEDIMENTATION RATE 32 mm/hr (0-20)
[2019-08-26 23:37] LABS: ALBUMIN 3.6 GM/DL (3.2-5.2); ALT/SGPT 17 U/L (12-78); BILIRUBIN,TOTAL 0.5 MG/DL (0.2-1.0); BLOOD UREA NITROGEN 16 MG/DL (7-18); C REACTIVE PROTEIN QUANTITATIV 0.54 MG/DL (0.00-0.30); CALCIUM LEVEL 9.7 MG/DL (8.8-10.2); CARBON DIOXIDE LEVEL 28 MEQ/L (21-32); CHLORIDE LEVEL 102 MEQ/L (98-107); CREATININE FOR GFR 1.01 MG/DL (0.70-1.30); GLOMERULAR FILTRATION RATE > 60.0 (>42); GLUCOSE, FASTING 76 MG/DL (70-100); POTASSIUM SERUM 4.8 MEQ/L (3.5-5.1); SODIUM LEVEL 136 MEQ/L (136-145); TOTAL PROTEIN 6.8 GM/DL (6.4-8.2)
== END ==
LOC: M PLAIMG 12:36
PROVIDERS: ATTEND Internal Medicine Rheumatology
DX: M06.9 Rheumatoid arthritis, unspecified (principal)

== ENCOUNTER → 2019-11-23 | Outpatient (REF) | payer MEDICARE | LOC: M SFHCRHEU 14:27 | PROVIDERS: ATTEND Internal Medicine | DX: M05.79 Rheumatoid arthritis with rheumatoid factor of multiple sites without organ or systems involvement (principal); Z53.8 Procedure and treatment not carried out for other reasons ==

== ENCOUNTER → 2019-11-24 | Outpatient (REF) | payer MEDICARE ==
[2019-11-24 18:08] LABS: BASO % 0.4 % (0.0-1.0); EOS # 0.2 10^3/uL (0.0-0.5); EOS % 1.9 % (0.0-3.0); HEMATOCRIT 38.2 % (42.0-52.0); HEMOGLOBIN 12.5 g/dl (13.5-17.5); LYMPH # 1.1 10^3/uL (1.5-5.0); LYMPH % 12.1 % (24.0-44.0); MEAN CORPUSCULAR HEMOGLOBIN 31.4 pg (27.0-33.0); MEAN CORPUSCULAR HGB CONC 32.7 g/dl (32.0-36.5); MONO # 0.8 10^3/uL (0.0-0.8); MONO % 8.3 % (0.0-5.0); NEUTROPHILS # 7.3 10^3/uL (1.5-8.5); NEUTROPHILS % 76.8 % (36.0-66.0); PLATELET COUNT, AUTOMATED 341 10^3/uL (150-450); RED BLOOD COUNT 3.98 10^6/uL (4.30-6.10); WHITE BLOOD COUNT 9.4 10^3/uL (4.0-10.0)
[2019-11-24 18:26] LABS: ALBUMIN 3.9 GM/DL (3.2-5.2); ALT/SGPT 23 U/L (12-78); BILIRUBIN,TOTAL 0.4 MG/DL (0.2-1.0); BLOOD UREA NITROGEN 18 MG/DL (7-18); C REACTIVE PROTEIN QUANTITATIV < 0.30 MG/DL (0.00-0.30); CALCIUM LEVEL 9.8 MG/DL (8.8-10.2); CARBON DIOXIDE LEVEL 25 MEQ/L (21-32); CHLORIDE LEVEL 106 MEQ/L (98-107); CREATININE FOR GFR 1.03 MG/DL (0.70-1.30); GLOMERULAR FILTRATION RATE > 60.0 (>42); GLUCOSE, FASTING 76 MG/DL (70-100); POTASSIUM SERUM 4.6 MEQ/L (3.5-5.1); SODIUM LEVEL 136 MEQ/L (136-145); TOTAL PROTEIN 7.1 GM/DL (6.4-8.2)
[2019-11-24 19:07] LABS: ERYTHROCYTE SEDIMENTATION RATE 18 mm/hr (0-20)
== END ==
LOC: M SFHCRHEU 14:37
PROVIDERS: ATTEND Internal Medicine
DX: M05.79 Rheumatoid arthritis with rheumatoid factor of multiple sites without organ or systems involvement (principal)

== ENCOUNTER 2019-12-09 14:34 | Outpatient (RCR) | payer MEDICARE ==
--- NOTE | 2019-12-14 14:50 | RADONC ---
RADIATION ONCOLOGY TELEPHONE NOTE DATE: 12/09/2019 CHART #: [id number] DIAGNOSIS: Prostate cancer. STAGE: III C, T3a, N0, M0, Fowler score 9 (4-5) grade group 5, PSA 6.77. ECOG PERFORMANCE STATUS: 0. PROGRESS NOTE: Mr. Renee is very pleasant 73-year-old white male with the diagnosis of a stage III C, T3a, N0, M0, poorly differentiated Shara score 9 (4-5) adenocarcinoma of the prostate who completed radiation 8 months ago. I called the patient today and he reports that he is doing quite well with no problems related to his radiation therapy. He reports that he still has some urinary incontinence which is unchanged. REVIEW OF SYSTEMS: The patient's review of systems is noncontributory. He denies standard review of systems except for incontinence. This was a telephone conversation and the patient was not brought in today secondary to COVID-19 precautions. ASSESSMENT: The patient reports that he is being followed closely by Dr. Telles. He just saw Dr. Telles 3 months ago and is scheduled for a new PSA through Dr. Telles's office in February. He has routine followup there. In light of the fact that I am retiring and he is receiving close followup visits through his urologist, I have discharged him from my followup except on a p.r.n. basis. cc: MD Edin Staples MD
== END 2019-12-15 ==
LOC: M ONCR 14:34
PROVIDERS: ATTEND Radiology Radiation Oncology
DX: C61 Malignant neoplasm of prostate (principal)

== ENCOUNTER → 2020-01-21 | Outpatient (CLI) | payer MEDICARE ==
[~2020-01-21] MED LIST changes: +VITA-243 PO; -VITA500T PO
[2020-01-21 11:35] LABS: BASO % 0.7 % (0.0-1.0); EOS # 0.2 10^3/uL (0.0-0.5); HEMOGLOBIN 12.6 g/dl (13.5-17.5); LYMPH # 0.7 10^3/uL (1.5-5.0); LYMPH % 11.1 % (24.0-44.0); MEAN CORPUSCULAR HEMOGLOBIN 31.6 pg (27.0-33.0); MEAN CORPUSCULAR HGB CONC 33.2 g/dl (32.0-36.5); MEAN CORPUSCULAR VOLUME 95.2 fl (80.0-96.0); MONO # 0.7 10^3/uL (0.0-0.8); MONO % 11.3 % (0.0-5.0); NEUTROPHILS # 4.4 10^3/uL (1.5-8.5); NEUTROPHILS % 73.4 % (36.0-66.0); PLATELET COUNT, AUTOMATED 324 10^3/uL (150-450); RED BLOOD COUNT 3.99 10^6/uL (4.30-6.10); WHITE BLOOD COUNT 5.9 10^3/uL (4.0-10.0)
[2020-01-21 12:07] LABS: ERYTHROCYTE SEDIMENTATION RATE 19 mm/hr (0-20)
[2020-01-21 12:14] LABS: ALBUMIN 3.7 GM/DL (3.2-5.2); ALT/SGPT 38 U/L (12-78); BILIRUBIN,TOTAL 0.4 MG/DL (0.2-1.0); BLOOD UREA NITROGEN 16 MG/DL (7-18); C REACTIVE PROTEIN QUANTITATIV < 0.30 MG/DL (0.00-0.30); CALCIUM LEVEL 9.4 MG/DL (8.8-10.2); CARBON DIOXIDE LEVEL 25 MEQ/L (21-32); CHLORIDE LEVEL 103 MEQ/L (98-107); CREATININE FOR GFR 0.99 MG/DL (0.70-1.30); GLOMERULAR FILTRATION RATE > 60.0 (>42); GLUCOSE, FASTING 84 MG/DL (70-100); POTASSIUM SERUM 4.9 MEQ/L (3.5-5.1); SODIUM LEVEL 134 MEQ/L (136-145); TOTAL PROTEIN 6.7 GM/DL (6.4-8.2)
== END ==
LOC: M PLALAB 10:26
PROVIDERS: ATTEND Internal Medicine
DX: M05.79 Rheumatoid arthritis with rheumatoid factor of multiple sites without organ or systems involvement (principal)

== ENCOUNTER → 2020-03-15 | Outpatient (CLI) | payer MEDICARE | LOC: M PLALAB 11:47 | PROVIDERS: ATTEND Urology | DX: C61 Malignant neoplasm of prostate (principal) ==

== ENCOUNTER → 2020-03-15 | Outpatient (CLI) | payer MEDICARE ==
--- NOTE | 2020-03-15 14:47 | REP ---
Bilateral lower extremity arterial Doppler ultrasound: History: Bilateral claudication. Comparison study August 11, 2019. Findings: Ankle brachial indices could not be accomplished due to calcified noncompressible vessels. Posterior tibial on the left is occluded as is the distal anterior tibial artery on the left. Monophasic waveforms are noted in the arterial tracing of the anterior tibial proximally on the left and the proximal posterior tibial on the left. Monophasic waveforms are seen distal to the popliteal on the right. Mild to moderate plaquing is seen diffusely. These high-grade stenosis is seen in the right tibial peroneal trunk, 11:1 velocity ratio. Right lower extremity arterial Doppler velocity chart: Right CF A PSV 82 cm/S Profunda 82 Proximal SFA 83 Mid SFA 64 Distal SFA 75 Popliteal 36 Proximal AT A 38 Tibioperoneal trunk 426/64 Proximal ORACLE SOFTWARE ENGINEER 46 Distal ORACLE SOFTWARE ENGINEER 69 Distal AT A 829 Left lower extremity arterial Doppler velocity chart: Left CF A 81 cm/S Profunda 72 Proximal SFA 84 Mid SFA 95 Distal SFA 96 Popliteal 57 Tibioperoneal trunk 57 Proximal ORACLE SOFTWARE ENGINEER 45 Distal ORACLE SOFTWARE ENGINEER occluded Distal AT A occluded Electronically Signed by Sy Oakes MD 03/15/2020 02:39 P
== END ==
LOC: M RAD 12:25
PROVIDERS: ATTEND Physician Assistant
DX: I70.213 Atherosclerosis of native arteries of extremities with intermittent claudication, bilateral legs (principal)

== ENCOUNTER → 2020-05-24 | Outpatient (REF) | payer MEDICARE ==
[~2020-05-24] MED LIST changes: +AMLO1TAB24 PO; +D31000TA2 PO; +IRBE300T7 PO; +LABE10TAB PO; +LEFL20TA10 PO
[2020-05-24 15:40] LABS: BASO % 0.5 % (0.0-1.0); EOS # 0.2 10^3/uL (0.0-0.5); EOS % 3.8 % (0.0-3.0); HEMATOCRIT 33.9 % (42.0-52.0); HEMOGLOBIN 11.1 g/dl (13.5-17.5); LYMPH # 0.9 10^3/uL (1.5-5.0); LYMPH % 15.4 % (24.0-44.0); MEAN CORPUSCULAR HGB CONC 32.7 g/dl (32.0-36.5); MEAN CORPUSCULAR VOLUME 97.7 fl (80.0-96.0); MONO % 16.3 % (0.0-5.0); NEUTROPHILS # 3.9 10^3/uL (1.5-8.5); NEUTROPHILS % 63.5 % (36.0-66.0); PLATELET COUNT, AUTOMATED 323 10^3/uL (150-450); RED BLOOD COUNT 3.47 10^6/uL (4.30-6.10); WHITE BLOOD COUNT 6.1 10^3/uL (4.0-10.0)
[2020-05-24 16:06] LABS: ALBUMIN 3.6 GM/DL (3.2-5.2); ALT/SGPT 28 U/L (12-78); BILIRUBIN,TOTAL 0.5 MG/DL (0.2-1.0); BLOOD UREA NITROGEN 16 MG/DL (7-18); CALCIUM LEVEL 9.7 MG/DL (8.8-10.2); CARBON DIOXIDE LEVEL 26 MEQ/L (21-32); CHLORIDE LEVEL 106 MEQ/L (98-107); CREATININE FOR GFR 1.05 MG/DL (0.70-1.30); GLOMERULAR FILTRATION RATE > 60.0 (>42); GLUCOSE, FASTING 75 MG/DL (70-100); POTASSIUM SERUM 4.5 MEQ/L (3.5-5.1); SODIUM LEVEL 136 MEQ/L (136-145); TOTAL PROTEIN 6.7 GM/DL (6.4-8.2)
[2020-05-24 16:31] LABS: ERYTHROCYTE SEDIMENTATION RATE 19 mm/hr (0-20)
== END ==
LOC: M PLALAB 14:58
PROVIDERS: ATTEND Internal Medicine
DX: M05.79 Rheumatoid arthritis with rheumatoid factor of multiple sites without organ or systems involvement (principal)

== ENCOUNTER → 2020-06-22 | Outpatient (CLI) | payer MEDICARE | LOC: M LABSMTC 11:04 | PROVIDERS: ATTEND Anesthesiology | DX: Z01.812 Encounter for preprocedural laboratory examination (principal); Z20.828 Contact with and (suspected) exposure to other viral communicable diseases ==

== ENCOUNTER → 2020-06-22 | Outpatient (REF) | payer MEDICARE | LOC: M PLALAB 11:16 | PROVIDERS: ATTEND Urology | DX: Z01.812 Encounter for preprocedural laboratory examination (principal); C61 Malignant neoplasm of prostate; Z20.828 Contact with and (suspected) exposure to other viral communicable diseases | CPT/HCPCS: 36415; 84153; C9803; U0003 ==

== ENCOUNTER → 2020-06-24 | Outpatient (CLI) | payer MEDICARE ==
--- NOTE | 2020-07-05 14:29 | REP ---
AP SPINE L1 - L4 1.224 0.2 0.5 LT FEMUR TOTAL 0.883 -1.0 -0.7 LT NECK 0.840 -1.4 -0.5 RT FEMUR TOTAL 0.905 -0.8 -0.6 RT NECK 0.812 -1.6 -0.7 TOTAL BODY TOTAL OTHER COMMENTS: Normal bone densitometry of the spine. There is low bone density of the hips. FOLLOW-UP: Recommendation for the next bone density exam: 2 years. LIDIA
== END ==
LOC: M WHC 13:19
PROVIDERS: ATTEND Internal Medicine
DX: M06.9 Rheumatoid arthritis, unspecified (principal); M85.851 Other specified disorders of bone density and structure, right thigh; M85.852 Other specified disorders of bone density and structure, left thigh

== ENCOUNTER 2020-06-27 06:29 | Day surgery (SDC) | payer MEDICARE ==
[~2020-06-27] VITALS: Ht 182.9 cm; Wt 82.6 kg
[~2020-06-27 06:29] MED LIST changes: +NS 1,000 ML IV ONE
[2020-06-27] MEDS ORDERED: LIDOCAINE 2% 100MG/5ML SDV (FOR ANES.) As Ordered ONE (07:09)
[2020-06-27] MEDS ORDERED: propofoL 200 MG/20 ML VIAL As Ordered ONE (08:15)
--- NOTE | 2020-06-27 08:25 | ROOR ---
Patient Name: Jamal Renee Procedure Date: 06/27/2020 7:41 AM Date of : 1945 Age: 74 Room: [facility] Gender: Male Note Status: Finalized Procedure: Colonoscopy Indications: High risk colon cancer surveillance: Personal history of colonic polyps Providers: Geremias Chang MD Referring MD: Adalid Martinez MD Requesting Provider: Medicines: Monitored Anesthesia Care Complications: No immediate complications. Procedure: Pre-Anesthesia Assessment: - Prior to the procedure, a History and Physical was performed, and patient medications and allergies were reviewed. The patient is competent. The risks and benefits of the procedure and the sedation options and risks were discussed with the patient. All questions were answered and informed consent was obtained. Patient identification and proposed procedure were verified by the physician, the nurse and the anesthesiologist in the procedure room. Mental Status Examination: alert and oriented. Airway Examination: normal oropharyngeal airway and neck mobility. Respiratory Examination: clear to auscultation. CV Examination: normal. Prophylactic Antibiotics: The patient does not require prophylactic antibiotics. Prior Anticoagulants: The patient has taken no previous anticoagulant or antiplatelet agents. ASA Grade Assessment: II - A patient with mild systemic disease. After reviewing the risks and benefits, the patient was deemed in satisfactory condition to undergo the procedure. The anesthesia plan was to use monitored anesthesia care (MAC). Immediately prior to administration of medications, the patient was re-assessed for adequacy to receive sedatives. The heart rate, respiratory rate, oxygen saturations, blood pressure, adequacy of pulmonary ventilation, and response to care were monitored throughout the procedure. The physical status of the patient was re-assessed after the procedure. The Colonoscope was introduced through the anus and advanced to the terminal ileum, with identification of the appendiceal orifice and IC valve. The colonoscopy was performed without difficulty. The patient tolerated the procedure well. The quality of the bowel preparation was good. The terminal ileum, ileocecal valve, appendiceal orifice, and rectum were photographed. Scope insertion time was 4 minutes. Scope withdrawal time was 11 minutes. The total duration of the procedure was 15 minutes. Findings: The perianal and digital rectal examinations were normal. Three sessile polyps were found in the descending colon and ascending colon. The polyps were 6 to 10 mm in size. These polyps were removed with a cold snare. Resection and retrieval were complete. Verification of patient identification for the specimen was done by the physician and nurse using the patient's name, date and medical record number. Estimated blood loss was minimal. For hemostasis, one hemostatic clip was successfully placed. There was no bleeding at the end of the procedure. Patchy moderate inflammation characterized by altered vascularity and erythema was found in the distal rectum. Non-bleeding external and internal hemorrhoids were found during retroflexion. The hemorrhoids were medium-sized. Impression: - Three 6 to 10 mm polyps in the descending colon and in the ascending colon, removed with a cold snare. Resected and retrieved. Clip was placed. 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 - Non-bleeding external and internal hemorrhoids. Recommendation: - Patient has a contact number available for emergencies. The signs and symptoms of potential delayed complications were discussed with the patient. Return to normal activities tomorrow. Written discharge instructions were provided to the patient. - High fiber diet. - Continue present medications. - Await pathology results. - Repeat colonoscopy in 3 - 5 years for surveillance based on pathology results. - Telephone GI clinic for pathology results in 2 weeks. - Return to primary care physician. Geremias Chang MD Geremias Chang MD 06/27/2020 8:25:06 AM Electronically signed by Geremias Chang MD Number of Addenda: 0 Note Initiated On: 06/27/2020 7:41 AM Estimated Blood Loss: Estimated blood loss was minimal.
[2020-06-27 08:35] VITALS: BP 140/66
== END 2020-06-27 08:45 | disposition home or self-care (01) ==
LOC: M OPP 06:29
PROVIDERS: ATTEND Internal Medicine Gastroenterology
DX: Z12.11 Encounter for screening for malignant neoplasm of colon (principal); Z86.010 Personal history of colon polyps; K63.5 Polyp of colon; K64.8 Other hemorrhoids; K62.7 Radiation proctitis; I25.10 Atherosclerotic heart disease of native coronary artery without angina pectoris; I10 Essential (primary) hypertension; E78.5 Hyperlipidemia, unspecified; M19.90 Unspecified osteoarthritis, unspecified site; C61 Malignant neoplasm of prostate; M06.9 Rheumatoid arthritis, unspecified; Z92.3 Personal history of irradiation; Z95.5 Presence of coronary angioplasty implant and graft; Z79.82 Long term (current) use of aspirin; Z79.899 Other long term (current) drug therapy; Z80.42 Family history of malignant neoplasm of prostate; Z82.49 Family history of ischemic heart disease and other diseases of the circulatory system

== ENCOUNTER → 2020-08-03 | Outpatient (REF) | payer MEDICARE ==
[~2020-08-03] MED LIST changes: -NS 1,000 ML IV ONE
== END ==
LOC: M LABSMT 16:49
PROVIDERS: ATTEND Urology
DX: C61 Malignant neoplasm of prostate (principal); R97.21 Rising PSA following treatment for malignant neoplasm of prostate

== ENCOUNTER → 2020-08-31 | Outpatient (REF) | payer MEDICARE ==
[~2020-08-31] MED LIST changes: +LABE100T4 PO; -LABE10TAB PO
[2020-08-31 17:30] LABS: BASO % 0.4 % (0.0-1.0); EOS # 0.1 10^3/uL (0.0-0.5); EOS % 1.5 % (0.0-3.0); HEMATOCRIT 34.3 % (42.0-52.0); HEMOGLOBIN 11.1 g/dl (13.5-17.5); LYMPH # 0.7 10^3/uL (1.5-5.0); LYMPH % 9.4 % (24.0-44.0); MEAN CORPUSCULAR HEMOGLOBIN 31.1 pg (27.0-33.0); MEAN CORPUSCULAR HGB CONC 32.4 g/dl (32.0-36.5); MEAN CORPUSCULAR VOLUME 96.1 fl (80.0-96.0); MONO # 0.9 10^3/uL (0.0-0.8); MONO % 11.6 % (0.0-5.0); NEUTROPHILS % 76.6 % (36.0-66.0); PLATELET COUNT, AUTOMATED 414 10^3/uL (150-450); RED BLOOD COUNT 3.57 10^6/uL (4.30-6.10); WHITE BLOOD COUNT 7.8 10^3/uL (4.0-10.0)
[2020-08-31 17:48] LABS: ERYTHROCYTE SEDIMENTATION RATE 10 mm/hr (0-20)
[2020-08-31 17:51] LABS: ALBUMIN 3.9 GM/DL (3.2-5.2); ALT/SGPT 34 U/L (12-78); BILIRUBIN,TOTAL 0.6 MG/DL (0.2-1.0); BLOOD UREA NITROGEN 10 MG/DL (7-18); CALCIUM LEVEL 9.5 MG/DL (8.8-10.2); CARBON DIOXIDE LEVEL 28 MEQ/L (21-32); CHLORIDE LEVEL 98 MEQ/L (98-107); CREATININE FOR GFR 0.97 MG/DL (0.70-1.30); GLOMERULAR FILTRATION RATE > 60.0 (>42); GLUCOSE, FASTING 92 MG/DL (70-100); SODIUM LEVEL 131 MEQ/L (136-145); TOTAL PROTEIN 6.8 GM/DL (6.4-8.2)
== END ==
LOC: M PLALAB 15:05
PROVIDERS: ATTEND Internal Medicine
DX: M05.79 Rheumatoid arthritis with rheumatoid factor of multiple sites without organ or systems involvement (principal)

== ENCOUNTER → 2020-09-06 | Outpatient (REF) | payer MEDICARE ==
[~2020-09-06] MED LIST changes: +HYDR-3490 PO; -HYDR25TAB PO
[2020-09-06 17:30] LABS: FERRITIN 338 NG/ML (26-388); IRON (FE) 111 UG/DL (65-175); TOTAL PROTEIN 7.3 GM/DL (6.4-8.2)
[2020-09-06 17:38] LABS: FOLATE > 24.0 NG/ML (>5.4); VITAMIN B12 LEVEL 1221 PG/ML (247-911)
[2020-09-06 17:41] LABS: FOLATE > 24.0 NG/ML; VITAMIN B12 LEVEL 1186 PG/ML
[2020-09-12 13:35] LABS: ALBUMIN 4.65 GM/DL (3.29-5.55); ALBUMIN % 63.7 % (55.8-66.1); ALPHA-1-GLOBULIN % 4.5 % (2.9-4.9); ALPHA-1-GLOBULINS 0.33 GM/DL (0.17-0.41); ALPHA-2-GLOBULINS 0.84 GM/DL (0.42-0.99); ALPHA-2-GLOBULINS % 11.5 % (7.1-11.8); BETA-1-GLOBULINS 0.45 GM/DL (0.28-0.60); BETA-1-GLOBULINS % 6.2 % (4.7-7.2); BETA-2-GLOBULINS 0.35 GM/DL (0.19-0.55); BETA-2-GLOBULINS % 4.8 % (3.2-6.5); GAMMA GLOBULIN % 9.3 % (11.1-18.8); GAMMA GLOBULINS 0.68 GM/DL (0.65-1.58)
== END ==
LOC: M SFHCRHEU 15:17
PROVIDERS: ATTEND Internal Medicine
DX: D64.9 Anemia, unspecified (principal)
CPT/HCPCS: 82607; 82728; 82746; 83540; 84165; G0463

== ENCOUNTER → 2020-10-12 | Outpatient (CLI) | payer MEDICARE ==
[~2020-10-12] MED LIST changes: -HYDR-3490 PO; +HYDR25TAB PO
--- NOTE | 2020-10-12 17:15 | REP ---
INDICATION: ATHEROSCLEROSIS. COMPARISON: Multiple FINDINGS: On the right: Ankle brachial index unobtainable. RISK ANALYST 111.6/83.1 centimeters/second triphasic Profundal a 213.4 centimeters/second triphasic SFA proximal 70.9 centimeters/second triphasic SFA mid 76.9 centimeters/second triphasic SFA distal 76.9 centimeters/second triphasic Popliteal 202.5/28.3 centimeters/second triphasic SIMA proximal 52.7 centimeters/second triphasic Tibioperoneal trunk 27.5 centimeters/second triphasic OBSTETRICS GYNECOLOGY PHYSICIAN proximal 57.5 centimeters/second triphasic OBSTETRICS GYNECOLOGY PHYSICIAN distal 48.4 centimeters/second monophasic SIMA distal 24.9 centimeters/second monophasic On the left: The ankle brachial index was unobtainable. RISK ANALYST 80.3 centimeters/second triphasic Rickey find a 115.1 centimeters/second triphasic SFA proximal 84.3 centimeters/second triphasic SFA Mid 79.5 centimeters/second biphasic SFA distal 99.5 centimeters/second triphasic Popliteal 80.5 centimeters/second triphasic SIMA proximal 32.2 centimeters/second monophasic Tibioperoneal trunk 94.0 centimeters/second monophasic OBSTETRICS GYNECOLOGY PHYSICIAN proximal 22.7 centimeters/second monophasic OBSTETRICS GYNECOLOGY PHYSICIAN distal 136 centimeter/second monophasic SIMA distal 36.7 centimeters/second monophasic Heavily calcified vessels were seen bilaterally. A suspected right profundal stenosis of 2.6:1 was identified. A right distal popliteal stenosis of 40:1 was suspected. The midportion of the left OBSTETRICS GYNECOLOGY PHYSICIAN was seen to be occluded and revascularized. IMPRESSION: As above <Electronically signed by José Miguel Waldron > 10/12/20 [id number]
== END ==
LOC: M RAD 13:19
PROVIDERS: ATTEND Physician Assistant
DX: I70.213 Atherosclerosis of native arteries of extremities with intermittent claudication, bilateral legs (principal)

== ENCOUNTER → 2020-12-15 | Outpatient (REF) | payer MEDICARE ==
[~2020-12-15] MED LIST changes: -FOLI400T PO; +FOLI400T13 PO; +HYDR-3490 PO; -HYDR25TAB PO
== END ==
LOC: M SMT 15:12
PROVIDERS: ATTEND Urology
DX: C61 Malignant neoplasm of prostate (principal)

== ENCOUNTER → 2021-02-17 | Outpatient (CLI) | payer MEDICARE ==
[~2021-02-17] MED LIST changes: +ISOVUE-370 76% 100ML VIAL As Ordered ONE
--- NOTE | 2021-02-17 12:03 | REP ---
INDICATION: RISING PSA, MALIGNANT NEOPLASM OF PROSTATE. COMPARISON: None TECHNIQUE: Axial contrast-enhanced images from the lung bases to the pubic symphysis using 100 cc Isovue 370 intravenous contrast material. Coronal and sagittal reformations obtained along with delayed images of the abdomen. This CT examination was performed using the following dose reduction techniques: Automated exposure control, adjustment of mA and/or kv according to the patient's size, and the use of iterative reconstruction technique. FINDINGS: Liver demonstrates few incidental subcentimeter hypodensities compatible with cysts and unchanged compared to prior examination. Cholelithiasis noted without acute cholecystitis. Spleen, pancreas, and bilateral adrenal glands are normal. Kidneys demonstrate stable bilateral simple cysts measuring up to 2.7 cm on the right and 1.1 cm on the left. The enteric system is without obstruction or obvious acute inflammatory process. Scattered sigmoid diverticula noted without acute diverticulitis. There is mucosal thickening of the rectosigmoid which is nonspecific and possibly related to prior radiation therapy although correlation is recommended to exclude acute process. Pelvis demonstrates normal bladder and evidence for prior prostatectomy. Small nonspecific pelvic sidewall lymph nodes measure up to 7 mm. No obvious recurrence or significant adenopathy otherwise noted within the pelvis. No ascites. No free air. No intraperitoneal or retroperitoneal adenopathy. Atherosclerotic changes to the aorta and vasculature noted without aneurysm or dissection. Musculoskeletal structures demonstrate degenerative changes without focal sclerotic or lytic lesions to suggest osseous metastatic disease by CT. IMPRESSION: 1. No obvious evidence for recurrence or metastatic disease. No ascites, significant adenopathy, or focal inflammatory stranding. 2. Chronic stable benign findings including subcentimeter hepatic cysts and bilateral renal cysts. 3. Cholelithiasis without acute cholecystitis. 4. Mild circumferential mucosal thickening to the rectosigmoid may reflect post radiation type changes. Correlation and colonoscopy may be warranted for further investigation. <Electronically signed by Tato Carmichael > 02/17/21 1200
--- NOTE | 2021-02-17 13:55 | REP ---
INDICATION: RISING PSA, MALIGNANT NEOPLASM OF PROSTATE. COMPARISON: Bone scan 11/15/2017, CT abdomen and pelvis 02/17/2021. TECHNIQUE/RADIOTRACER AND DOSE: Following the intravenous administration of 20.5mCi technetium 99 M MDP, patient's whole-body is imaged in multiple projections. FINDINGS: New arthritic uptake is seen at the L1-2 and L4-5 disc levels. Arthritic uptake is again seen in both hands and wrists, as well as bilateral feet. There is a new focus of increased uptake in the proximal left femoral shaft. There are no other new findings. There is renal and bladder activity seen. IMPRESSION: New focus of increased uptake in the proximal left femoral shaft could represent a metastatic lesion. Further evaluation may be made with MRI with and without contrast. <Electronically signed by Max De Anda > 02/17/21 [id number]
== END ==
LOC: M RAD 09:16
PROVIDERS: ATTEND Urology
DX: R97.21 Rising PSA following treatment for malignant neoplasm of prostate (principal)
CPT/HCPCS: 74177; 78306; A9503; Q9967

== ENCOUNTER → 2021-04-05 | Outpatient (CLI) | payer MEDICARE ==
[~2021-04-05] MED LIST changes: -ISOVUE-370 76% 100ML VIAL As Ordered ONE
[2021-04-05 17:12] LABS: ALBUMIN 3.6 GM/DL (3.2-5.2); ALT/SGPT 36 U/L (12-78); BILIRUBIN,TOTAL 0.5 MG/DL (0.2-1.0); BLOOD UREA NITROGEN 10 MG/DL (7-18); CALCIUM LEVEL 9.6 MG/DL (8.8-10.2); CARBON DIOXIDE LEVEL 26 MEQ/L (21-32); CHLORIDE LEVEL 106 MEQ/L (98-107); CREATININE FOR GFR 0.79 MG/DL (0.70-1.30); GLOMERULAR FILTRATION RATE > 60.0 (>42); GLUCOSE, FASTING 105 MG/DL (70-100); POTASSIUM SERUM 4.3 MEQ/L (3.5-5.1); SODIUM LEVEL 138 MEQ/L (136-145); TOTAL PROTEIN 6.7 GM/DL (6.4-8.2)
[2021-04-05 17:22] LABS: BASO % 0.4 % (0.0-1.0); EOS # 0.1 10^3/uL (0.0-0.5); EOS % 1.6 % (0.0-3.0); HEMATOCRIT 35.7 % (42.0-52.0); HEMOGLOBIN 11.7 g/dl (13.5-17.5); LYMPH # 0.8 10^3/uL (1.5-5.0); LYMPH % 9.4 % (24.0-44.0); MEAN CORPUSCULAR HEMOGLOBIN 31.8 pg (27.0-33.0); MEAN CORPUSCULAR HGB CONC 32.8 g/dl (32.0-36.5); MONO # 0.8 10^3/uL (0.0-0.8); MONO % 9.2 % (2.0-8.0); NEUTROPHILS # 6.5 10^3/uL (1.5-8.5); NEUTROPHILS % 78.7 % (36.0-66.0); PLATELET COUNT, AUTOMATED 357 10^3/uL (150-450); RED BLOOD COUNT 3.68 10^6/uL (4.30-6.10); WHITE BLOOD COUNT 8.2 10^3/uL (4.0-10.0)
[2021-04-05 18:58] LABS: ERYTHROCYTE SEDIMENTATION RATE 13 mm/hr (0-20)
== END ==
LOC: M PLALAB 13:38
PROVIDERS: ATTEND Internal Medicine Rheumatology
DX: M06.09 Rheumatoid arthritis without rheumatoid factor, multiple sites (principal)

== ENCOUNTER → 2021-06-12 | Outpatient (CLI) | payer MEDICARE ==
[~2021-06-12] MED LIST changes: +LEFL10TA12 PO; -LEFL20TA10 PO
== END ==
LOC: M PLALAB 15:32
PROVIDERS: ATTEND Urology
DX: C61 Malignant neoplasm of prostate (principal); R97.21 Rising PSA following treatment for malignant neoplasm of prostate

== ENCOUNTER → 2021-10-24 | Outpatient (CLI) | payer MEDICARE ==
[~2021-10-24] MED LIST changes: -LEVO500T3 PO; +LEVO500T4 PO
== END ==
LOC: M PLALAB 13:01
PROVIDERS: ATTEND Urology
DX: C61 Malignant neoplasm of prostate (principal)

== ENCOUNTER → 2023-01-25 | Outpatient (REF) | payer MEDICARE ==
[~2023-01-25] MED LIST changes: +CLOP75TA99 PO; -COZA100T2 PO; +COZA100T3 PO; -D31000TA2 PO; -LABE100T4 PO; +LABE100T6 PO; -LACT3000 PO; +LACT30006 PO; +LEVO1TAB39 PO; -LEVO500T4 PO; -PLAV1TAB2 PO; +VITA100093 PO
== END ==
LOC: M SFHCRHEU 15:27
PROVIDERS: ATTEND Internal Medicine Rheumatology
DX: M05.79 Rheumatoid arthritis with rheumatoid factor of multiple sites without organ or systems involvement (principal); D64.9 Anemia, unspecified; M85.851 Other specified disorders of bone density and structure, right thigh; Z79.899 Other long term (current) drug therapy; M79.671 Pain in right foot; M79.672 Pain in left foot

== ENCOUNTER → 2024-04-14 | Outpatient (CLI) | payer MEDICARE ==
[~2024-04-14] MED LIST changes: +AMLO1TAB25 PO; +BACL10TA2 PO; +BACL5TAB2; +BACL5TAB2 PO; -COZA100T3 PO; +HYDR-643; +IRBE300T25 PO; -IRBE300T7 PO; -LEFL1TAB4 PO; +LEFL20TA15 PO; +LOSA-530 PO; +METO1TAB32; +OXYC-517 PO; +OXYC10TA12 PO; +SUCR1TAB56; +XTAN40CA PO
== END ==
LOC: M ONCR 16:00
PROVIDERS: ATTEND General Practice
DX: C79.51 Secondary malignant neoplasm of bone (principal); Z79.899 Other long term (current) drug therapy; Z80.42 Family history of malignant neoplasm of prostate; Z85.46 Personal history of malignant neoplasm of prostate; Z87.891 Personal history of nicotine dependence; Z92.3 Personal history of irradiation; Z92.29 Personal history of other drug therapy; Z95.5 Presence of coronary angioplasty implant and graft

== ENCOUNTER → 2024-04-15 | Outpatient (RCR) | payer MEDICARE ==
[~2024-04-15] MED LIST changes: -BACL5TAB2; -OXYC10TA12 PO
== END ==
LOC: M ONCR 10:23
PROVIDERS: ATTEND General Practice
DX: Z51.0 Encounter for antineoplastic radiation therapy (principal); C79.51 Secondary malignant neoplasm of bone

== ENCOUNTER 2024-04-24 10:07 | Outpatient (RCR) | payer MEDICARE ==
[2024-05-13] MEDS ORDERED: BACL5TAB2 (10:57)
[2024-05-13] MEDS ORDERED: OXYC10TA12 PO (11:53)
[2024-05-27] MEDS ORDERED: OXYC10TA12 PO (14:30)
== END 2024-05-16 ==
LOC: M ONCR 10:07
PROVIDERS: ATTEND General Practice
DX: Z51.0 Encounter for antineoplastic radiation therapy (principal); C61 Malignant neoplasm of prostate